=== PATIENT | female | born 1940 | race Caucasian/White ===

== ENCOUNTER 2017-07-18 07:18 | Emergency (ER) | payer BC, MEDICARE ==
[2017-07-18] MEDS ORDERED: NORMAL SALINE 500 ML IV ONE (07:25)
[2017-07-18 07:48] LABS: ABSOLUTE BASOPHILS # (AUTO) 0.1 10^3/uL (0.0-0.2); ABSOLUTE EOSINOPHILS # (AUTO) 0.8 10^3/uL (0.0-0.6); ABSOLUTE LYMPHOCYTES (AUTO) 1.6 10^3/uL (0.5-4.7); ABSOLUTE MONOCYTES (AUTO) 1.2 10^3/uL (0.1-1.4); ABSOLUTE NEUT (AUTO) 4.8 10^3/uL (1.7-8.2); BASOPHILS % (AUTO) 0.8 % (0-2); HEMATOCRIT 41.3 % (36.0-47.0); HEMOGLOBIN 13.9 g/dL (12.0-15.5); HGB HCT DIFFERENCE 0.4; LYMPHOCYTES % (AUTO) 18.9 % (13-45); MEAN CORPUSCULAR HEMOGLOBIN 31.3 pg (27.0-33.4); MEAN CORPUSCULAR HGB CONC 33.7 g/dL (32.0-36.0); MEAN CORPUSCULAR VOLUME 93 fl (80-97); MONOCYTES % (AUTO) 14.7 % (3-13); RED BLOOD COUNT 4.45 10^6/uL (3.72-5.28); RED CELL DISTRIBUTION WIDTH 12.5 % (11.5-14.0); SEGMENTED NEUTROPHILS % (AUTO) 56.6 % (42-78); WHITE BLOOD COUNT 8.4 10^3/uL (4.0-10.5)
[2017-07-18 07:59] LABS: VENOUS BLOOD BASE EXCESS 3.9 mmol/L; VENOUS BLOOD HCO3 29.3 mmol/L (20-32); VENOUS BLOOD PCO2 47.2 mmHg (35-63); VENOUS BLOOD PH 7.41 (7.30-7.42)
[2017-07-18 08:02] LABS: APPEARANCE,URINE CLEAR; BILIRUBIN,URINE NEGATIVE (NEGATIVE); GLUCOSE, URINE NEGATIVE (NEGATIVE); KETONES,URINE NEGATIVE (NEGATIVE); LEUKOCYTE ESTERASE,URINE NEGATIVE (NEGATIVE); NITRITE,URINE NEGATIVE (NEGATIVE); PROTEIN,URINE NEGATIVE (NEGATIVE); PROTHROMBIN TIME 13.1 SEC (11.4-15.4); URINE SPECIFIC GRAVITY 1.008; UROBILINOGEN,URINE NEGATIVE mg/dL (<2.0)
[2017-07-18 08:06] LABS: ALANINE AMINOTRANSFERASE 31 U/L (9-52); ALKALINE PHOSPHATASE 56 U/L (38-126); ANION GAP 14 (5-19); ASPARTATE AMINO TRANSFERASE 24 U/L (14-36); BILIRUBIN,DIRECT 0.4 mg/dL (0.0-0.4); BILIRUBIN,TOTAL 0.4 mg/dL (0.2-1.3); BLOOD UREA NITROGEN 16 mg/dL (7-20); CARBON DIOXIDE 28 mmol/L (22-30); CHLORIDE 98 mmol/L (98-107); CREATINE KINASE 51 U/L (30-135); CREATININE RESULT 0.73 mg/dL (0.52-1.25); GLUCOSE 126 mg/dL (75-110); MAGNESIUM 1.8 mg/dL (1.6-2.3); POTASSIUM 4.3 mmol/L (3.6-5.0); SODIUM 140.2 mmol/L (137-145); TOTAL PROTEIN 7.2 g/dL (6.3-8.2)
[2017-07-18 08:13] LABS: CREATINE KINASE MB 1.08 ng/mL (<4.55)
[2017-07-18 08:18] LABS: TROPONIN I < 0.012 ng/mL
--- NOTE | 2017-07-18 08:20 | RADIOLOGY REPORT (SQ) ---
EXAM DESCRIPTION: CHEST SINGLE VIEW COMPLETED DATE/TIME: 07/18/2017 8:08 am REASON FOR STUDY: sob COMPARISON: 07/02/2014 EXAM PARAMETERS: NUMBER OF VIEWS: One view. TECHNIQUE: Single frontal radiographic view of the chest acquired. RADIATION DOSE: NA LIMITATIONS: None. FINDINGS: LUNGS AND PLEURA: Stable chronic lung change without new opacities, masses or pneumothorax . No pleural effusion. MEDIASTINUM AND HILAR STRUCTURES: No masses. Contour normal. HEART AND VASCULAR STRUCTURES: Heart normal in size. Normal vasculature. BONES: No acute findings. HARDWARE: None in the chest. OTHER: No other significant finding. IMPRESSION: NO ACUTE CARDIOPULMONARY PROCESS. NO SIGNIFICANT CHANGE FROM PRIOR STUDY. TECHNICAL DOCUMENTATION: JOB ID: [id number]
--- NOTE | 2017-07-18 08:20 | ER Document Report ---
ED General - General Chief Complaint: Shortness Of Breath Stated Complaint: SHORTNESS OF BREATH Time Seen by Provider: 07/18/17 07:24 TRAVEL OUTSIDE OF THE [place] IN LAST 30 DAYS: No - HPI Patient complains to provider of: Shortness of breath Notes: patient coming in for evaluation shortness of breath. According to EMS patient called for shortness of breath ongoing for the last 2 days. Patient states productive sputum. Patient denies any fevers chills nausea vomiting. Patient has a history of COPD patient does admit to currently smoking. Upon evaluation patient is in no obvious distress however upon asking questions patient does seem to be somewhat confused. Patient is aware of her name is aware that she is in the ER and the year. No other complaints denies chest pain abdominal pain. - Related Data Allergies/Adverse Reactions: No Known Allergies Allergy (Verified 07/18/17 10:03) Past Medical History - Social History Smoking Status: Former Smoker Chew tobacco use (# tins/day): No Frequency of alcohol use: None Drug Abuse: None Family History: Reviewed & Not Pertinent Patient has suicidal ideation: No Patient has homicidal ideation: No - Past Medical History Cardiac Medical History: Reports: Hx Hypertension Pulmonary Medical History: Reports: Hx COPD Renal/ Medical History: Denies: Hx Peritoneal Dialysis Psychiatric Medical History: Denies: Hx Depression - Immunizations Hx Diphtheria, Pertussis, Tetanus Vaccination: Yes Hx Pneumococcal Vaccination: 10/11/00 Review of Systems - Review of Systems Constitutional: No symptoms reported EENT: No symptoms reported Cardiovascular: No symptoms reported Respiratory: Cough, Short of breath Gastrointestinal: No symptoms reported Genitourinary: No symptoms reported Female Genitourinary: No symptoms reported Musculoskeletal: No symptoms reported Skin: No symptoms reported Hematologic/Lymphatic: No symptoms reported Neurological/Psychological: No symptoms reported -: Yes All other systems reviewed and negative Physical Exam - Vital signs Vitals: Pulse Ox 99 07/18/17 07:25 Interpretation: Normal - General General appearance: Appears well, Alert - HEENT Head: Normocephalic, Atraumatic Eyes: Normal Pupils: PERRL - Respiratory Respiratory status: No respiratory distress Chest status: Nontender Breath sounds: Normal Chest palpation: Normal - Cardiovascular Rhythm: Regular Heart sounds: Normal auscultation Murmur: No - Abdominal Inspection: Normal Distension: No distension Bowel sounds: Normal Tenderness: Nontender Organomegaly: No organomegaly - Back Back: Normal, Nontender - Extremities General upper extremity: Normal inspection, Nontender, Normal color, Normal ROM , Normal temperature General lower extremity: Normal inspection, Nontender, Normal color, Normal ROM , Normal temperature, Normal weight bearing. No: Olu's sign - Neurological Neuro grossly intact: Yes Cognition: Normal Orientation: AAOx4 [place] Coma Scale Eye Opening: Spontaneous [place] Coma Scale Verbal: Oriented [place] Coma Scale Motor: Obeys Commands [place] Coma Scale Total: 15 Speech: Normal Motor strength normal: LUE, RUE, LLE, RLE Sensory: Normal - Psychological Associated symptoms: Normal affect, Normal mood - Skin Skin Temperature: Warm Skin Moisture: Dry Skin Color: Normal Course - Re-evaluation Re-evalutation: 07/18/17 08:19 Review of the patient's previous visit shows encephalopathy due to disease process versus underlying dementia. Patient was supposed to follow-up neurology. At this time patient has no family at bedside. Patient's laboratory studies are returned and not show any significant calls for any altered mental status or serious infection. More likely underlying COPD exacerbation. - Vital Signs Vital signs: Temp Pulse Resp BP Pulse Ox 97.4 F 15 150/78 H 97 07/18/17 08:01 07/18/17 10:00 07/18/17 10:00 07/18/17 10:00 - Laboratory Result Diagrams: 07/18/17 07:30 07/18/17 07:30 Laboratory results interpreted by me: 07/18/17 07/18/17 07:30 07:30 Monocytes % 14.7 H Eosinophils % 9.0 H Absolute Eosinophils 0.8 H Glucose 126 H Discharge - Discharge Clinical Impression: COPD (chronic obstructive pulmonary disease) Qualifiers: COPD type: unspecified COPD Qualified Code(s): J44.9 - Chronic obstructive pulmonary disease, unspecified Condition: Good Disposition: HOME, SELF-CARE Instructions: Chronic Obstructive Lung Disease ([facility]) Additional Instructions: Take medications as prescribed return to the ER if symptoms worsen. Follow-up with your primary care physician. Prescriptions: Prednisone [Deltasone 20 mg Tablet] 3 tab PO DAILY 5 Days tablet
[2017-07-18 10:05] VITALS: BP 150/78
[2017-07-18] MEDS ORDERED: PREDNISONE 20 MG TABLET PO ONE (10:12)
[2017-07-18] MEDS ORDERED: PREDNISONE 20 MG TABLET ONE (10:13)
--- NOTE | 2017-07-19 06:27 | EKG REPORT ---
SEVERITY:- ABNORMAL ECG - SINUS RHYTHM BORDERLINE RIGHT AXIS DEVIATION CONSIDER LEFT VENTRICULAR HYPERTROPHY : Confirmed by: Jennie Obregon MD 19-Jul-2017 06:26:48
== END 2017-07-18 10:25 | disposition home or self-care (01) ==
LOC: ER 07:18
DX: J44.9 Chronic obstructive pulmonary disease, unspecified (principal); F17.200 Nicotine dependence, unspecified, uncomplicated; I10 Essential (primary) hypertension
CPT/HCPCS: 93005; 99285; 36415; 82553; 82550; 83735; 85025; 85610; 80053; 81001; 84484; 82803; 71010; 93010; A9270; J7040; J7512

== ENCOUNTER 2017-08-20 10:39 | Emergency (ER) | payer MEDICARE ==
[2017-08-20] MEDS ORDERED: IPRATROPIUM/ALBUTEROL 0.5-2.5 MG/3 ML AMPUL NEB ONE (10:54)
[2017-08-20] MEDS ORDERED: METHYLPREDNISOLONE INJ 125 MG/2 ML SDV IM ONE (10:54)
--- NOTE | 2017-08-20 11:00 | ER Document Report ---
ED Medical Screen (RME) - General Chief Complaint: Shortness Of Breath Stated Complaint: DIFFICULTY BREATHING Time Seen by Provider: 08/20/17 10:53 Mode of Arrival: Ambulatory Information source: Patient TRAVEL OUTSIDE OF THE [place] IN LAST 30 DAYS: No - HPI Patient complains to provider of: sob Onset: Other - pt. has h/o copd and has 02 at home in the evenings with sob earlier this am -- went to PCP's this am and was sent herer for further evaluation. - Related Data Allergies/Adverse Reactions: No Known Allergies Allergy (Verified 08/20/17 10:46) Home Medications: Current Home Medications Fluticasone/Vilanterol [Breo Ellipta 200-25 Mcg INH] 1 inh IH BID 08/20/17 [ History] Past Medical History - Past Medical History Cardiac Medical History: Reports: Hx Hypertension Pulmonary Medical History: Reports: Hx COPD Renal/ Medical History: Denies: Hx Peritoneal Dialysis Psychiatric Medical History: Denies: Hx Depression - Immunizations Hx Diphtheria, Pertussis, Tetanus Vaccination: Yes History of Influenza Vaccine for 07/2017 - 12/2017 Season: Unknown Physical Exam - Vital signs Vitals: Temp Pulse Resp BP Pulse Ox 97.6 F 91 22 H 162/93 H 94 08/20/17 10:46 08/20/17 10:46 08/20/17 10:46 08/20/17 10:46 08/20/17 10:46 Course - Vital Signs Vital signs: Temp Pulse Resp BP Pulse Ox 97.6 F 91 22 H 162/93 H 94 08/20/17 10:46 08/20/17 10:46 08/20/17 10:46 08/20/17 10:46 08/20/17 10:46
--- NOTE | 2017-08-20 11:34 | RADIOLOGY REPORT (SQ) ---
EXAM DESCRIPTION: CHEST PA/LAT COMPLETED DATE/TIME: 08/20/2017 11:25 am REASON FOR STUDY: sob COMPARISON: 07/02/2014 EXAM PARAMETERS: NUMBER OF VIEWS: two views TECHNIQUE: Digital Frontal and Lateral radiographic views of the chest acquired. RADIATION DOSE: NA LIMITATIONS: none FINDINGS: LUNGS AND PLEURA: The lungs are hyperexpanded with flattening of the diaphragms. Scarring in the left upper lobe. Cannot exclude developing nodule in the left upper lobe. MEDIASTINUM AND HILAR STRUCTURES: No masses or contour abnormalities. HEART AND VASCULAR STRUCTURES: Heart normal size. No evidence for failure. BONES: No acute findings. HARDWARE: None in the chest. OTHER: No other significant finding. IMPRESSION: 1. Chronic lung changes with no acute cardiopulmonary disease. 2. Scarring in the left upper lobe. Cannot entirely exclude developing nodule. TECHNICAL DOCUMENTATION: JOB ID: [id number] [employer]- All Rights Reserved
[2017-08-20 11:37] LABS: ABSOLUTE BASOPHILS # (AUTO) 0.1 10^3/uL (0.0-0.2); ABSOLUTE EOSINOPHILS # (AUTO) 0.3 10^3/uL (0.0-0.6); ABSOLUTE LYMPHOCYTES (AUTO) 1.4 10^3/uL (0.5-4.7); ABSOLUTE MONOCYTES (AUTO) 0.7 10^3/uL (0.1-1.4); BASOPHILS % (AUTO) 0.9 % (0-2); EOSINOPHILS % (AUTO) 4.7 % (0-6); HEMATOCRIT 42.7 % (36.0-47.0); HEMOGLOBIN 14.5 g/dL (12.0-15.5); HGB HCT DIFFERENCE 0.8; LYMPHOCYTES % (AUTO) 18.6 % (13-45); MEAN CORPUSCULAR HEMOGLOBIN 31.1 pg (27.0-33.4); MEAN CORPUSCULAR VOLUME 92 fl (80-97); MONOCYTES % (AUTO) 9.3 % (3-13); RED BLOOD COUNT 4.66 10^6/uL (3.72-5.28); RED CELL DISTRIBUTION WIDTH 12.3 % (11.5-14.0); SEGMENTED NEUTROPHILS % (AUTO) 66.5 % (42-78); WHITE BLOOD COUNT 7.5 10^3/uL (4.0-10.5)
[2017-08-20 12:02] LABS: ALANINE AMINOTRANSFERASE 34 U/L (9-52); ALBUMIN 4.8 g/dL (3.5-5.0); ALKALINE PHOSPHATASE 65 U/L (38-126); ANION GAP 17 (5-19); ASPARTATE AMINO TRANSFERASE 28 U/L (14-36); BILIRUBIN,DIRECT 0.6 mg/dL (0.0-0.4); BILIRUBIN,TOTAL 0.7 mg/dL (0.2-1.3); BLOOD UREA NITROGEN 14 mg/dL (7-20); CALCIUM 10.4 mg/dL (8.4-10.2); CARBON DIOXIDE 29 mmol/L (22-30); CHLORIDE 97 mmol/L (98-107); CREATININE RESULT 0.88 mg/dL (0.52-1.25); GLUCOSE 122 mg/dL (75-110); POTASSIUM 4.2 mmol/L (3.6-5.0); SODIUM 142.5 mmol/L (137-145)
[2017-08-20 13:17] VITALS: BP 150/75
[2017-08-20] MEDS ORDERED: ALBUTEROL SULFATE HFA (90 MCG/PUFF) 8 GM MDI (1 MDI/ER DISP) IH ONE (13:21)
--- NOTE | 2017-08-20 13:23 | ER Document Report ---
ED General - General Chief Complaint: Shortness Of Breath Stated Complaint: DIFFICULTY BREATHING Time Seen by Provider: 08/20/17 10:53 Mode of Arrival: Ambulatory TRAVEL OUTSIDE OF THE [place] IN LAST 30 DAYS: No - HPI Patient complains to provider of: Difficulty breathing Notes: Patient coming in with family at bedside for difficulty breathing. Patient has underlying dementia seen by myself last time supposed follow-up with neurology for dementia coming today from referral PCP states concerned about pneumonia patient less than 24-hour history shortness of breath with a cough. No fevers or chills reported by the family member. No production of sputum. Patient is resting comfortably upon my evaluation patient looks nontoxic upon my evaluation. - Related Data Allergies/Adverse Reactions: No Known Allergies Allergy (Verified 08/20/17 10:46) Home Medications: Current Home Medications Fluticasone/Vilanterol [Breo Ellipta 200-25 Mcg INH] 1 inh IH BID 08/20/17 [ History] Past Medical History - General Information source: Patient - Social History Smoking Status: Never Smoker Chew tobacco use (# tins/day): No Frequency of alcohol use: None Drug Abuse: None Family History: Reviewed & Not Pertinent Patient has suicidal ideation: No Patient has homicidal ideation: No - Past Medical History Cardiac Medical History: Reports: Hx Hypertension Pulmonary Medical History: Reports: Hx COPD Renal/ Medical History: Denies: Hx Peritoneal Dialysis Psychiatric Medical History: Denies: Hx Depression - Immunizations Hx Diphtheria, Pertussis, Tetanus Vaccination: Yes Hx Pneumococcal Vaccination: 10/11/00 Review of Systems - Review of Systems Constitutional: No symptoms reported EENT: No symptoms reported Cardiovascular: No symptoms reported Respiratory: Cough, Short of breath Gastrointestinal: No symptoms reported Genitourinary: No symptoms reported Female Genitourinary: No symptoms reported Musculoskeletal: No symptoms reported Skin: No symptoms reported Hematologic/Lymphatic: No symptoms reported Neurological/Psychological: No symptoms reported -: Yes All other systems reviewed and negative Physical Exam - Vital signs Vitals: Temp Pulse Resp BP Pulse Ox 97.6 F 91 22 H 162/93 H 94 08/20/17 10:46 08/20/17 10:46 08/20/17 10:46 08/20/17 10:46 08/20/17 10:46 Interpretation: Normal - General General appearance: Appears well, Alert - HEENT Head: Normocephalic, Atraumatic Eyes: Normal Pupils: PERRL - Respiratory Respiratory status: No respiratory distress Chest status: Nontender Breath sounds: Wheezing Chest palpation: Normal - Cardiovascular Rhythm: Regular Heart sounds: Normal auscultation Murmur: No - Abdominal Inspection: Normal Distension: No distension Bowel sounds: Normal Tenderness: Nontender Organomegaly: No organomegaly - Back Back: Normal, Nontender - Extremities General upper extremity: Normal inspection, Nontender, Normal color, Normal ROM , Normal temperature General lower extremity: Normal inspection, Nontender, Normal color, Normal ROM , Normal temperature, Normal weight bearing. No: Olu's sign - Neurological Neuro grossly intact: Yes Cognition: Normal Orientation: AAOx4 [place] Coma Scale Eye Opening: Spontaneous [place] Coma Scale Verbal: Oriented [place] Coma Scale Motor: Obeys Commands [place] Coma Scale Total: 15 Speech: Normal Motor strength normal: LUE, RUE, LLE, RLE Sensory: Normal - Psychological Associated symptoms: Normal affect, Normal mood - Skin Skin Temperature: Warm Skin Moisture: Dry Skin Color: Normal Course - Re-evaluation Re-evalutation: 08/20/17 15:47 Patient coming on more likely a COPD exacerbation. Patient will be treated with bronchodilators and steroids at this time. Chest x-ray is negative for any signs of pneumonia. Patient has no signs of her story failure will be discharged home family is happy and agrees with this plan. - Vital Signs Vital signs: Temp Pulse Resp BP Pulse Ox 97.5 F 92 18 150/75 H 96 08/20/17 13:17 08/20/17 13:17 08/20/17 13:17 08/20/17 13:17 08/20/17 13:17 - Laboratory Result Diagrams: 08/20/17 11:17 08/20/17 11:17 Laboratory results interpreted by me: 08/20/17 11:17 Chloride 97 L Glucose 122 H Calcium 10.4 H Direct Bilirubin 0.6 H Discharge - Discharge Clinical Impression: COPD exacerbation Condition: Good Disposition: HOME, SELF-CARE Instructions: Chronic Obstructive Lung Disease ([facility]) Additional Instructions: At this time your laboratory values and your chest x-ray did not show any critical pathology. Please follow-up with your primary care physician please use your inhalers at home or at least an albuterol inhaler 2 puffs every 4 hours. Take steroids as prescribed. Prescriptions: Prednisone [Deltasone 20 mg Tablet] 60 mg PO DAILY 5 Days #30 tablet
== END 2017-08-20 13:39 | disposition home or self-care (01) ==
LOC: ER 10:39
DX: J44.1 Chronic obstructive pulmonary disease with (acute) exacerbation (principal); I10 Essential (primary) hypertension
CPT/HCPCS: 94640; 99285; 96372; 36415; 85025; 80053; 71020; J2930; J3490; A9270; J7620

== ENCOUNTER 2017-12-19 10:50 | Inpatient (IN) | payer MEDICARE ==
[2017-12-19] MEDS ORDERED: MAGNESIUM SULFATE/D5W 1 GM/100 ML RTUPB IV ONE (11:02)
[2017-12-19] MEDS ORDERED: NORMAL SALINE 1000 ML 1,000 ML IV ONE ×2 (11:09→11:47)
[2017-12-19 11:25] LABS: VENOUS BLOOD BASE EXCESS 2.5 mmol/L; VENOUS BLOOD HCO3 27.3 mmol/L (20-32); VENOUS BLOOD PCO2 42.5 mmHg (35-63); VENOUS BLOOD PH 7.43 (7.30-7.42)
[2017-12-19] MEDS ORDERED: LEVOFLOXACIN 500 MG/D5W RTU 500 MG/100 ML RTUPB IV ONE (11:27)
[2017-12-19 11:28] LABS: HEMATOCRIT 41.1 % (36.0-47.0); HEMOGLOBIN 13.7 g/dL (12.0-15.5); MEAN CORPUSCULAR HEMOGLOBIN 30.1 pg (27.0-33.4); MEAN CORPUSCULAR HGB CONC 33.2 g/dL (32.0-36.0); MEAN CORPUSCULAR VOLUME 90 fl (80-97); PLATELET COUNT 363 10^3/uL (150-450); RED BLOOD COUNT 4.55 10^6/uL (3.72-5.28)
[2017-12-19 11:31] LABS: INTERNATIONAL RATION (INR) 1.06; PROTHROMBIN TIME 14.5 SEC (11.4-15.4)
--- NOTE | 2017-12-19 11:34 | RADIOLOGY REPORT (SQ) ---
EXAM DESCRIPTION: CHEST SINGLE VIEW COMPLETED DATE/TIME: 12/19/2017 11:22 am REASON FOR STUDY: sob COMPARISON: 08/20/2017. NUMBER OF VIEWS: One view. TECHNIQUE: Single frontal radiographic view of the chest acquired. LIMITATIONS: None. FINDINGS: LUNGS AND PLEURA: Airspace disease in the left lung apex. No pleural effusion. Attenuated blood vessels and flattened penny-diaphragms. MEDIASTINUM AND HILAR STRUCTURES: No masses. Contour normal. HEART AND VASCULAR STRUCTURES: Heart normal in size. Normal vasculature. BONES: No acute findings. HARDWARE: None in the chest. OTHER: No other significant finding. IMPRESSION: COPD. AIRSPACE DISEASE IN THE LEFT LUNG APEX LIKELY DUE TO PNEUMONIA. THIS MAY BE BACT ERIAL BUT SINCE THIS IS IN AN APICAL LOCATION, TUBERCULOSIS IS A POSSIBLE CONSIDERATION. COMMENT: Pertinent findings on the imaging study reported as a CRITICAL RESULT to ANTHONY Knapp at11:28 on 12/19/2017. Category of Critical Result: Infiltrate in the left upper lobe. This may be a bacterial although tub erculosis is a consideration. TECHNICAL DOCUMENTATION: JOB ID: [id number] [employer]- All Rights Reserved Reading location - IP/workstation name: [email or web address]
[2017-12-19 11:46] LABS: ALANINE AMINOTRANSFERASE 38 U/L (9-52); ALBUMIN 3.6 g/dL (3.5-5.0); ALKALINE PHOSPHATASE 129 U/L (38-126); ANION GAP 13 (5-19); ASPARTATE AMINO TRANSFERASE 41 U/L (14-36); BILIRUBIN,DIRECT 0.6 mg/dL (0.0-0.4); BILIRUBIN,TOTAL 0.6 mg/dL (0.2-1.3); BLOOD UREA NITROGEN 39 mg/dL (7-20); CALCIUM 9.3 mg/dL (8.4-10.2); CARBON DIOXIDE 26 mmol/L (22-30); CHLORIDE 97 mmol/L (98-107); CREATINE KINASE 22 U/L (30-135); GLUCOSE 318 mg/dL (75-110); POTASSIUM 3.9 mmol/L (3.6-5.0); SODIUM 136.3 mmol/L (137-145)
[2017-12-19 11:47] LABS: ABSOLUTE LYMPHOCYTES# (MANUAL) 1.2 10^3/uL (0.5-4.7); ABSOLUTE MONOCYTES # (MANUAL) 2.2 10^3/uL (0.1-1.4); ABSOLUTE NEUTROPHILS# (MANUAL) 27.6 10^3/uL (1.7-8.2); BASOPHILS % (MANUAL) 0 % (0-2); EOSINOPHILS % (MANUAL) 0 % (0-6); LYMPHOCYTES % (MANUAL) 3 % (13-45); MONOCYTES % (MANUAL) 7 % (3-13); SEGMENTED NEUTROPHILS % (MAN) 89 % (42-78); TOTAL CELLS COUNTED 100
[2017-12-19 11:48] LABS: PLATELET COMMENT ADEQUATE; RBC MORPHOLOGY COMMENT NORMO-CYTIC/CHROMIC
[2017-12-19 11:54] LABS: TROPONIN I 0.014 ng/mL
--- NOTE | 2017-12-19 13:08 | ER Document Report ---
ED General - General Chief Complaint: Respiratory Distress Stated Complaint: SHORTNESS OF BREATH Time Seen by Provider: 12/19/17 11:00 TRAVEL OUTSIDE OF THE [place] IN LAST 30 DAYS: No - HPI Patient complains to provider of: Respiratory distress Notes: Is slightly confused concerning for underlying sepsis patient is hypotensive and cryptic upon arrival. According EMS there call for shortness of breath states intermittent fevers over the last few days. Patient with coarse sounding cough. Was given breathing treatments in route. Otherwise patient again slightly confused not a big contributor to the HPI - Related Data Allergies/Adverse Reactions: No Known Allergies Allergy (Verified 12/19/17 11:21) Past Medical History - Social History Smoking Status: Former Smoker Chew tobacco use (# tins/day): No Frequency of alcohol use: None Drug Abuse: None Family History: Reviewed & Not Pertinent Patient has suicidal ideation: No Patient has homicidal ideation: No - Past Medical History Cardiac Medical History: Reports: Hx Hypertension Pulmonary Medical History: Reports: Hx COPD Renal/ Medical History: Denies: Hx Peritoneal Dialysis Psychiatric Medical History: Denies: Hx Depression - Immunizations Hx Diphtheria, Pertussis, Tetanus Vaccination: Yes Hx Pneumococcal Vaccination: 10/11/00 Review of Systems - Review of Systems -: Yes ROS unobtainable due to patient's medical condition - Confusion Physical Exam - Vital signs Vitals: Temp Pulse Resp BP Pulse Ox 99 F 90 24 H 71/58 L 93 12/19/17 10:50 12/19/17 10:50 12/19/17 10:50 12/19/17 10:50 12/19/17 10:50 Interpretation: Hypotensive, Tachypneic - Hypotensive - General General appearance: Alert, Other - Confused In distress: Mild - HEENT Head: Normocephalic, Atraumatic Eyes: Normal Pupils: PERRL - Respiratory Respiratory status: Respiratory distress - Rhonchi wheezing mild to moderate Chest status: Nontender Breath sounds: Rhonchi, Wheezing Chest palpation: Normal - Cardiovascular Rhythm: Regular Heart sounds: Normal auscultation Murmur: No - Abdominal Inspection: Normal Distension: No distension Bowel sounds: Normal Tenderness: Nontender Organomegaly: No organomegaly - Back Back: Normal, Nontender - Extremities General upper extremity: Normal inspection, Nontender, Normal color, Normal ROM , Normal temperature General lower extremity: Normal inspection, Nontender, Normal color, Normal ROM , Normal temperature, Normal weight bearing. No: Olu's sign - Neurological Neuro grossly intact: Yes Cognition: Normal Kun Coma Scale Eye Opening: Spontaneous [place] Coma Scale Verbal: Confused [place] Coma Scale Motor: Obeys Commands [place] Coma Scale Total: 14 Motor strength normal: LUE, RUE, LLE, RLE Sensory: Normal - Skin Skin Temperature: Warm Skin Moisture: Dry Skin Color: Normal Course - Re-evaluation Re-evalutation: 12/19/17 15:25 Patient chest x-ray shows left upper lobe pneumonia concern for significant infectious etiology therefore patient was placed on contact precautions. Patient was initially given Levaquin for antibiotic coverage. Patient does have significant leukocytosis hypotension improved with IV fluids. Patient oxygenation also improved with supplement of 2 L. Patient previous visits were reviewed previous laboratory studies and radiological studies were also reviewed. Patient seemed to improve. Discussed with hospitalist will admit the patient to the ICU for further management. - Vital Signs Vital signs: Temp Pulse Resp BP Pulse Ox 99 F 90 20 109/85 100 12/19/17 10:50 12/19/17 10:50 12/19/17 15:02 12/19/17 15:02 12/19/17 15:02 - Laboratory Result Diagrams: 12/19/17 11:05 12/19/17 11:05 Laboratory results interpreted by me: 12/19/17 12/19/17 12/19/17 11:05 11:05 11:05 WBC 31.0 H* Seg Neuts % (Manual) 89 H Lymphocytes % (Manual) 3 L Abs Neuts (Manual) 27.6 H Abs Monocytes (Manual) 2.2 H VBG pH Sodium 136.3 L Chloride 97 L BUN 39 H Creatinine 1.49 H Est GFR ( Amer) 41 L Est GFR (Non-Af Amer) 34 L Glucose 318 H Lactic Acid Direct Bilirubin 0.6 H AST 41 H Alkaline Phosphatase 129 H Creatine Kinase 22 L NT-Pro-B Natriuret Pep 2060 H 12/19/17 12/19/17 11:10 11:10 WBC Seg Neuts % (Manual) Lymphocytes % (Manual) Abs Neuts (Manual) Abs Monocytes (Manual) VBG pH 7.43 H Sodium Chloride BUN Creatinine Est GFR ( Amer) Est GFR (Non-Af Amer) Glucose Lactic Acid 3.5 H Direct Bilirubin AST Alkaline Phosphatase Creatine Kinase NT-Pro-B Natriuret Pep Critical Care Note - Critical Care Note Total time excluding time spent on procedures (mins): 35 Comments: Multiple re-evaluations for sepsis Discharge - Discharge Clinical Impression: Pulmonary nodule, Hypotension Emphysema lung Qualifiers: Emphysema type: unspecified Qualified Code(s): J43.9 - Emphysema, unspecified Left upper lobe pneumonia Qualifiers: Pneumonia type: due to unspecified organism Qualified Code(s): J18.1 - Lobar pneumonia, unspecified organism Condition: Fair Disposition: ADMITTED INPATIENT Admitting Provider: Hospitalist [facility] Unit Admitted: ICU - . Patient hospitalist
[2017-12-19] MEDS ORDERED: IPRATROPIUM/ALBUTEROL 0.5-2.5 MG/3 ML AMPUL NEB PRN (13:14)
[2017-12-19] MEDS ORDERED: ACETAMINOPHEN 325 MG TABLET PO PRN (13:14)
[2017-12-19] MEDS ORDERED: DEXTROSE 5%-WATER 250 ML with NOREPINEPHRINE BITARTRATE 4 MG IV PRN ×2 (13:17)
[2017-12-19] MEDS ORDERED: VANCOMYCIN HCL 0 MG in DEXTROSE 5%-WATER 250 ML IV NR (13:30)
[2017-12-19] MEDS: NORMAL SALINE 1000 ML 1,000 ML IV PRN ×2 (14:02→14:06)
[2017-12-19] MEDS ORDERED: HEPARIN SOD (PORCINE) 5,000 UNIT/ML 1 ML SYRINGE SUBCUT ONE (15:00)
[2017-12-19] MEDS ORDERED: VANCOMYCIN HCL 1,000 MG in DEXTROSE 5%-WATER 250 ML IV ONE (15:00)
[2017-12-19] MEDS ORDERED: HYDROCORTISONE SOD SUCCINATE INJ/PF 100 MG/2 ML SDV IV ONE (15:00)
[2017-12-19] MEDS: NORMAL SALINE 1000 ML 1,000 ML IV SCH (15:30)
--- NOTE | 2017-12-19 15:31 | ER Document Report ---
Sepsis - Vital Signs Vitals: Temp Pulse Resp BP Pulse Ox 99 F 90 20 109/85 100 12/19/17 10:50 12/19/17 10:50 12/19/17 15:02 12/19/17 15:02 12/19/17 15:02 - Cardiovascular Peripheral Pulse Strength: Normal Capillary refill: < 3 seconds Rhythm: Regular Heart Sounds: Normal auscultation - Respiratory Breath Sounds: Rhonchi Respiratory Status: No respiratory distress - Skin Skin Color: Normal
[2017-12-19 15:53] LABS: APPEARANCE,URINE CLEAR; BILIRUBIN,URINE NEGATIVE (NEGATIVE); COLOR,URINE YELLOW; GLUCOSE, URINE 50 mg/dL (NEGATIVE); KETONES,URINE NEGATIVE (NEGATIVE); LEUKOCYTE ESTERASE,URINE NEGATIVE (NEGATIVE); NITRITE,URINE NEGATIVE (NEGATIVE); PROTEIN,URINE NEGATIVE (NEGATIVE); URINE SPECIFIC GRAVITY 1.012; UROBILINOGEN,URINE NEGATIVE mg/dL (<2.0)
[2017-12-19] MEDS: CEFEPIME 1 GM/D5W RTU 1 GM/50 ML RTUPB IV SCH (16:23)
--- NOTE | 2017-12-19 17:49 | PDOC H&P ---
History of Present Illness Admission Date/PCP: 12/19/17 15:50 Patient complains of: Shortness of breath History of Present Illness: ELIZA ALSTON is a 77 year old female with a past medical history of COPD, presents with 10-14 days of intermittent fever, nonproductive cough, confusion and shortness of breath. She is brought to the emergency room with confusion by her son who is no longer at bedside. She is unable to provide history and subsequently it is obtained by the record. Patient is chronically ill- appearing unable to speak intelligibly, awake and alert oriented 1 only. In the emergency room she is found to have hypotension and an infiltrate of the left apex complicated by a known lung nodule in the same location. She receives albuterol and Atrovent, empiric antibiotic and referred to the hospitalist for admission. Past Medical History Cardiac Medical History: Reports: Hypertension Pulmonary Medical History: Reports: Chronic Obstructive Pulmonary Disease (COPD) , Other - Left apex lung nodule Psychiatric Medical History: Denies: Depression Social History Information Source: [facility], [facility] Records Lives with: Family Smoking Status: Former Smoker Frequency of Alcohol Use: None Hx Recreational Drug Use: No Hx Prescription Drug Abuse: No - Advance Directive Resuscitation Status: Full Code Family History Family History: Other - Unobtainable Parental Family History Reviewed: No - Unobtainable Children Family History Reviewed: No - Unobtainable Sibling(s) Family History Reviewed.: No - Unobtainable Medication/Allergy Home Medications: Alendronate Sodium [Fosamax] 70 mg PO WE@1000 12/19/17 Carvedilol [Coreg 6.25 mg Tablet] 6.25 mg PO Q12 12/19/17 Fluticasone/Vilanterol [Breo Ellipta 200-25 Mcg INH] 1 inh IH DAILY 12/19/17 Triamterene/Hydrochlorothiazid [Triamterene-Hctz 37.5-25 mg Tb] 1 tab PO DAILY 12/19/17 Allergies/Adverse Reactions: No Known Allergies Allergy (Verified 12/19/17 11:21) Review of Systems ROS unobtainable: Due to mental status Physical Exam Vital Signs: Temp Pulse Resp BP Pulse Ox 99 F 90 14 100/63 98 12/19/17 10:50 12/19/17 10:50 12/19/17 16:47 12/19/17 16:47 12/19/17 16:47 General appearance: PRESENT: cooperative, disheveled, mild distress, thin. ABSENT: hard of hearing Head exam: PRESENT: atraumatic, normocephalic Eye exam: PRESENT: conjunctiva pink, EOMI, PERRLA. ABSENT: scleral icterus Ear exam: PRESENT: normal external ear exam Mouth exam: PRESENT: moist, tongue midline Neck exam: ABSENT: carotid bruit, JVD, lymphadenopathy, thyromegaly Respiratory exam: PRESENT: accessory muscle use, prolonged expiratory phas, retraction, rhonchi, tachypnea, wheezes Cardiovascular exam: PRESENT: RRR. ABSENT: diastolic murmur, rubs, systolic murmur Pulses: PRESENT: normal dorsalis pedis pul Vascular exam: PRESENT: normal capillary refill GI/Abdominal exam: PRESENT: normal bowel sounds, soft. ABSENT: distended, guarding, mass, organolmegaly, rebound, tenderness Rectal exam: PRESENT: deferred Extremities exam: PRESENT: full ROM. ABSENT: calf tenderness, clubbing, pedal edema Neurological exam: PRESENT: alert, awake, oriented to person, oriented to place , oriented to time, oriented to situation, CN II-XII grossly intact. ABSENT: motor sensory deficit Psychiatric exam: PRESENT: appropriate affect, normal mood. ABSENT: homicidal ideation, suicidal ideation Skin exam: PRESENT: dry, intact, warm. ABSENT: cyanosis, rash Results Laboratory Results: 12/19/17 15:56 Lactic Acid 1.8 Impressions: Chest X-Ray 12/19/17 11:01 IMPRESSION: COPD. AIRSPACE DISEASE IN THE LEFT LUNG APEX LIKELY DUE TO PNEUMONIA. THIS MAY BE BACTERIAL BUT SINCE THIS IS IN AN APICAL LOCATION, TUBERCULOSIS IS A POSSIBLE CONSIDERATION. Assessment & Plan - Diagnosis (1) Sepsis Is this a current diagnosis for this admission?: Yes Plan: Secondary to pneumonia, IV fluid challenge, unclear history of steroid dependence, evaluate random cortisol, Solu-Cortef 1 follow-up blood culture, sputum AFB, CBC and chemistry. (2) Encephalopathy acute Is this a current diagnosis for this admission?: Yes Plan: Likely secondary to sepsis though unclear baseline. Supportive care (3) Left upper lobe pneumonia Qualifiers: Pneumonia type: due to unspecified organism Qualified Code(s): J18.1 - Lobar pneumonia, unspecified organism Is this a current diagnosis for this admission?: Yes Plan: Unclear risks for TB, isolation pending results for AFB, TB for PCR and PPD. - Time Time Spent: 50 to 70 Minutes - Inpatient Certification Medical Necessity: Need Close Monitoring Due to Risk of Patient Decompensation
[2017-12-19] MEDS: IPRATROPIUM/ALBUTEROL 0.5-2.5 MG/3 ML AMPUL NEB SCH (20:24)
[2017-12-19] MEDS ORDERED: CEFEPIME 2 GM/D5W RTU 50 ML IV SCH (22:00)
--- NOTE | 2017-12-19 22:01 | EKG REPORT ---
SEVERITY:- ABNORMAL ECG - SINUS RHYTHM BORDERLINE RIGHT AXIS DEVIATION CONSIDER LEFT VENTRICULAR HYPERTROPHY BORDERLINE PROLONGED QT INTERVAL : Confirmed by: Yinka Story 19-Dec-2017 22:00:47
[2017-12-19] MEDS: CLONAZEPAM 1 MG TABLET PO SCH (22:28)
[2017-12-19] MEDS: HEPARIN SOD (PORCINE) 5,000 UNIT/ML 1 ML SYRINGE SUBCUT SCH (22:29)
[2017-12-20] MEDS: NORMAL SALINE 1000 ML 1,000 ML IV SCH (01:32)
[2017-12-20] MEDS: IPRATROPIUM/ALBUTEROL 0.5-2.5 MG/3 ML AMPUL NEB SCH ×4 (02:20→20:27)
[2017-12-20] MEDS: HEPARIN SOD (PORCINE) 5,000 UNIT/ML 1 ML SYRINGE SUBCUT SCH ×3 (05:38→22:28)
[2017-12-20 07:25] LABS: HEMATOCRIT 32.6 % (36.0-47.0); MEAN CORPUSCULAR HEMOGLOBIN 29.3 pg (27.0-33.4); MEAN CORPUSCULAR HGB CONC 31.9 g/dL (32.0-36.0); MEAN CORPUSCULAR VOLUME 92 fl (80-97); PLATELET COUNT 250 10^3/uL (150-450); RED BLOOD COUNT 3.55 10^6/uL (3.72-5.28); RED CELL DISTRIBUTION WIDTH 14.1 % (11.5-14.0); WHITE BLOOD COUNT 20.6 10^3/uL (4.0-10.5)
[2017-12-20 07:31] LABS: HEMOGLOBIN 10.4 g/dL (12.0-15.5)
[2017-12-20 07:42] LABS: ANION GAP 10 (5-19); BLOOD UREA NITROGEN 25 mg/dL (7-20); CALCIUM 7.3 mg/dL (8.4-10.2); CARBON DIOXIDE 21 mmol/L (22-30); CHLORIDE 111 mmol/L (98-107); GLUCOSE 172 mg/dL (75-110); POTASSIUM 3.4 mmol/L (3.6-5.0); SODIUM 141.6 mmol/L (137-145)
[2017-12-20 08:11] LABS: ABSOLUTE LYMPHOCYTES# (MANUAL) 0.2 10^3/uL (0.5-4.7); ABSOLUTE NEUTROPHILS# (MANUAL) 19.4 10^3/uL (1.7-8.2); BASOPHILS % (MANUAL) 0 % (0-2); EOSINOPHILS % (MANUAL) 0 % (0-6); LYMPHOCYTES % (MANUAL) 1 % (13-45); MONOCYTES % (MANUAL) 5 % (3-13); SEGMENTED NEUTROPHILS % (MAN) 94 % (42-78); TOTAL CELLS COUNTED 100
[2017-12-20 08:12] LABS: ANISOCYTOSIS SLIGHT; POIKILOCYTOSIS 1+; TEAR DROP CELLS SLIGHT; TOXIC GRANULATION SLIGHT
[2017-12-20 08:13] LABS: PLATELET COMMENT ADEQUATE
[2017-12-20] MEDS ORDERED: POTASSIUM CHLORIDE 10 MEQ TABLET.SA PO ONE (10:05)
--- NOTE | 2017-12-20 14:42 | PDOC PROGRESS REPORT ---
Subjective Progress Note for:: 12/20/17 Subjective:: The patient is a 77-year-old female who has been admitted for sepsis secondary to pneumonia. She presents with a 10 a 14 day history of intermittent fevers, nonproductive cough followed by progressive confusion and shortness of breath. She actually has an infiltrate in the left apical lung field. This is within the same area as a known nodule is. According to the patient's son who is at the bedside today she is dramatically improved when compared to yesterday. Reason For Visit: SEPSIS ARF PNEUMONIA Physical Exam Vital Signs: Temp Pulse Resp BP Pulse Ox 98.1 F 108 H 18 111/50 L 100 12/20/17 12:06 12/20/17 13:48 12/20/17 13:48 12/20/17 12:06 12/20/17 13:48 Pulse Oximeter Continuous Start: 12/19/17 13: 15 Freq: RTQ4 Status: Active Document 12/20/17 12:29 TPO (Rec: 12/20/17 12:29 TPO [email or web address]) Pulse Oximetry Assessment Oxygen Saturation (92-100) 97 Oxygen Flow Rate (L/min) 2 Oxygen Delivery Method Nasal Cannula Fraction of Inspired Oxygen (FIO2) 28 Equipment Usage Equipment in Use Continuous SpO2 Machine # 7 Intake & Output 12/19/17 12/20/17 12/21/17 06:59 06:59 06:59 Intake Total 2237 375 Balance 2237 375 Weight 45.1 kg Additional comments: Patient appears to be an elderly white female. She was sitting up eating her breakfast. She answers only very few questions, but, her son told me that she is more talkative today. She was appropriate with her son this morning. She asked him where he parked her car and they had a slight conversation. The patient's facial appearance is unremarkable. The patient's lung exam is noteworthy for rhonchi which are most pronounced over the right anterior chest. I actually did not hear much over the left chest. The lungs are clear in the bases posteriorly. No wheezing is noted. The cardiac exam is regular without murmurs, gallops or rubs. The abdomen is soft, flat and benign. Bowel sounds are noted in the lower quadrants. She does not have guarding or rebound noted and there are no hernias or masses present. The lower extremities are unremarkable. Trace edema is present. However, the patient's skin is warm, dry and intact without lesions or rashes. Results Laboratory Results: 12/20/17 06:40 12/20/17 06:40 12/19/17 12/20/17 12/20/17 15:56 06:40 06:40 WBC 20.6 H RBC 3.55 L Hgb 10.4 L D Hct 32.6 L MCV 92 MCH 29.3 MCHC 31.9 L RDW 14.1 H Plt Count 250 Seg Neutrophils % Not Reportable Lymphocytes % Not Reportable Monocytes % Not Reportable Eosinophils % Not Reportable Basophils % Not Reportable Absolute Neutrophils Not Reportable Absolute Lymphocytes Not Reportable Absolute Monocytes Not Reportable Absolute Eosinophils Not Reportable Absolute Basophils Not Reportable Sodium 141.6 Potassium 3.4 L Chloride 111 H Carbon Dioxide 21 L Anion Gap 10 BUN 25 H Creatinine 1.05 Est GFR ( Amer) > 60 Est GFR (Non-Af Amer) 51 L Glucose 172 H Lactic Acid 1.8 Calcium 7.3 L Impressions: Chest X-Ray 12/19/17 11:01 IMPRESSION: COPD. AIRSPACE DISEASE IN THE LEFT LUNG APEX LIKELY DUE TO PNEUMONIA. THIS MAY BE BACTERIAL BUT SINCE THIS IS IN AN APICAL LOCATION, TUBERCULOSIS IS A POSSIBLE CONSIDERATION. Assessment & Plan - Diagnosis (1) Sepsis Is this a current diagnosis for this admission?: Yes Plan: Patient presented with severe hypotension with systolic blood pressure less than 80 and severe leukocytosis. She presents with sepsis secondary to pneumonia. Clinically, she is improving. Blood pressure is improved. She is off Levophed. Also, her white blood cell count is improved. (2) Left upper lobe pneumonia Qualifiers: Pneumonia type: due to unspecified organism Qualified Code(s): J18.1 - Lobar pneumonia, unspecified organism Is this a current diagnosis for this admission?: Yes Plan: The admitting provider has ordered TB rule out protocol. The patient is currently on cefepime and vancomycin and appears to be dramatically improved in the last 24 hours. Blood cultures have been sent. I will also send Legionella urinary antigen, pneumococcus and mycoplasma titers. (3) Encephalopathy acute Is this a current diagnosis for this admission?: Yes Plan: According to the son the patient is much better today. - Time Time Spent with patient: 25-34 minutes - Inpatient Certification Medical Necessity: Need for IV Antibiotics, Risk of Complication if Not Cared For in Hospital, Risk of Diagnosis Which Will Require Inpatient Eval/Care/ Monitoring
[2017-12-20 15:02] LABS: PATH REVIEW PATHOLOGIST REVIEWED
[2017-12-20] MEDS: CEFEPIME 1 GM/D5W RTU 1 GM/50 ML RTUPB IV SCH (16:18)
[2017-12-20] MEDS ORDERED: VANCOMYCIN HCL 500 MG in DEXTROSE 5%-WATER 100 ML IV SCH (18:00)
[2017-12-20] MEDS: CLONAZEPAM 1 MG TABLET PO SCH (22:28)
[2017-12-21] MEDS: IPRATROPIUM/ALBUTEROL 0.5-2.5 MG/3 ML AMPUL NEB SCH ×4 (01:50→20:38)
[2017-12-21] MEDS: HEPARIN SOD (PORCINE) 5,000 UNIT/ML 1 ML SYRINGE SUBCUT SCH ×3 (05:30→22:15)
[2017-12-21 06:43] LABS: ANION GAP 8 (5-19); BLOOD UREA NITROGEN 23 mg/dL (7-20); CALCIUM 8.1 mg/dL (8.4-10.2); CARBON DIOXIDE 25 mmol/L (22-30); CHLORIDE 105 mmol/L (98-107); GLUCOSE 154 mg/dL (75-110); POTASSIUM 3.3 mmol/L (3.6-5.0); SODIUM 137.6 mmol/L (137-145)
[2017-12-21 06:57] LABS: HEMATOCRIT 37.9 % (36.0-47.0); HEMOGLOBIN 12.4 g/dL (12.0-15.5); MEAN CORPUSCULAR HEMOGLOBIN 29.5 pg (27.0-33.4); MEAN CORPUSCULAR HGB CONC 32.8 g/dL (32.0-36.0); MEAN CORPUSCULAR VOLUME 90 fl (80-97); PLATELET COUNT 318 10^3/uL (150-450); RED BLOOD COUNT 4.21 10^6/uL (3.72-5.28); WHITE BLOOD COUNT 25.7 10^3/uL (4.0-10.5)
[2017-12-21 07:24] LABS: ABSOLUTE MONOCYTES # (MANUAL) 1.8 10^3/uL (0.1-1.4); ABSOLUTE NEUTROPHILS# (MANUAL) 22.9 10^3/uL (1.7-8.2); BASOPHILS % (MANUAL) 0 % (0-2); EOSINOPHILS % (MANUAL) 0 % (0-6); LYMPHOCYTES % (MANUAL) 4 % (13-45); MONOCYTES % (MANUAL) 7 % (3-13); SEGMENTED NEUTROPHILS % (MAN) 89 % (42-78); TOTAL CELLS COUNTED 100
[2017-12-21 07:26] LABS: PLATELET COMMENT ADEQUATE; RBC MORPHOLOGY COMMENT NORMO-CYTIC/CHROMIC
[2017-12-21] MEDS ORDERED: POTASSIUM CHLORIDE 10 MEQ TABLET.SA PO SCH (08:00)
[2017-12-21] MEDS: POTASSIUM CHLORIDE 20 MEQ/15 ML UDCUP PO SCH ×3 (14:54→22:15)
[2017-12-21] MEDS: CEFEPIME 1 GM/D5W RTU 1 GM/50 ML RTUPB IV SCH (15:00)
[2017-12-21] MEDS: VANCOMYCIN HCL 500 MG in NORMAL SALINE 100 ML IV SCH (17:55)
--- NOTE | 2017-12-21 18:37 | PDOC PROGRESS REPORT ---
Subjective Progress Note for:: 12/21/17 Subjective:: Unable to obtain due to mental status Review of system Unable to obtain due to mental status All laboratories and significant diagnostics have been reviewed Reason For Visit: SEPSIS ARF PNEUMONIA Physical Exam Vital Signs: Temp Pulse Resp BP Pulse Ox 98.5 F 118 H 21 H 150/80 H 99 12/21/17 03:10 12/21/17 03:10 12/21/17 03:10 12/21/17 03:10 12/21/17 04:00 Pulse Oximeter Continuous Start: 12/19/17 13: 15 Freq: RTQ4 Status: Active Document 12/21/17 04:00 CMI (Rec: 12/21/17 04:22 CMI [email or web address]) Pulse Oximetry Assessment Oxygen Saturation (92-100) 99 Oxygen Flow Rate (L/min) 2 Oxygen Delivery Method Nasal Cannula Fraction of Inspired Oxygen (FIO2) 28 Equipment Usage Equipment in Use Continuous SpO2 Machine # 7 Intake & Output 12/20/17 12/21/17 12/22/17 06:59 06:59 06:59 Intake Total 2237 1268 Balance 2237 1268 Weight 45.1 kg 54.2 kg General appearance: PRESENT: no acute distress, cooperative, thin Head exam: PRESENT: atraumatic, normocephalic Eye exam: PRESENT: conjunctiva pink, EOMI, PERRLA Ear exam: PRESENT: normal external ear exam Mouth exam: PRESENT: moist Neck exam: PRESENT: full ROM. ABSENT: JVD, lymphadenopathy Respiratory exam: PRESENT: rhonchi. ABSENT: tachypnea, unlabored, wheezes Cardiovascular exam: PRESENT: RRR. ABSENT: diastolic murmur, systolic murmur Vascular exam: PRESENT: normal capillary refill GI/Abdominal exam: PRESENT: normal bowel sounds, soft. ABSENT: tenderness Extremities exam: PRESENT: full ROM. ABSENT: pedal edema Musculoskeletal exam: ABSENT: ambulatory Neurological exam: PRESENT: alert. ABSENT: oriented to person, oriented to place, oriented to time, oriented to situation Skin exam: PRESENT: intact, normal color Results Laboratory Results: 12/21/17 05:48 12/21/17 05:48 12/20/17 12/20/17 12/21/17 06:40 06:40 05:48 WBC 20.6 H 25.7 H RBC 3.55 L 4.21 Hgb 10.4 L D 12.4 Hct 32.6 L 37.9 MCV 92 90 MCH 29.3 29.5 MCHC 31.9 L 32.8 RDW 14.1 H 14.0 Plt Count 250 318 Seg Neutrophils % Not Reportable Lymphocytes % Not Reportable Monocytes % Not Reportable Eosinophils % Not Reportable Basophils % Not Reportable Absolute Neutrophils Not Reportable Absolute Lymphocytes Not Reportable Absolute Monocytes Not Reportable Absolute Eosinophils Not Reportable Absolute Basophils Not Reportable Sodium 141.6 Potassium 3.4 L Chloride 111 H Carbon Dioxide 21 L Anion Gap 10 BUN 25 H Creatinine 1.05 Est GFR ( Amer) > 60 Est GFR (Non-Af Amer) 51 L Glucose 172 H Calcium 7.3 L Magnesium 12/21/17 05:48 WBC RBC Hgb Hct MCV MCH MCHC RDW Plt Count Seg Neutrophils % Lymphocytes % Monocytes % Eosinophils % Basophils % Absolute Neutrophils Absolute Lymphocytes Absolute Monocytes Absolute Eosinophils Absolute Basophils Sodium 137.6 Potassium 3.3 L Chloride 105 Carbon Dioxide 25 Anion Gap 8 BUN 23 H Creatinine 0.93 Est GFR ( Amer) > 60 Est GFR (Non-Af Amer) 59 L Glucose 154 H Calcium 8.1 L Magnesium 1.3 L Impressions: Chest X-Ray 12/19/17 11:01 IMPRESSION: COPD. AIRSPACE DISEASE IN THE LEFT LUNG APEX LIKELY DUE TO PNEUMONIA. THIS MAY BE BACTERIAL BUT SINCE THIS IS IN AN APICAL LOCATION, TUBERCULOSIS IS A POSSIBLE CONSIDERATION. Assessment & Plan - Diagnosis (1) Encephalopathy acute Is this a current diagnosis for this admission?: Yes Plan: It appears that patient may be having actually some sort of dementia. (2) Hypotension Is this a current diagnosis for this admission?: Yes Plan: Improved when compared to admission (3) Left upper lobe pneumonia Qualifiers: Pneumonia type: due to unspecified organism Qualified Code(s): J18.1 - Lobar pneumonia, unspecified organism Is this a current diagnosis for this admission?: Yes Plan: Discontinue cefepime and changed to Zosyn. Add PPD (4) Sepsis Is this a current diagnosis for this admission?: Yes Plan: Resolved (5) Emphysema lung Qualifiers: Emphysema type: unspecified Qualified Code(s): J43.9 - Emphysema, unspecified Is this a current diagnosis for this admission?: Yes Plan: Continue nebulizer treatment. Will add IV Solu-Medrol (6) Pulmonary nodule Is this a current diagnosis for this admission?: Yes Plan: Can be follow-up as outpatient - Time Time Spent with patient: 15-24 minutes Medications reviewed and adjusted accordingly: Yes Anticipated discharge: Acute Rehab Within: within 48 hours - Inpatient Certification Based on my medical assessment, after consideration of the patient's comorbidities, presenting symptoms, or acuity I expect that the services needed warrant INPATIENT care.: Yes I certify that my determination is in accordance with my understanding of Medicare's requirements for reasonable and necessary INPATIENT services [42 CFR 412.3e].: Yes Medical Necessity: Need Close Monitoring Due to Risk of Patient Decompensation, Need for IV Antibiotics
[2017-12-21] MEDS ORDERED: TUBERCULIN,PURIF.PROT.DERIV. 5 TU/0.1 ML TEST 1 ML VIAL ID ONE (19:00)
[2017-12-21] MEDS: CLONAZEPAM 1 MG TABLET PO SCH (22:15)
[2017-12-21] MEDS: METHYLPREDNISOLONE INJ 40 MG/1 ML SDV IV SCH (22:15)
[2017-12-22] MEDS: PIPERACILLIN SODIUM/TAZOBACTAM 3.375 GM in NORMAL SALINE 100 ML IV SCH ×5 (00:07→23:28)
[2017-12-22] MEDS: IPRATROPIUM/ALBUTEROL 0.5-2.5 MG/3 ML AMPUL NEB SCH ×4 (02:47→21:04)
[2017-12-22] MEDS: HEPARIN SOD (PORCINE) 5,000 UNIT/ML 1 ML SYRINGE SUBCUT SCH ×3 (05:23→22:37)
[2017-12-22] MEDS: METHYLPREDNISOLONE INJ 40 MG/1 ML SDV IV SCH ×3 (05:23→22:37)
[2017-12-22 06:51] LABS: HEMOGLOBIN 11.1 g/dL (12.0-15.5); MEAN CORPUSCULAR HEMOGLOBIN 29.4 pg (27.0-33.4); MEAN CORPUSCULAR HGB CONC 32.8 g/dL (32.0-36.0); MEAN CORPUSCULAR VOLUME 90 fl (80-97); PLATELET COUNT 255 10^3/uL (150-450); RED BLOOD COUNT 3.78 10^6/uL (3.72-5.28); RED CELL DISTRIBUTION WIDTH 14.2 % (11.5-14.0); WHITE BLOOD COUNT 20.4 10^3/uL (4.0-10.5)
[2017-12-22 07:09] LABS: ABSOLUTE LYMPHOCYTES# (MANUAL) 0.2 10^3/uL (0.5-4.7); ABSOLUTE MONOCYTES # (MANUAL) 0.4 10^3/uL (0.1-1.4); ABSOLUTE NEUTROPHILS# (MANUAL) 19.8 10^3/uL (1.7-8.2); BASOPHILS % (MANUAL) 0 % (0-2); EOSINOPHILS % (MANUAL) 0 % (0-6); LYMPHOCYTES % (MANUAL) 1 % (13-45); MONOCYTES % (MANUAL) 2 % (3-13); SEGMENTED NEUTROPHILS % (MAN) 97 % (42-78); TOTAL CELLS COUNTED 100
[2017-12-22 07:11] LABS: PLATELET COMMENT ADEQUATE; RBC MORPHOLOGY COMMENT NORMO-CYTIC/CHROMIC
[2017-12-22 08:00] LABS: ANION GAP 11 (5-19); BLOOD UREA NITROGEN 18 mg/dL (7-20); CALCIUM 7.9 mg/dL (8.4-10.2); CARBON DIOXIDE 24 mmol/L (22-30); CHLORIDE 101 mmol/L (98-107); GLUCOSE 273 mg/dL (75-110)
[2017-12-22 08:06] LABS: POTASSIUM 4.7 mmol/L (3.6-5.0)
--- NOTE | 2017-12-22 16:15 | PDOC PROGRESS REPORT ---
Subjective Progress Note for:: 12/22/17 Subjective:: Unable to obtain due to mental status Review of system Unable to obtain due to mental status All laboratories and significant diagnostics have been reviewed Reason For Visit: SEPSIS ARF PNEUMONIA Physical Exam Vital Signs: Temp Pulse Resp BP Pulse Ox 98.9 F 100 20 82/50 L 95 12/22/17 00:07 12/22/17 02:47 12/22/17 02:47 12/22/17 00:07 12/22/17 04:00 Pulse Oximeter Continuous Start: 12/19/17 13: 15 Freq: RTQ4 Status: Active Document 12/22/17 04:00 STI (Rec: 12/22/17 04:00 STI [email or web address]) Pulse Oximetry Assessment Oxygen Saturation (92-100) 95 Oxygen Flow Rate (L/min) 2.0 Oxygen Delivery Method Nasal Cannula Fraction of Inspired Oxygen (FIO2) 28 Equipment Usage Equipment in Use Continuous SpO2 Machine # 7 Intake & Output 12/20/17 12/21/17 12/22/17 06:59 06:59 06:59 Intake Total 2237 1268 520 Output Total 1600 Balance 2237 1268 -1080 Weight 45.1 kg 54.2 kg 51.1 kg General appearance: PRESENT: no acute distress, thin Head exam: PRESENT: atraumatic, normocephalic Eye exam: PRESENT: EOMI, PERRLA Ear exam: PRESENT: normal external ear exam Mouth exam: PRESENT: moist Neck exam: PRESENT: full ROM. ABSENT: JVD, lymphadenopathy, tenderness Respiratory exam: PRESENT: clear to auscultation anthony, decreased breath sounds Cardiovascular exam: PRESENT: RRR. ABSENT: diastolic murmur, systolic murmur Vascular exam: PRESENT: normal capillary refill GI/Abdominal exam: PRESENT: normal bowel sounds, soft. ABSENT: tenderness Extremities exam: PRESENT: full ROM. ABSENT: pedal edema, tenderness Musculoskeletal exam: PRESENT: ambulatory Neurological exam: PRESENT: alert. ABSENT: oriented to person, oriented to place, oriented to time, oriented to situation Skin exam: PRESENT: intact, normal color Results Laboratory Results: 12/21/17 05:48 12/21/17 05:48 12/21/17 12/21/17 05:48 05:48 WBC 25.7 H RBC 4.21 Hgb 12.4 Hct 37.9 MCV 90 MCH 29.5 MCHC 32.8 RDW 14.0 Plt Count 318 Seg Neutrophils % Not Reportable Lymphocytes % Not Reportable Monocytes % Not Reportable Eosinophils % Not Reportable Basophils % Not Reportable Absolute Neutrophils Not Reportable Absolute Lymphocytes Not Reportable Absolute Monocytes Not Reportable Absolute Eosinophils Not Reportable Absolute Basophils Not Reportable Sodium 137.6 Potassium 3.3 L Chloride 105 Carbon Dioxide 25 Anion Gap 8 BUN 23 H Creatinine 0.93 Est GFR ( Amer) > 60 Est GFR (Non-Af Amer) 59 L Glucose 154 H Calcium 8.1 L Magnesium 1.3 L Impressions: Chest X-Ray 12/19/17 11:01 IMPRESSION: COPD. AIRSPACE DISEASE IN THE LEFT LUNG APEX LIKELY DUE TO PNEUMONIA. THIS MAY BE BACTERIAL BUT SINCE THIS IS IN AN APICAL LOCATION, TUBERCULOSIS IS A POSSIBLE CONSIDERATION. Assessment & Plan - Diagnosis (1) Encephalopathy acute Is this a current diagnosis for this admission?: Yes Plan: It appears that patient may be having actually some sort of dementia. (2) Hypotension Qualifiers: Hypotension type: unspecified hypotension type Qualified Code(s): I95.9 - Hypotension, unspecified Is this a current diagnosis for this admission?: Yes Plan: Resolved (3) Left upper lobe pneumonia Qualifiers: Pneumonia type: due to unspecified organism Qualified Code(s): J18.1 - Lobar pneumonia, unspecified organism Is this a current diagnosis for this admission?: Yes Plan: Continue current management. PPD placed yesterday (4) Sepsis Qualifiers: Sepsis type: sepsis due to unspecified organism Qualified Code(s): A41.9 - Sepsis, unspecified organism Is this a current diagnosis for this admission?: Yes Plan: Resolved (5) Emphysema lung Qualifiers: Emphysema type: unspecified Qualified Code(s): J43.9 - Emphysema, unspecified Is this a current diagnosis for this admission?: Yes Plan: Continue nebulizer treatment and IV Solu-Medrol (6) Pulmonary nodule Is this a current diagnosis for this admission?: Yes Plan: Can be followed-up as outpatient - Time Time Spent with patient: Less than 15 minutes Medications reviewed and adjusted accordingly: Yes Anticipated discharge: SNF Within: when bed available - Inpatient Certification Based on my medical assessment, after consideration of the patient's comorbidities, presenting symptoms, or acuity I expect that the services needed warrant INPATIENT care.: Yes I certify that my determination is in accordance with my understanding of Medicare's requirements for reasonable and necessary INPATIENT services [42 CFR 412.3e].: Yes Medical Necessity: Need Close Monitoring Due to Risk of Patient Decompensation, Need for IV Antibiotics
[2017-12-22 18:14] LABS: VANCOMYCIN,TROUGH 7.1 ug/mL (5.0-20.0)
[2017-12-22] MEDS: VANCOMYCIN HCL 500 MG in NORMAL SALINE 100 ML IV SCH (18:28)
[2017-12-22] MEDS: CLONAZEPAM 1 MG TABLET PO SCH (22:37)
[2017-12-23] MEDS: IPRATROPIUM/ALBUTEROL 0.5-2.5 MG/3 ML AMPUL NEB SCH ×4 (01:50→21:27)
[2017-12-23] MEDS: PIPERACILLIN SODIUM/TAZOBACTAM 3.375 GM in NORMAL SALINE 100 ML IV SCH ×3 (05:35→17:47)
[2017-12-23] MEDS: HEPARIN SOD (PORCINE) 5,000 UNIT/ML 1 ML SYRINGE SUBCUT SCH ×3 (05:35→22:32)
[2017-12-23] MEDS: METHYLPREDNISOLONE INJ 40 MG/1 ML SDV IV SCH ×2 (05:35→14:15)
[2017-12-23] MEDS ORDERED: VANCOMYCIN HCL 1,250 MG in DEXTROSE 5%-WATER 250 ML IV SCH (06:00)
[2017-12-23 06:47] LABS: HEMATOCRIT 33.3 % (36.0-47.0); HEMOGLOBIN 10.9 g/dL (12.0-15.5); MEAN CORPUSCULAR HEMOGLOBIN 29.4 pg (27.0-33.4); MEAN CORPUSCULAR HGB CONC 32.6 g/dL (32.0-36.0); MEAN CORPUSCULAR VOLUME 90 fl (80-97); PLATELET COUNT 278 10^3/uL (150-450); RED BLOOD COUNT 3.69 10^6/uL (3.72-5.28); RED CELL DISTRIBUTION WIDTH 14.1 % (11.5-14.0); WHITE BLOOD COUNT 21.3 10^3/uL (4.0-10.5)
[2017-12-23 06:52] LABS: ANION GAP 10 (5-19); BLOOD UREA NITROGEN 24 mg/dL (7-20); CALCIUM 7.9 mg/dL (8.4-10.2); CARBON DIOXIDE 24 mmol/L (22-30); CHLORIDE 102 mmol/L (98-107); GLUCOSE 285 mg/dL (75-110); POTASSIUM 4.1 mmol/L (3.6-5.0); SODIUM 135.8 mmol/L (137-145)
[2017-12-23 07:00] LABS: MYCOPLASMA PNEUMONIAE IGG AB 297 U/mL (0-99); MYCOPLASMA PNEUMONIAE IGM AB <770 U/mL (0-769)
[2017-12-23 07:35] LABS: ABSOLUTE LYMPHOCYTES# (MANUAL) 0.9 10^3/uL (0.5-4.7); ABSOLUTE NEUTROPHILS# (MANUAL) 20.4 10^3/uL (1.7-8.2); BASOPHILS % (MANUAL) 0 % (0-2); EOSINOPHILS % (MANUAL) 0 % (0-6); LYMPHOCYTES % (MANUAL) 3 % (13-45); MONOCYTES % (MANUAL) 0 % (3-13); SEGMENTED NEUTROPHILS % (MAN) 96 % (42-78); TOTAL CELLS COUNTED 100
[2017-12-23 07:36] LABS: ANISOCYTOSIS SLIGHT; TOXIC GRANULATION SLIGHT
[2017-12-23 07:37] LABS: PLATELET CLUMPS PRESENT; PLATELET COMMENT ADEQUATE
--- NOTE | 2017-12-23 15:30 | Progress Note ---
Provider Note Provider Note: ID Consult Note Asked to review the patient's chart by Pharmacy. Ms Cope is a 77 yo woman with PMH including COPD who presented with intermittent fevers for 1-2 weeks, SOB, and dry cough. She was found to have a new MICHELLE/apical infiltrate on CXR on admission. Her WBC count was 31, currently 21. Her workup has included blood cultures that are negative x 4 days, urine Legionella antigen that is pending, and serologic testing for antibodies to Mycoplasma that showed an elevated IgG and negative IgM. She was empirically placed on vancomycin and cefepime initially and now is receiving vancomycin and Zosyn. Impression/Recommendations Left upper lobe pneumonia - The patient has had a fever for two weeks and cough in conjunction with a new left apical infiltrate on CXR. 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 - She needs to have sputum induced and sent for AFB smear and culture x 3. - She should be on airborne isolation until 3 sputum smears for AFB have been obtained and found negative. A negative PPD or Quantiferon result does not rule out TB. - The patient's serologic results regarding Mycoplasma pneumoniae showing high titers of IgG antibodies alone are not diagnostic for current infection and might reflect previous infection; pneumonia due to Mycoplasma pneumoniae is more common in young adults. - For the possibility of pneumonia due to typical bacteria, she can continue Zosyn, but I doubt that vancomycin is needed. The likelihood of needing empiric MRSA coverage would be increased if she had a preceding history of influenza infection before being admitted, which has not been documented, and Staph aureus is an infrequent pulmonary pathogen. - I would specifically avoid treating this patient with a fluoroquinolone until she has the three negative AFB sputum smears, considering that fluoroquinolones have antimycobacterial activity and could confuse the clinical picture without resulting in cure - only a delay in diagnosis - if indeed she had pulmonary TB. Gurpreet Smiley MD pager [phone]
--- NOTE | 2017-12-23 20:54 | PDOC PROGRESS REPORT ---
Subjective Progress Note for:: 12/23/17 Subjective:: Unable to obtain due to mental status Review of system Unable to obtain due to mental status All laboratories and significant diagnostics have been reviewed Reason For Visit: SEPSIS ARF PNEUMONIA Physical Exam Vital Signs: Temp Pulse Resp BP Pulse Ox 97.7 F 113 H 20 119/71 95 12/23/17 03:42 12/23/17 03:42 12/23/17 02:00 12/23/17 03:42 12/23/17 03:42 Pulse Oximeter Continuous Start: 12/19/17 13: 15 Freq: RTQ4 Status: Complete Document 12/22/17 04:00 STI (Rec: 12/22/17 04:00 STI [email or web address]) Pulse Oximetry Assessment Oxygen Saturation (92-100) 95 Oxygen Flow Rate (L/min) 2.0 Oxygen Delivery Method Nasal Cannula Fraction of Inspired Oxygen (FIO2) 28 Equipment Usage Equipment in Use Continuous SpO2 Machine # 7 Intake & Output 12/21/17 12/22/17 12/23/17 06:59 06:59 06:59 Intake Total 1268 1003 800 Output Total 1600 600 Balance 1268 -597 200 Weight 54.2 kg 51.1 kg General appearance: PRESENT: cooperative, thin Head exam: PRESENT: atraumatic, normocephalic Eye exam: PRESENT: conjunctiva pink, EOMI, PERRLA Mouth exam: PRESENT: moist Neck exam: PRESENT: full ROM. ABSENT: JVD, lymphadenopathy, tenderness Respiratory exam: PRESENT: clear to auscultation anthony Cardiovascular exam: PRESENT: RRR. ABSENT: diastolic murmur, systolic murmur GI/Abdominal exam: PRESENT: normal bowel sounds, soft. ABSENT: tenderness Extremities exam: ABSENT: full ROM Musculoskeletal exam: PRESENT: ambulatory Neurological exam: PRESENT: alert, awake, other - pleasantly demented Results Laboratory Results: 12/22/17 12/22/17 12/22/17 05:43 05:43 17:42 WBC 20.4 H RBC 3.78 Hgb 11.1 L Hct 34.0 L MCV 90 MCH 29.4 MCHC 32.8 RDW 14.2 H Plt Count 255 Seg Neutrophils % Not Reportable Lymphocytes % Not Reportable Monocytes % Not Reportable Eosinophils % Not Reportable Basophils % Not Reportable Absolute Neutrophils Not Reportable Absolute Lymphocytes Not Reportable Absolute Monocytes Not Reportable Absolute Eosinophils Not Reportable Absolute Basophils Not Reportable Sodium 136.0 L Potassium 4.7 D Chloride 101 Carbon Dioxide 24 Anion Gap 11 BUN 18 Creatinine 0.80 0.81 Est GFR ( Amer) > 60 > 60 Est GFR (Non-Af Amer) > 60 > 60 Glucose 273 H Calcium 7.9 L Magnesium 1.3 L 12/22/17 05:43 NT-Pro-B Natriuret Pep 5000 H Impressions: Chest X-Ray 12/19/17 11:01 IMPRESSION: COPD. AIRSPACE DISEASE IN THE LEFT LUNG APEX LIKELY DUE TO PNEUMONIA. THIS MAY BE BACTERIAL BUT SINCE THIS IS IN AN APICAL LOCATION, TUBERCULOSIS IS A POSSIBLE CONSIDERATION. Assessment & Plan - Diagnosis (1) Encephalopathy acute Is this a current diagnosis for this admission?: No Plan: Patient suffers from dementia (2) Hypotension Qualifiers: Hypotension type: unspecified hypotension type Qualified Code(s): I95.9 - Hypotension, unspecified Is this a current diagnosis for this admission?: Yes Plan: Resolved (3) Left upper lobe pneumonia Qualifiers: Pneumonia type: due to unspecified organism Qualified Code(s): J18.1 - Lobar pneumonia, unspecified organism Is this a current diagnosis for this admission?: Yes Plan: Continue current management. Noted ID recommendations (4) Sepsis Qualifiers: Sepsis type: sepsis due to unspecified organism Qualified Code(s): A41.9 - Sepsis, unspecified organism Is this a current diagnosis for this admission?: Yes Plan: Resolved (5) Emphysema lung Qualifiers: Emphysema type: unspecified Qualified Code(s): J43.9 - Emphysema, unspecified Is this a current diagnosis for this admission?: Yes Plan: Continue nebulizer treatment and discontinue solumedrol (6) Pulmonary nodule Is this a current diagnosis for this admission?: Yes Plan: Can be followed-up as outpatient - Time Time Spent with patient: Less than 15 minutes Medications reviewed and adjusted accordingly: Yes Anticipated discharge: SNF Within: within 72 hours - Inpatient Certification Based on my medical assessment, after consideration of the patient's comorbidities, presenting symptoms, or acuity I expect that the services needed warrant INPATIENT care.: Yes I certify that my determination is in accordance with my understanding of Medicare's requirements for reasonable and necessary INPATIENT services [42 CFR 412.3e].: Yes Medical Necessity: Need Close Monitoring Due to Risk of Patient Decompensation, Need for IV Antibiotics
[2017-12-23] MEDS: CLONAZEPAM 1 MG TABLET PO SCH (22:32)
[2017-12-24] MEDS: PIPERACILLIN SODIUM/TAZOBACTAM 3.375 GM in NORMAL SALINE 100 ML IV SCH ×2 (00:49→05:44)
[2017-12-24] MEDS: IPRATROPIUM/ALBUTEROL 0.5-2.5 MG/3 ML AMPUL NEB SCH ×4 (01:21→21:02)
[2017-12-24] MEDS: HEPARIN SOD (PORCINE) 5,000 UNIT/ML 1 ML SYRINGE SUBCUT SCH ×3 (05:43→22:59)
[2017-12-24 07:25] LABS: HEMATOCRIT 33.8 % (36.0-47.0); HEMOGLOBIN 11.3 g/dL (12.0-15.5); MEAN CORPUSCULAR HEMOGLOBIN 30.2 pg (27.0-33.4); MEAN CORPUSCULAR HGB CONC 33.4 g/dL (32.0-36.0); MEAN CORPUSCULAR VOLUME 90 fl (80-97); PLATELET COUNT 305 10^3/uL (150-450); RED BLOOD COUNT 3.74 10^6/uL (3.72-5.28); WHITE BLOOD COUNT 21.8 10^3/uL (4.0-10.5)
[2017-12-24 07:42] LABS: ALANINE AMINOTRANSFERASE 71 U/L (9-52); ALBUMIN 2.8 g/dL (3.5-5.0); ALKALINE PHOSPHATASE 98 U/L (38-126); ANION GAP 14 (5-19); ASPARTATE AMINO TRANSFERASE 47 U/L (14-36); BILIRUBIN,DIRECT 0.2 mg/dL (0.0-0.4); BILIRUBIN,TOTAL 0.4 mg/dL (0.2-1.3); BLOOD UREA NITROGEN 24 mg/dL (7-20); CALCIUM 7.9 mg/dL (8.4-10.2); CARBON DIOXIDE 24 mmol/L (22-30); CHLORIDE 101 mmol/L (98-107); GLUCOSE 183 mg/dL (75-110); POTASSIUM 3.4 mmol/L (3.6-5.0); TOTAL PROTEIN 5.7 g/dL (6.3-8.2)
[2017-12-24 08:10] LABS: ABSOLUTE LYMPHOCYTES# (MANUAL) 0.4 10^3/uL (0.5-4.7); ABSOLUTE MONOCYTES # (MANUAL) 1.5 10^3/uL (0.1-1.4); ABSOLUTE NEUTROPHILS# (MANUAL) 19.6 10^3/uL (1.7-8.2); BASOPHILS % (MANUAL) 0 % (0-2); EOSINOPHILS % (MANUAL) 1 % (0-6); LYMPHOCYTES % (MANUAL) 1 % (13-45); MONOCYTES % (MANUAL) 7 % (3-13); SEGMENTED NEUTROPHILS % (MAN) 90 % (42-78); TOTAL CELLS COUNTED 100
[2017-12-24 08:11] LABS: ANISOCYTOSIS SLIGHT; PLATELET COMMENT ADEQUATE; TOXIC GRANULATION 1+
[2017-12-24] MEDS ORDERED: MAGNESIUM SULFATE 4 GM/100 ML RTUPB IV ONE (10:00)
[2017-12-24 15:38] LABS: STREP PNEUMO TYPE 14 7.2 ug/mL (>1.3); STREP PNEUMO TYPE 19 2.9 ug/mL (>1.3); STREP PNEUMO TYPE 26 19.9 ug/mL (>1.3); STREP PNEUMO TYPE 4 1.8 ug/mL (>1.3); STREP PNEUMO TYPE 56 10.7 ug/mL (>1.3)
[2017-12-24] MEDS ORDERED: CEFTRIAXONE 2 GM/D5W RTU 2 GM/50 ML RTUPB IV SCH (18:00)
--- NOTE | 2017-12-24 18:51 | PDOC PROGRESS REPORT ---
Subjective Progress Note for:: 12/24/17 Subjective:: Unable to obtain due to mental status Review of system Unable to obtain due to mental status All laboratories and significant diagnostics have been reviewed Reason For Visit: SEPSIS ARF PNEUMONIA Physical Exam Vital Signs: Temp Pulse Resp BP Pulse Ox 97.9 F 104 H 16 134/77 H 96 12/24/17 04:11 12/24/17 07:00 12/24/17 04:11 12/24/17 04:11 12/24/17 04:11 Pulse Oximeter Continuous Start: 12/19/17 13: 15 Freq: RTQ4 Status: Complete Document 12/22/17 04:00 STI (Rec: 12/22/17 04:00 STI [email or web address]) Pulse Oximetry Assessment Oxygen Saturation (92-100) 95 Oxygen Flow Rate (L/min) 2.0 Oxygen Delivery Method Nasal Cannula Fraction of Inspired Oxygen (FIO2) 28 Equipment Usage Equipment in Use Continuous SpO2 Machine # 7 Intake & Output 12/23/17 12/24/17 12/25/17 06:59 06:59 06:59 Intake Total 1392 415 Output Total 600 1800 Balance 792 -1385 Weight 52.6 kg 52.3 kg General appearance: PRESENT: cooperative, thin Head exam: PRESENT: atraumatic, normocephalic Eye exam: PRESENT: conjunctiva pale, EOMI, PERRLA Mouth exam: PRESENT: moist Neck exam: PRESENT: full ROM. ABSENT: JVD, lymphadenopathy, tenderness Respiratory exam: PRESENT: clear to auscultation anthony, decreased breath sounds Cardiovascular exam: PRESENT: RRR. ABSENT: diastolic murmur, systolic murmur Vascular exam: PRESENT: normal capillary refill GI/Abdominal exam: PRESENT: normal bowel sounds, soft. ABSENT: tenderness Extremities exam: PRESENT: full ROM. ABSENT: pedal edema Musculoskeletal exam: PRESENT: ambulatory Neurological exam: PRESENT: alert, awake, other - Pleasantly demented Psychiatric exam: PRESENT: appropriate affect Skin exam: PRESENT: intact, normal color Results Laboratory Results: 12/24/17 06:31 12/24/17 06:31 12/24/17 12/24/17 06:31 06:31 WBC 21.8 H RBC 3.74 Hgb 11.3 L Hct 33.8 L MCV 90 MCH 30.2 MCHC 33.4 RDW 14.0 Plt Count 305 Seg Neutrophils % Not Reportable Lymphocytes % Not Reportable Monocytes % Not Reportable Eosinophils % Not Reportable Basophils % Not Reportable Absolute Neutrophils Not Reportable Absolute Lymphocytes Not Reportable Absolute Monocytes Not Reportable Absolute Eosinophils Not Reportable Absolute Basophils Not Reportable Sodium 139.0 Potassium 3.4 L Chloride 101 Carbon Dioxide 24 Anion Gap 14 BUN 24 H Creatinine 0.83 Est GFR ( Amer) > 60 Est GFR (Non-Af Amer) > 60 Glucose 183 H Calcium 7.9 L Magnesium 1.2 L* Total Bilirubin 0.4 AST 47 H ALT 71 H Alkaline Phosphatase 98 Total Protein 5.7 L Albumin 2.8 L 12/22/17 05:43 NT-Pro-B Natriuret Pep 5000 H Impressions: Chest X-Ray 12/19/17 11:01 IMPRESSION: COPD. AIRSPACE DISEASE IN THE LEFT LUNG APEX LIKELY DUE TO PNEUMONIA. THIS MAY BE BACTERIAL BUT SINCE THIS IS IN AN APICAL LOCATION, TUBERCULOSIS IS A POSSIBLE CONSIDERATION. Assessment & Plan - Diagnosis (1) Encephalopathy acute Is this a current diagnosis for this admission?: No Plan: Patient suffers from dementia (2) Hypotension Qualifiers: Hypotension type: unspecified hypotension type Qualified Code(s): I95.9 - Hypotension, unspecified Is this a current diagnosis for this admission?: Yes Plan: Resolved (3) Left upper lobe pneumonia Qualifiers: Pneumonia type: due to unspecified organism Qualified Code(s): J18.1 - Lobar pneumonia, unspecified organism Is this a current diagnosis for this admission?: Yes Plan: Continue current management. Noted ID recommendations. Awaiting AFB culture results (4) Sepsis Qualifiers: Sepsis type: sepsis due to unspecified organism Qualified Code(s): A41.9 - Sepsis, unspecified organism Is this a current diagnosis for this admission?: Yes Plan: Resolved (5) Emphysema lung Qualifiers: Emphysema type: unspecified Qualified Code(s): J43.9 - Emphysema, unspecified Is this a current diagnosis for this admission?: Yes Plan: Continue nebulizer treatment (6) Pulmonary nodule Is this a current diagnosis for this admission?: Yes Plan: Can be followed-up as outpatient - Time Time Spent with patient: Less than 15 minutes Medications reviewed and adjusted accordingly: Yes Anticipated discharge: SNF, Acute Rehab Within: within 72 hours - Inpatient Certification Based on my medical assessment, after consideration of the patient's comorbidities, presenting symptoms, or acuity I expect that the services needed warrant INPATIENT care.: Yes I certify that my determination is in accordance with my understanding of Medicare's requirements for reasonable and necessary INPATIENT services [42 CFR 412.3e].: Yes Medical Necessity: Need Close Monitoring Due to Risk of Patient Decompensation
[2017-12-24] MEDS: CLONAZEPAM 1 MG TABLET PO SCH (22:59)
[2017-12-25] MEDS: IPRATROPIUM/ALBUTEROL 0.5-2.5 MG/3 ML AMPUL NEB SCH ×4 (02:05→21:02)
[2017-12-25] MEDS: HEPARIN SOD (PORCINE) 5,000 UNIT/ML 1 ML SYRINGE SUBCUT SCH ×2 (05:59→13:32)
[2017-12-25 08:10] LABS: ANION GAP 7 (5-19); BLOOD UREA NITROGEN 16 mg/dL (7-20); CALCIUM 7.7 mg/dL (8.4-10.2); CARBON DIOXIDE 28 mmol/L (22-30); CHLORIDE 101 mmol/L (98-107); GLUCOSE 135 mg/dL (75-110); POTASSIUM 3.3 mmol/L (3.6-5.0); SODIUM 135.6 mmol/L (137-145)
[2017-12-25] MEDS ORDERED: POTASSIUM CHLORIDE 10 MEQ TABLET.SA PO SCH (11:00)
--- NOTE | 2017-12-25 12:32 | RADIOLOGY REPORT (SQ) ---
EXAM DESCRIPTION: CT CHEST WITH COMPLETED DATE/TIME: 12/25/2017 11:52 am REASON FOR STUDY: eval for malignancy COMPARISON: None. TECHNIQUE: CT scan of the chest performed using helical scanning technique with dynamic intravenous contrast injection. Images reviewed with lung, soft tissue and bone windows. Reconstructed coronal and sagittal MPR images reviewed. All images stored on PACS. All CT scanners at this facility use dose modulation, iterative reconstruction, and/or weight based d osing when appropriate to reduce radiation dose to as low as reasonably achievable (ALARA). [facility]: Dose Right [facility]: CareDose [facility]: Dose Right [facility]: Teradose 4D [facility]: Q.branch CONTRAST TYPE AND DOSE: contrast/concentration: Isovue 370.00 mg/ml; Total Contrast Delivered: 80.0 ml; Total Saline Delivered: 55.0 ml RENAL FUNCTION: GFR > 60. RADIATION DOSE: CT Rad equipment meets quality standard of care and radiation dose reduction techniq ues were employed. CTDIvol: 5.0 mGy. DLP: 199 mGy-cm. . LIMITATIONS: None. FINDINGS: LUNGS AND PLEURA: COPD. Trace left pleural effusion. Dense consolidation in the left upp er lobe with associated bronchiectasis. No suspicious nodules. HILAR AND MEDIASTINAL STRUCTURES: No identified masses or abnormal nodes. HEART AND VASCULAR STRUCTURES: No aneurysm or dissection. No central pulmonary emboli. No pericardi al effusion. HARDWARE: None in the chest. UPPER ABDOMEN: No significant findings. Limited exam. THYROID AND OTHER SOFT TISSUES: No masses. No adenopathy. BONES: No significant finding. OTHER: No other significant finding. IMPRESSION: Left upper lobe pneumonia. Small left pleural effusion. TECHNICAL DOCUMENTATION: JOB ID: [id number] Quality ID # [id number]: Final reports with documentation of one or more dose reduction techniques (e.g., Au tomated exposure control, adjustment of the mA and/or kV according to patient size, use of iterative reconstruction technique) 2010 [employer]- All Rights Reserved Reading location - IP/workstation name: [email or web address]
[2017-12-25] MEDS: POTASSIUM CHLORIDE 20 MEQ/15 ML UDCUP PO SCH ×2 (13:32→17:38)
--- NOTE | 2017-12-25 16:49 | PDOC PROGRESS REPORT ---
Subjective Progress Note for:: 12/25/17 Subjective:: Unable to obtain due to mental status Review of system Unable to obtain due to mental status All laboratories and significant diagnostics have been reviewed Reason For Visit: SEPSIS ARF PNEUMONIA Physical Exam Vital Signs: Temp Pulse Resp BP Pulse Ox 98.2 F 120 H 16 129/75 H 91 L 12/25/17 04:19 12/25/17 04:19 12/25/17 04:19 12/25/17 04:19 12/25/17 04:19 Pulse Oximeter Continuous Start: 12/19/17 13: 15 Freq: RTQ4 Status: Complete Document 12/22/17 04:00 STI (Rec: 12/22/17 04:00 STI [email or web address]) Pulse Oximetry Assessment Oxygen Saturation (92-100) 95 Oxygen Flow Rate (L/min) 2.0 Oxygen Delivery Method Nasal Cannula Fraction of Inspired Oxygen (FIO2) 28 Equipment Usage Equipment in Use Continuous SpO2 Machine # 7 Intake & Output 12/24/17 12/25/17 12/26/17 06:59 06:59 06:59 Intake Total 415 1025 Output Total 1800 900 Balance -1385 125 Weight 52.3 kg General appearance: PRESENT: cooperative, thin Head exam: PRESENT: atraumatic Eye exam: PRESENT: conjunctiva pink, EOMI, PERRLA Ear exam: PRESENT: normal external ear exam Mouth exam: PRESENT: moist Neck exam: PRESENT: full ROM. ABSENT: JVD, lymphadenopathy, tenderness Respiratory exam: PRESENT: clear to auscultation anthony Cardiovascular exam: PRESENT: RRR. ABSENT: diastolic murmur, systolic murmur GI/Abdominal exam: PRESENT: normal bowel sounds, soft. ABSENT: tenderness Extremities exam: PRESENT: full ROM. ABSENT: pedal edema Musculoskeletal exam: PRESENT: ambulatory Neurological exam: PRESENT: alert, awake, oriented to person, oriented to place , oriented to time, oriented to situation, CN II-XII grossly intact Psychiatric exam: PRESENT: appropriate affect, normal mood Skin exam: PRESENT: intact, normal color Results Laboratory Results: 12/24/17 06:31 12/24/17 06:31 12/24/17 12/24/17 06:31 06:31 WBC 21.8 H RBC 3.74 Hgb 11.3 L Hct 33.8 L MCV 90 MCH 30.2 MCHC 33.4 RDW 14.0 Plt Count 305 Seg Neutrophils % Not Reportable Lymphocytes % Not Reportable Monocytes % Not Reportable Eosinophils % Not Reportable Basophils % Not Reportable Absolute Neutrophils Not Reportable Absolute Lymphocytes Not Reportable Absolute Monocytes Not Reportable Absolute Eosinophils Not Reportable Absolute Basophils Not Reportable Sodium 139.0 Potassium 3.4 L Chloride 101 Carbon Dioxide 24 Anion Gap 14 BUN 24 H Creatinine 0.83 Est GFR ( Amer) > 60 Est GFR (Non-Af Amer) > 60 Glucose 183 H Calcium 7.9 L Magnesium 1.2 L* Total Bilirubin 0.4 AST 47 H ALT 71 H Alkaline Phosphatase 98 Total Protein 5.7 L Albumin 2.8 L 12/22/17 05:43 NT-Pro-B Natriuret Pep 5000 H Impressions: Chest X-Ray 12/19/17 11:01 IMPRESSION: COPD. AIRSPACE DISEASE IN THE LEFT LUNG APEX LIKELY DUE TO PNEUMONIA. THIS MAY BE BACTERIAL BUT SINCE THIS IS IN AN APICAL LOCATION, TUBERCULOSIS IS A POSSIBLE CONSIDERATION. Assessment & Plan - Diagnosis (1) Encephalopathy acute Is this a current diagnosis for this admission?: No Plan: Patient suffers from dementia (2) Hypotension Qualifiers: Hypotension type: unspecified hypotension type Qualified Code(s): I95.9 - Hypotension, unspecified Is this a current diagnosis for this admission?: Yes Plan: Resolved (3) Left upper lobe pneumonia Qualifiers: Pneumonia type: due to unspecified organism Qualified Code(s): J18.1 - Lobar pneumonia, unspecified organism Is this a current diagnosis for this admission?: Yes Plan: Noted ID recommendations. Awaiting AFB culture results. CT scan of the chest noted. To place on higher dose Zosyn (4) Sepsis Qualifiers: Sepsis type: sepsis due to unspecified organism Qualified Code(s): A41.9 - Sepsis, unspecified organism Is this a current diagnosis for this admission?: Yes Plan: Resolved (5) Emphysema lung Qualifiers: Emphysema type: unspecified Qualified Code(s): J43.9 - Emphysema, unspecified Is this a current diagnosis for this admission?: Yes Plan: Continue nebulizer treatment (6) Pulmonary nodule Is this a current diagnosis for this admission?: Yes Plan: Can be followed-up as outpatient - Time Time Spent with patient: Less than 15 minutes Medications reviewed and adjusted accordingly: Yes Anticipated discharge: SNF Within: within 72 hours - Inpatient Certification Based on my medical assessment, after consideration of the patient's comorbidities, presenting symptoms, or acuity I expect that the services needed warrant INPATIENT care.: Yes I certify that my determination is in accordance with my understanding of Medicare's requirements for reasonable and necessary INPATIENT services [42 CFR 412.3e].: Yes Medical Necessity: Need Close Monitoring Due to Risk of Patient Decompensation, Need for IV Antibiotics
[2017-12-25] MEDS ORDERED: PIPERACILLIN/TAZOBACTAM 4.5 GM VIAL IV PRN (17:00)
[2017-12-25] MEDS ORDERED: PIPERACILLIN SODIUM/TAZOBACTAM 4.5 GM in NORMAL SALINE 100 ML IV ONE (17:00)
[2017-12-25] MEDS ORDERED: PIPERACILLIN/TAZOBACTAM 4.5 GM VIAL IV ONE (17:04)
[2017-12-26] MEDS: CLONAZEPAM 1 MG TABLET PO SCH ×2 (00:27→21:36)
[2017-12-26] MEDS: CARVEDILOL 6.25 MG TABLET PO SCH ×3 (00:27→21:35)
[2017-12-26] MEDS: HEPARIN SOD (PORCINE) 5,000 UNIT/ML 1 ML SYRINGE SUBCUT SCH ×4 (00:28→21:36)
[2017-12-26] MEDS: POTASSIUM CHLORIDE 20 MEQ/15 ML UDCUP PO SCH ×4 (00:29→10:39)
[2017-12-26] MEDS ORDERED: PIPERACILLIN/TAZOBACTAM 4.5 GM VIAL IV ONE (00:36)
[2017-12-26] MEDS ORDERED: PIPERACILLIN/TAZOBACTAM 2.25 GM VIAL IV ONE (00:37)
[2017-12-26] MEDS: PIPERACILLIN SODIUM/TAZOBACTAM 4.5 GM in NORMAL SALINE 100 ML IV SCH ×4 (01:13→17:41)
[2017-12-26] MEDS: IPRATROPIUM/ALBUTEROL 0.5-2.5 MG/3 ML AMPUL NEB SCH ×4 (02:07→20:16)
[2017-12-26 04:42] LABS: ABSOLUTE EOSINOPHILS # (AUTO) 0.5 10^3/uL (0.0-0.6); ABSOLUTE LYMPHOCYTES (AUTO) 0.9 10^3/uL (0.5-4.7); ABSOLUTE MONOCYTES (AUTO) 0.6 10^3/uL (0.1-1.4); ABSOLUTE NEUT (AUTO) 6.4 10^3/uL (1.7-8.2); BASOPHILS % (AUTO) 0.2 % (0-2); EOSINOPHILS % (AUTO) 6.3 % (0-6); HEMOGLOBIN 11.4 g/dL (12.0-15.5); LYMPHOCYTES % (AUTO) 10.4 % (13-45); MEAN CORPUSCULAR HGB CONC 33.5 g/dL (32.0-36.0); MEAN CORPUSCULAR VOLUME 90 fl (80-97); MONOCYTES % (AUTO) 6.7 % (3-13); PLATELET COUNT 271 10^3/uL (150-450); RED CELL DISTRIBUTION WIDTH 14.1 % (11.5-14.0); SEGMENTED NEUTROPHILS % (AUTO) 76.4 % (42-78); TOTAL CELLS COUNTED % (AUTO) 100 %; WHITE BLOOD COUNT 8.3 10^3/uL (4.0-10.5)
[2017-12-26 05:23] LABS: ANION GAP 10 (5-19); BLOOD UREA NITROGEN 11 mg/dL (7-20); CALCIUM 8.3 mg/dL (8.4-10.2); CARBON DIOXIDE 26 mmol/L (22-30); CHLORIDE 103 mmol/L (98-107); GLUCOSE 132 mg/dL (75-110); SODIUM 138.6 mmol/L (137-145)
[2017-12-26 05:32] LABS: POTASSIUM 4.3 mmol/L (3.6-5.0)
[2017-12-26] MEDS ORDERED: FLUTICASONE IH SCH (10:00)
[2017-12-26] MEDS ORDERED: VILANTEROL IH SCH (10:00)
[2017-12-26] MEDS: TRIAMTERENE/HYDROCHLOROTHIAZIDE 37.5-25 MG TABLET PO SCH (10:42)
--- NOTE | 2017-12-26 15:58 | PDOC PROGRESS REPORT ---
Subjective Progress Note for:: 12/26/17 Subjective:: Unable to obtain due to mental status Review of system Unable to obtain due to mental status All laboratories and significant diagnostics have been reviewed Reason For Visit: SEPSIS ARF PNEUMONIA Physical Exam Vital Signs: Temp Pulse Resp BP Pulse Ox 98.7 F 85 16 140/69 H 94 12/26/17 04:00 12/26/17 04:00 12/26/17 04:00 12/26/17 04:00 12/26/17 04:00 Pulse Oximeter Continuous Start: 12/19/17 13: 15 Freq: RTQ4 Status: Complete Document 12/22/17 04:00 STI (Rec: 12/22/17 04:00 STI [email or web address]) Pulse Oximetry Assessment Oxygen Saturation (92-100) 95 Oxygen Flow Rate (L/min) 2.0 Oxygen Delivery Method Nasal Cannula Fraction of Inspired Oxygen (FIO2) 28 Equipment Usage Equipment in Use Continuous SpO2 Machine # 7 Intake & Output 12/25/17 12/26/17 12/27/17 06:59 06:59 06:59 Intake Total 1225 1295 Output Total 1500 200 Balance -275 1095 Weight 52.2 kg 50 kg General appearance: PRESENT: cooperative, thin Head exam: PRESENT: atraumatic, normocephalic Eye exam: PRESENT: conjunctiva pink, EOMI, PERRLA Ear exam: PRESENT: normal external ear exam Mouth exam: PRESENT: moist Neck exam: PRESENT: full ROM. ABSENT: JVD, lymphadenopathy, tenderness Respiratory exam: PRESENT: clear to auscultation anthony Cardiovascular exam: PRESENT: RRR. ABSENT: diastolic murmur, systolic murmur GI/Abdominal exam: PRESENT: normal bowel sounds, soft. ABSENT: tenderness Extremities exam: ABSENT: full ROM, pedal edema Musculoskeletal exam: PRESENT: ambulatory Neurological exam: PRESENT: alert, awake Skin exam: PRESENT: intact, normal color Results Laboratory Results: 12/26/17 04:32 12/26/17 04:32 12/25/17 12/26/17 12/26/17 06:59 04:32 04:32 WBC 8.3 RBC 3.80 Hgb 11.4 L Hct 34.0 L MCV 90 MCH 30.0 MCHC 33.5 RDW 14.1 H Plt Count 271 Seg Neutrophils % 76.4 Lymphocytes % 10.4 L Monocytes % 6.7 Eosinophils % 6.3 H Basophils % 0.2 Absolute Neutrophils 6.4 Absolute Lymphocytes 0.9 Absolute Monocytes 0.6 Absolute Eosinophils 0.5 Absolute Basophils 0.0 Sodium 135.6 L 138.6 Potassium 3.3 L 4.3 D Chloride 101 103 Carbon Dioxide 28 26 Anion Gap 7 10 BUN 16 11 Creatinine 0.62 0.72 Est GFR ( Amer) > 60 > 60 Est GFR (Non-Af Amer) > 60 > 60 Glucose 135 H 132 H Calcium 7.7 L 8.3 L Magnesium 1.9 1.7 12/22/17 05:43 NT-Pro-B Natriuret Pep 5000 H Impressions: Chest X-Ray 12/19/17 11:01 IMPRESSION: COPD. AIRSPACE DISEASE IN THE LEFT LUNG APEX LIKELY DUE TO PNEUMONIA. THIS MAY BE BACTERIAL BUT SINCE THIS IS IN AN APICAL LOCATION, TUBERCULOSIS IS A POSSIBLE CONSIDERATION. Chest CT 12/25/17 00:00 IMPRESSION: Left upper lobe pneumonia. Small left pleural effusion. Assessment & Plan - Diagnosis (1) Encephalopathy acute Is this a current diagnosis for this admission?: No Plan: Patient suffers from dementia (2) Hypotension Qualifiers: Hypotension type: unspecified hypotension type Qualified Code(s): I95.9 - Hypotension, unspecified Is this a current diagnosis for this admission?: Yes Plan: Resolved (3) Left upper lobe pneumonia Qualifiers: Pneumonia type: due to unspecified organism Qualified Code(s): J18.1 - Lobar pneumonia, unspecified organism Is this a current diagnosis for this admission?: Yes Plan: Noted ID recommendations. Awaiting AFB culture results. CT scan of the chest noted. White blood cell count trending downward after increasing zosyn (4) Sepsis Qualifiers: Sepsis type: sepsis due to unspecified organism Qualified Code(s): A41.9 - Sepsis, unspecified organism Is this a current diagnosis for this admission?: Yes Plan: Resolved (5) Emphysema lung Qualifiers: Emphysema type: unspecified Qualified Code(s): J43.9 - Emphysema, unspecified Is this a current diagnosis for this admission?: Yes Plan: Continue nebulizer treatment (6) Pulmonary nodule Is this a current diagnosis for this admission?: Yes Plan: Can be followed-up as outpatient (7) Hypokalemia Is this a current diagnosis for this admission?: Yes Plan: Corrected - Time Time Spent with patient: 15-24 minutes Medications reviewed and adjusted accordingly: Yes Anticipated discharge: SNF Within: within 72 hours - Inpatient Certification Based on my medical assessment, after consideration of the patient's comorbidities, presenting symptoms, or acuity I expect that the services needed warrant INPATIENT care.: Yes I certify that my determination is in accordance with my understanding of Medicare's requirements for reasonable and necessary INPATIENT services [42 CFR 412.3e].: Yes Medical Necessity: Need Close Monitoring Due to Risk of Patient Decompensation, Need for IV Antibiotics
[2017-12-27] MEDS: IPRATROPIUM/ALBUTEROL 0.5-2.5 MG/3 ML AMPUL NEB SCH ×4 (01:24→20:41)
[2017-12-27] MEDS: PIPERACILLIN SODIUM/TAZOBACTAM 4.5 GM in NORMAL SALINE 100 ML IV SCH ×4 (01:54→17:21)
[2017-12-27] MEDS: HEPARIN SOD (PORCINE) 5,000 UNIT/ML 1 ML SYRINGE SUBCUT SCH ×3 (06:05→22:08)
[2017-12-27 06:23] LABS: ABSOLUTE EOSINOPHILS # (AUTO) 1.1 10^3/uL (0.0-0.6); ABSOLUTE LYMPHOCYTES (AUTO) 1.3 10^3/uL (0.5-4.7); ABSOLUTE MONOCYTES (AUTO) 0.6 10^3/uL (0.1-1.4); ABSOLUTE NEUT (AUTO) 5.6 10^3/uL (1.7-8.2); BASOPHILS % (AUTO) 0.4 % (0-2); EOSINOPHILS % (AUTO) 12.5 % (0-6); HEMATOCRIT 35.5 % (36.0-47.0); HEMOGLOBIN 11.8 g/dL (12.0-15.5); LYMPHOCYTES % (AUTO) 15.4 % (13-45); MEAN CORPUSCULAR HEMOGLOBIN 29.9 pg (27.0-33.4); MEAN CORPUSCULAR HGB CONC 33.3 g/dL (32.0-36.0); MEAN CORPUSCULAR VOLUME 90 fl (80-97); MONOCYTES % (AUTO) 7.2 % (3-13); PLATELET COUNT 269 10^3/uL (150-450); RED BLOOD COUNT 3.96 10^6/uL (3.72-5.28); RED CELL DISTRIBUTION WIDTH 14.1 % (11.5-14.0); SEGMENTED NEUTROPHILS % (AUTO) 64.5 % (42-78); TOTAL CELLS COUNTED % (AUTO) 100 %; WHITE BLOOD COUNT 8.7 10^3/uL (4.0-10.5)
[2017-12-27 06:42] LABS: ALANINE AMINOTRANSFERASE 57 U/L (9-52); ALBUMIN 2.9 g/dL (3.5-5.0); ALKALINE PHOSPHATASE 108 U/L (38-126); ANION GAP 10 (5-19); ASPARTATE AMINO TRANSFERASE 26 U/L (14-36); BILIRUBIN,DIRECT 0.2 mg/dL (0.0-0.4); BILIRUBIN,TOTAL 0.5 mg/dL (0.2-1.3); BLOOD UREA NITROGEN 11 mg/dL (7-20); CALCIUM 8.9 mg/dL (8.4-10.2); CARBON DIOXIDE 23 mmol/L (22-30); CHLORIDE 102 mmol/L (98-107); GLUCOSE 134 mg/dL (75-110); POTASSIUM 4.6 mmol/L (3.6-5.0); SODIUM 135.3 mmol/L (137-145)
[2017-12-27] MEDS: TRIAMTERENE/HYDROCHLOROTHIAZIDE 37.5-25 MG TABLET PO SCH (09:36)
[2017-12-27] MEDS: CARVEDILOL 6.25 MG TABLET PO SCH ×2 (09:36→22:08)
--- NOTE | 2017-12-27 17:47 | PDOC PROGRESS REPORT ---
Subjective Progress Note for:: 12/27/17 Subjective:: Unable to obtain due to mental status Review of system Unable to obtain due to mental status All laboratories and significant diagnostics have been reviewed Reason For Visit: SEPSIS ARF PNEUMONIA Physical Exam Vital Signs: Temp Pulse Resp BP Pulse Ox 99 F 95 15 130/81 H 100 12/27/17 03:00 12/27/17 03:00 12/27/17 03:00 12/27/17 03:00 12/27/17 03:00 Pulse Oximeter Continuous Start: 12/19/17 13: 15 Freq: RTQ4 Status: Complete Document 12/22/17 04:00 STI (Rec: 12/22/17 04:00 STI [email or web address]) Pulse Oximetry Assessment Oxygen Saturation (92-100) 95 Oxygen Flow Rate (L/min) 2.0 Oxygen Delivery Method Nasal Cannula Fraction of Inspired Oxygen (FIO2) 28 Equipment Usage Equipment in Use Continuous SpO2 Machine # 7 Intake & Output 12/26/17 12/27/17 12/28/17 06:59 06:59 06:59 Intake Total 1295 887 Output Total 200 Balance 1095 887 Weight 50 kg 51.2 kg General appearance: PRESENT: cooperative, thin Head exam: PRESENT: atraumatic, normocephalic Eye exam: PRESENT: conjunctiva pink, EOMI, PERRLA Ear exam: PRESENT: normal external ear exam Mouth exam: PRESENT: moist Neck exam: PRESENT: full ROM. ABSENT: JVD, lymphadenopathy, tenderness Respiratory exam: PRESENT: clear to auscultation anthony Cardiovascular exam: PRESENT: RRR. ABSENT: diastolic murmur, systolic murmur GI/Abdominal exam: PRESENT: normal bowel sounds, soft. ABSENT: tenderness Extremities exam: PRESENT: full ROM. ABSENT: pedal edema Musculoskeletal exam: PRESENT: ambulatory Neurological exam: PRESENT: alert, awake. ABSENT: oriented to person, oriented to place, oriented to time, oriented to situation Psychiatric exam: PRESENT: depressed Skin exam: PRESENT: normal color Results Laboratory Results: 12/27/17 06:01 12/27/17 06:01 12/26/17 12/27/17 12/27/17 16:33 06:01 06:01 WBC 8.7 RBC 3.96 Hgb 11.8 L Hct 35.5 L MCV 90 MCH 29.9 MCHC 33.3 RDW 14.1 H Plt Count 269 Seg Neutrophils % 64.5 Lymphocytes % 15.4 Monocytes % 7.2 Eosinophils % 12.5 H Basophils % 0.4 Absolute Neutrophils 5.6 Absolute Lymphocytes 1.3 Absolute Monocytes 0.6 Absolute Eosinophils 1.1 H Absolute Basophils 0.0 Sodium 135.3 L Potassium 4.6 Chloride 102 Carbon Dioxide 23 Anion Gap 10 BUN 11 Creatinine 0.77 Est GFR ( Amer) > 60 Est GFR (Non-Af Amer) > 60 Glucose 134 H Calcium 8.9 Magnesium 1.7 Total Bilirubin 0.5 AST 26 ALT 57 H Alkaline Phosphatase 108 Total Protein 6.0 L Albumin 2.9 L 12/22/17 05:43 NT-Pro-B Natriuret Pep 5000 H Impressions: Chest X-Ray 12/19/17 11:01 IMPRESSION: COPD. AIRSPACE DISEASE IN THE LEFT LUNG APEX LIKELY DUE TO PNEUMONIA. THIS MAY BE BACTERIAL BUT SINCE THIS IS IN AN APICAL LOCATION, TUBERCULOSIS IS A POSSIBLE CONSIDERATION. Chest CT 12/25/17 00:00 IMPRESSION: Left upper lobe pneumonia. Small left pleural effusion. Assessment & Plan - Diagnosis (1) Encephalopathy acute Is this a current diagnosis for this admission?: No Plan: Patient suffers from dementia (2) Hypotension Qualifiers: Hypotension type: unspecified hypotension type Qualified Code(s): I95.9 - Hypotension, unspecified Is this a current diagnosis for this admission?: Yes Plan: Resolved. Due to sepsis (3) Left upper lobe pneumonia Qualifiers: Pneumonia type: due to unspecified organism Qualified Code(s): J18.1 - Lobar pneumonia, unspecified organism Is this a current diagnosis for this admission?: Yes Plan: Noted ID recommendations. Awaiting AFB culture results. CT scan of the chest noted. White blood cell count trending downward after increasing zosyn and to continue. Order chest x-ray to see if any improvement (4) Sepsis Qualifiers: Sepsis type: sepsis due to unspecified organism Qualified Code(s): A41.9 - Sepsis, unspecified organism Is this a current diagnosis for this admission?: Yes Plan: Sepsis with hypotension present on arrival. Resolved (5) Emphysema lung Qualifiers: Emphysema type: unspecified Qualified Code(s): J43.9 - Emphysema, unspecified Is this a current diagnosis for this admission?: Yes Plan: Continue nebulizer treatment (6) Pulmonary nodule Is this a current diagnosis for this admission?: Yes Plan: Can be followed-up as outpatient (7) Hypokalemia Is this a current diagnosis for this admission?: Yes Plan: Corrected - Time Time Spent with patient: 15-24 minutes Medications reviewed and adjusted accordingly: Yes Anticipated discharge: Home with Homehealth Within: within 72 hours - Inpatient Certification Based on my medical assessment, after consideration of the patient's comorbidities, presenting symptoms, or acuity I expect that the services needed warrant INPATIENT care.: Yes I certify that my determination is in accordance with my understanding of Medicare's requirements for reasonable and necessary INPATIENT services [42 CFR 412.3e].: Yes Medical Necessity: Need Close Monitoring Due to Risk of Patient Decompensation, Need for IV Antibiotics
[2017-12-27] MEDS: CLONAZEPAM 1 MG TABLET PO SCH (22:08)
[2017-12-28] MEDS: PIPERACILLIN SODIUM/TAZOBACTAM 4.5 GM in NORMAL SALINE 100 ML IV SCH ×3 (01:01→11:27)
[2017-12-28] MEDS: IPRATROPIUM/ALBUTEROL 0.5-2.5 MG/3 ML AMPUL NEB SCH ×4 (02:06→20:45)
[2017-12-28] MEDS: HEPARIN SOD (PORCINE) 5,000 UNIT/ML 1 ML SYRINGE SUBCUT SCH ×3 (05:45→21:15)
--- NOTE | 2017-12-28 08:00 | RADIOLOGY REPORT (SQ) ---
EXAM DESCRIPTION: CHEST SINGLE VIEW COMPLETED DATE/TIME: 12/28/2017 7:51 am REASON FOR STUDY: follow up COMPARISON: Chest films 07/02/2014, 08/20/2017, 12/25/2017 CT chest 12/25/2017 EXAM PARAMETERS: NUMBER OF VIEWS: One view. TECHNIQUE: Single frontal radiographic view of the chest acquired. RADIATION DOSE: NA LIMITATIONS: None. FINDINGS: LUNGS AND PLEURA: Dense consolidation at the left lung apex persists, similar compared to 12/25/2017 and 12/19/2017. This is worrisome for atypical pneumonia or mycobacterial infection. There is consolidation in the lateral left lung base atelectasis versus pneumonia. Remainder of the lungs are hyperinflated and hyperlucent from obstructive disease. MEDIASTINUM AND HILAR STRUCTURES: No masses. Contour normal. HEART AND VASCULAR STRUCTURES: Heart normal in size. Normal vasculature. BONES: No acute findings. HARDWARE: None in the chest. OTHER: No other significant finding. IMPRESSION: Persistent airspace disease in the left lung apex and lateral left lung base. TECHNICAL DOCUMENTATION: JOB ID: [id number] [employer]- All Rights Reserved Reading location - IP/workstation name: [email or web address]
[2017-12-28] MEDS: CARVEDILOL 6.25 MG TABLET PO SCH ×2 (10:10→21:14)
[2017-12-28] MEDS: TRIAMTERENE/HYDROCHLOROTHIAZIDE 37.5-25 MG TABLET PO SCH (10:11)
--- NOTE | 2017-12-28 15:47 | PDOC PROGRESS REPORT ---
Subjective Progress Note for:: 12/28/17 Subjective:: Unable to obtain due to mental status Review of system Unable to obtain due to mental status All laboratories and significant diagnostics have been reviewed Reason For Visit: SEPSIS ARF PNEUMONIA Physical Exam Vital Signs: Temp Pulse Resp BP Pulse Ox 97.5 F 98 16 157/82 H 96 12/27/17 23:58 12/28/17 02:06 12/28/17 02:06 12/27/17 23:58 12/28/17 02:06 Pulse Oximeter Continuous Start: 12/19/17 13: 15 Freq: RTQ4 Status: Complete Document 12/22/17 04:00 STI (Rec: 12/22/17 04:00 STI [email or web address]) Pulse Oximetry Assessment Oxygen Saturation (92-100) 95 Oxygen Flow Rate (L/min) 2.0 Oxygen Delivery Method Nasal Cannula Fraction of Inspired Oxygen (FIO2) 28 Equipment Usage Equipment in Use Continuous SpO2 Machine # 7 Intake & Output 12/27/17 12/28/17 12/29/17 06:59 06:59 06:59 Intake Total 887 864 Balance 887 864 Weight 51.2 kg 50.7 kg General appearance: PRESENT: cooperative, thin Head exam: PRESENT: atraumatic, normocephalic Eye exam: PRESENT: conjunctiva pink, EOMI, PERRLA Ear exam: PRESENT: normal external ear exam Mouth exam: PRESENT: moist Neck exam: PRESENT: full ROM. ABSENT: JVD, lymphadenopathy, tenderness Respiratory exam: PRESENT: rhonchi, other - In upper airways Cardiovascular exam: PRESENT: RRR. ABSENT: diastolic murmur, systolic murmur Vascular exam: PRESENT: normal capillary refill GI/Abdominal exam: PRESENT: normal bowel sounds, soft. ABSENT: tenderness Extremities exam: PRESENT: full ROM. ABSENT: pedal edema Musculoskeletal exam: PRESENT: ambulatory Neurological exam: PRESENT: alert, awake, oriented to place Skin exam: PRESENT: normal color Results Laboratory Results: 12/27/17 06:01 12/27/17 06:01 12/25/17 11:10 Sputum AFB Smear Concentration - Final 12/25/17 11:10 Sputum Acid Fast Bacilli Smear - Final 12/24/17 08:25 Sputum AFB Smear Concentration - Final 12/24/17 08:25 Sputum Acid Fast Bacilli Smear - Final 12/22/17 05:43 NT-Pro-B Natriuret Pep 5000 H Impressions: Chest X-Ray 12/19/17 11:01 IMPRESSION: COPD. AIRSPACE DISEASE IN THE LEFT LUNG APEX LIKELY DUE TO PNEUMONIA. THIS MAY BE BACTERIAL BUT SINCE THIS IS IN AN APICAL LOCATION, TUBERCULOSIS IS A POSSIBLE CONSIDERATION. Chest CT 12/25/17 00:00 IMPRESSION: Left upper lobe pneumonia. Small left pleural effusion. Assessment & Plan - Diagnosis (1) Hypotension Qualifiers: Hypotension type: unspecified hypotension type Qualified Code(s): I95.9 - Hypotension, unspecified Is this a current diagnosis for this admission?: Yes Plan: Resolved. Due to sepsis (2) Left upper lobe pneumonia Qualifiers: Pneumonia type: due to unspecified organism Qualified Code(s): J18.1 - Lobar pneumonia, unspecified organism Is this a current diagnosis for this admission?: Yes Plan: Persisting. One was a count trended down and will discontinue Zosyn. 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 TB cultures negative. Will consult Dr. Smiley. Will start Zithromax and will await input for further empiric treatment if deemed needed (3) Sepsis Qualifiers: Sepsis type: sepsis due to unspecified organism Qualified Code(s): A41.9 - Sepsis, unspecified organism Is this a current diagnosis for this admission?: Yes Plan: Sepsis with hypotension present on arrival. Resolved (4) Emphysema lung Qualifiers: Emphysema type: unspecified Qualified Code(s): J43.9 - Emphysema, unspecified Is this a current diagnosis for this admission?: Yes Plan: Continue nebulizer treatment (5) Pulmonary nodule Is this a current diagnosis for this admission?: Yes Plan: Can be followed-up as outpatient (6) Hypokalemia Is this a current diagnosis for this admission?: Yes Plan: Corrected (7) Severe protein-calorie malnutrition Is this a current diagnosis for this admission?: Yes Plan: Dementia also major contributor (8) Dementia Qualifiers: Dementia behavioral disturbance: with behavioral disturbance Is this a current diagnosis for this admission?: Yes Plan: Will add Zyprexa and hopefully will improve appetite - Time Time Spent with patient: 15-24 minutes Medications reviewed and adjusted accordingly: Yes Anticipated discharge: Home with Homehealth Within: within 48 hours - Inpatient Certification Based on my medical assessment, after consideration of the patient's comorbidities, presenting symptoms, or acuity I expect that the services needed warrant INPATIENT care.: Yes I certify that my determination is in accordance with my understanding of Medicare's requirements for reasonable and necessary INPATIENT services [42 CFR 412.3e].: Yes Medical Necessity: Need Close Monitoring Due to Risk of Patient Decompensation
[2017-12-28] MEDS ORDERED: OLANZAPINE 2.5 MG TABLET PO ONE (17:00)
[2017-12-28] MEDS ORDERED: PIPERACILLIN SODIUM/TAZOBACTAM 3.375 GM in NORMAL SALINE 100 ML IV SCH (18:00)
[2017-12-28] MEDS ORDERED: PIPERACILLIN SODIUM/TAZOBACTAM 4.5 GM in NORMAL SALINE 100 ML IV SCH (18:00)
[2017-12-28] MEDS: CLONAZEPAM 1 MG TABLET PO SCH (21:13)
[2017-12-29] MEDS: IPRATROPIUM/ALBUTEROL 0.5-2.5 MG/3 ML AMPUL NEB SCH ×4 (01:59→20:53)
[2017-12-29] MEDS: HEPARIN SOD (PORCINE) 5,000 UNIT/ML 1 ML SYRINGE SUBCUT SCH ×3 (05:10→21:35)
[2017-12-29] MEDS: AZITHROMYCIN 250 MG TABLET PO SCH (10:52)
[2017-12-29] MEDS: CARVEDILOL 6.25 MG TABLET PO SCH ×2 (10:52→21:36)
[2017-12-29] MEDS: OLANZAPINE 2.5 MG TABLET PO SCH (10:53)
[2017-12-29] MEDS: TRIAMTERENE/HYDROCHLOROTHIAZIDE 37.5-25 MG TABLET PO SCH (10:53)
--- NOTE | 2017-12-29 14:06 | PDOC PROGRESS REPORT ---
Subjective Progress Note for:: 12/29/17 Subjective:: Unable to obtain due to mental status Review of system Unable to obtain due to mental status All laboratories and significant diagnostics have been reviewed Reason For Visit: SEPSIS ARF PNEUMONIA Physical Exam Vital Signs: Temp Pulse Resp BP Pulse Ox 98.8 F 109 H 16 135/81 H 96 12/29/17 03:45 12/29/17 03:45 12/29/17 03:45 12/29/17 03:45 12/29/17 03:45 Pulse Oximeter Continuous Start: 12/19/17 13: 15 Freq: RTQ4 Status: Complete Document 12/22/17 04:00 STI (Rec: 12/22/17 04:00 STI [email or web address]) Pulse Oximetry Assessment Oxygen Saturation (92-100) 95 Oxygen Flow Rate (L/min) 2.0 Oxygen Delivery Method Nasal Cannula Fraction of Inspired Oxygen (FIO2) 28 Equipment Usage Equipment in Use Continuous SpO2 Machine # 7 Intake & Output 12/27/17 12/28/17 12/29/17 06:59 06:59 06:59 Intake Total 887 864 250 Output Total 50 Balance 887 864 200 Weight 51.2 kg 50.7 kg 48.4 kg General appearance: PRESENT: cooperative, thin Head exam: PRESENT: atraumatic, normocephalic Eye exam: PRESENT: conjunctiva pink, EOMI, PERRLA Ear exam: PRESENT: normal external ear exam Mouth exam: PRESENT: moist Neck exam: PRESENT: full ROM. ABSENT: JVD, lymphadenopathy, tenderness Respiratory exam: PRESENT: clear to auscultation anthony Cardiovascular exam: PRESENT: RRR. ABSENT: diastolic murmur, systolic murmur Vascular exam: PRESENT: normal capillary refill GI/Abdominal exam: PRESENT: normal bowel sounds, soft. ABSENT: tenderness Extremities exam: PRESENT: full ROM. ABSENT: pedal edema Musculoskeletal exam: PRESENT: ambulatory Neurological exam: PRESENT: alert, awake, oriented to person, oriented to place , oriented to time, oriented to situation, CN II-XII grossly intact Psychiatric exam: PRESENT: appropriate affect, normal mood Skin exam: PRESENT: intact, normal color Results Laboratory Results: 12/27/17 06:01 12/27/17 06:01 12/22/17 05:43 NT-Pro-B Natriuret Pep 5000 H Impressions: Chest CT 12/25/17 00:00 IMPRESSION: Left upper lobe pneumonia. Small left pleural effusion. Chest X-Ray 12/28/17 00:00 IMPRESSION: Persistent airspace disease in the left lung apex and lateral left lung base. Assessment & Plan - Diagnosis (1) Hypotension Qualifiers: Hypotension type: unspecified hypotension type Qualified Code(s): I95.9 - Hypotension, unspecified Is this a current diagnosis for this admission?: Yes Plan: Resolved. 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 Awaiting for Dr Smiley to call back. Off zosyn. Added zithromax (3) Sepsis Qualifiers: Sepsis type: sepsis due to unspecified organism Qualified Code(s): A41.9 - Sepsis, unspecified organism Is this a current diagnosis for this admission?: Yes Plan: Sepsis with hypotension present on arrival due to pneumonic process. Resolved (4) Emphysema lung Qualifiers: Emphysema type: unspecified Qualified Code(s): J43.9 - Emphysema, unspecified Is this a current diagnosis for this admission?: Yes Plan: Continue nebulizer treatment as needed (5) Pulmonary nodule Is this a current diagnosis for this admission?: Yes Plan: Can be followed-up as outpatient (6) Hypokalemia Is this a current diagnosis for this admission?: Yes Plan: Corrected (7) Severe protein-calorie malnutrition Is this a current diagnosis for this admission?: Yes Plan: Dementia also major contributor (8) Dementia Qualifiers: Dementia behavioral disturbance: with behavioral disturbance Is this a current diagnosis for this admission?: Yes Plan: Has been informed by case management that patient is on will like for patient to go back. Plans at the present time for her to go home with home health. Hold back is the management of persistent left upper lobe infiltrate which likely relate to an atypical mycobacteria. Try to get hold of patient's son but no answer. Patient will be downgraded. - Time Time Spent with patient: 15-24 minutes Medications reviewed and adjusted accordingly: Yes Anticipated discharge: Home with Homehealth Within: within 48 hours - Inpatient Certification Based on my medical assessment, after consideration of the patient's comorbidities, presenting symptoms, or acuity I expect that the services needed warrant INPATIENT care.: Yes I certify that my determination is in accordance with my understanding of Medicare's requirements for reasonable and necessary INPATIENT services [42 CFR 412.3e].: Yes Medical Necessity: Need Close Monitoring Due to Risk of Patient Decompensation
[2017-12-29] MEDS: CLONAZEPAM 1 MG TABLET PO SCH (21:36)
[2017-12-30] MEDS: IPRATROPIUM/ALBUTEROL 0.5-2.5 MG/3 ML AMPUL NEB SCH ×3 (04:26→13:49)
[2017-12-30] MEDS: HEPARIN SOD (PORCINE) 5,000 UNIT/ML 1 ML SYRINGE SUBCUT SCH (05:33)
[2017-12-30] MEDS ORDERED: CARVEDILOL 3.125 MG TABLET PO SCH (10:00)
[2017-12-30] MEDS: AZITHROMYCIN 250 MG TABLET PO SCH (10:02)
[2017-12-30] MEDS: OLANZAPINE 2.5 MG TABLET PO SCH (10:02)
[2017-12-30] MEDS: TRIAMTERENE/HYDROCHLOROTHIAZIDE 37.5-25 MG TABLET PO SCH (10:03)
[2017-12-30 12:44] VITALS: BP 110/67
--- NOTE | 2017-12-30 15:07 | PDOC DISCHARGE SUMMARY ---
General - Admit/Disc Date/PCP Admission Date/Primary Care Provider: 12/19/17 15:50 Discharge Date: 12/30/17 - Discharge Diagnosis (1) Non-tuberculous bronchiectasis Is this a current diagnosis for this admission?: Yes (2) Left upper lobe pneumonia Is this a current diagnosis for this admission?: Yes (3) Sepsis with hypotension Is this a current diagnosis for this admission?: Yes (4) Emphysema lung Is this a current diagnosis for this admission?: Yes (5) Pulmonary nodule Is this a current diagnosis for this admission?: Yes (6) Hypokalemia Is this a current diagnosis for this admission?: Yes (7) Severe protein-calorie malnutrition Is this a current diagnosis for this admission?: Yes (8) Dementia Is this a current diagnosis for this admission?: Yes - Additional Information Resuscitation Status: Full Code Discharge Diet: As Tolerated Discharge Activity: Activity As Tolerated Prescriptions: Clonazepam [Klonopin 1 mg Tablet] 0.5 mg PO QHS #15 tablet Olanzapine [Zyprexa 2.5 mg Tablet] 2.5 mg PO DAILY #30 tablet Home Medications: Alendronate Sodium [Fosamax] 70 mg PO WE@1000 12/19/17 Carvedilol [Coreg 6.25 mg Tablet] 6.25 mg PO Q12 12/19/17 Fluticasone/Vilanterol [Breo Ellipta 200-25 Mcg INH] 1 inh IH DAILY 12/19/17 Triamterene/Hydrochlorothiazid [Triamterene-Hctz 37.5-25 mg Tb] 1 tab PO DAILY 12/19/17 Clonazepam [Klonopin 1 mg Tablet] 0.5 mg PO QHS #15 tablet 12/30/17 Olanzapine [Zyprexa 2.5 mg Tablet] 2.5 mg PO DAILY #30 tablet 12/30/17 History of Present Illness History of Present Illness: ELIZA ALSTON is a 77 year old female with a past medical history of COPD, presents with 10-14 days of intermittent fever, nonproductive cough, confusion and shortness of breath. She was brought to the emergency room with confusion. At the time of evaluation in ED she was unable to provide history. Patient is chronically ill-appearing unable to speak intelligibly, awake and alert oriented 1. In the emergency room she was found to have hypotension and an infiltrate of the left apex complicated by a known lung nodule in the same location. She received albuterol and Atrovent, empiric antibiotic and was referred to the hospitalist for admission. Hospital Course Hospital Course: Patient was admitted under the hospitalist service. Hypotension responded to fluid resuscitation. It was deemed to be due to septic process. Patient was placed on isolation due to concerns of tuberculosis. PPD was negative. Serial AFB cultures and stains were ordered and so far had been negative. Patient leukocytosis improved after she was placed on Zosyn 4.5 g IV every 6 hours. Follow-up chest x-ray was obtained which showed persistence of left upper lobe infiltrate. We consulted Dr. Blancas (ID specialist) due to concern of dealing with nontuberculous mycobacteria. Recommendation was not to pursue any further investigation since may be detrimental due to patient's comorbidities. Patient was seen by a dietitian since severely malnourished. On admission there was a concern about encephalopathy, however it became quite evident that patient does suffer from advanced dementia. We discussed patient of presentation and management with her son who prefers for his mother to go home with home health assistance and is in agreement with recommendations. In summary patient presentation related to sepsis with hypotension due to nontuberculous bronchiectasis. She does have a pulmonary nodule which can be followed-up if deemed needed by her PCP. Recommend for patient to be treated conservatively and she may benefit from being transitioned to hospice. Physical Exam Vital Signs: Temp Pulse Resp BP Pulse Ox 97.6 F 102 H 16 124/80 96 12/30/17 03:37 12/30/17 03:37 12/30/17 03:37 12/30/17 03:37 12/30/17 03:37 Pulse Oximeter Continuous Start: 12/19/17 13: 15 Freq: RTQ4 Status: Complete Document 12/22/17 04:00 STI (Rec: 12/22/17 04:00 STI [email or web address]) Pulse Oximetry Assessment Oxygen Saturation (92-100) 95 Oxygen Flow Rate (L/min) 2.0 Oxygen Delivery Method Nasal Cannula Fraction of Inspired Oxygen (FIO2) 28 Equipment Usage Equipment in Use Continuous SpO2 Machine # 7 Intake & Output 12/29/17 12/30/17 12/31/17 06:59 06:59 06:59 Intake Total 250 657 Output Total 50 200 Balance 200 457 Weight 48.4 kg 48.6 kg General appearance: PRESENT: no acute distress, cooperative, thin Head exam: PRESENT: atraumatic, normocephalic Eye exam: PRESENT: conjunctiva pink, EOMI, PERRLA Ear exam: PRESENT: normal external ear exam Mouth exam: PRESENT: moist Neck exam: PRESENT: full ROM. ABSENT: JVD, lymphadenopathy, tenderness Respiratory exam: PRESENT: clear to auscultation anthony Cardiovascular exam: PRESENT: RRR. ABSENT: diastolic murmur, systolic murmur Vascular exam: PRESENT: normal capillary refill GI/Abdominal exam: PRESENT: normal bowel sounds, soft. ABSENT: tenderness Extremities exam: PRESENT: full ROM. ABSENT: tenderness Musculoskeletal exam: PRESENT: ambulatory Neurological exam: PRESENT: alert, awake. ABSENT: oriented to person, oriented to place, oriented to time, oriented to situation Skin exam: PRESENT: normal color Results Laboratory Results: 12/27/17 06:01 12/27/17 06:01 12/22/17 05:43 NT-Pro-B Natriuret Pep 5000 H Impressions: Chest CT 12/25/17 00:00 IMPRESSION: Left upper lobe pneumonia. Small left pleural effusion. Chest X-Ray 12/28/17 00:00 IMPRESSION: Persistent airspace disease in the left lung apex and lateral left lung base. Qualifiers - * PATEINT BEING DISCHARGED WITH ANY OF THE FOLLOWING DIAGNOSIS?: No
== END 2017-12-30 13:53 | disposition home health service (06) | DRG 871 ==
LOC: ER 10:50 → UNDOADMIN 15:50 → EH 15:50 → 3S 19:00
PROVIDERS: ADMIT Emergency Medicine; ATTEND Emergency Medicine
DX: A41.9 Sepsis, unspecified organism (principal); G93.40 Encephalopathy, unspecified; E43 Unspecified severe protein-calorie malnutrition; J18.1 Lobar pneumonia, unspecified organism; F03.91 Unspecified dementia, unspecified severity, with behavioral disturbance; Z68.1 Body mass index [BMI] 19.9 or less, adult; J47.9 Bronchiectasis, uncomplicated; J43.9 Emphysema, unspecified; I10 Essential (primary) hypertension; E87.6 Hypokalemia; Z87.891 Personal history of nicotine dependence
CPT/HCPCS: 36415; 71045; 71260; 80048; 80053; 80202; 81001; 82533; 82550; 82565; 82803; 83605; 83735; 83880; 84484; 85025; 85610; 86317; 86480; 86738; 87015; 87040; 87086; 87116; 87206; 93005; 93010; 94660; 94667; 94762; 94799; 96361; 96365; 99291; G8996-GN; G8997-GN; G8998-GN; J0692; J0696; J1644; J1720; J1956; J2543; J2920; J3370; J3475; J3490; J7030; J7060; J7620

== ENCOUNTER 2018-02-01 08:55 | Emergency (ER) | payer MEDICARE ==
[2018-02-01 09:28] LABS: ABSOLUTE BASOPHILS # (AUTO) 0.1 10^3/uL (0.0-0.2); ABSOLUTE LYMPHOCYTES (AUTO) 0.9 10^3/uL (0.5-4.7); ABSOLUTE MONOCYTES (AUTO) 0.7 10^3/uL (0.1-1.4); ABSOLUTE NEUT (AUTO) 8.4 10^3/uL (1.7-8.2); BASOPHILS % (AUTO) 0.7 % (0-2); EOSINOPHILS % (AUTO) 0.5 % (0-6); HEMATOCRIT 35.7 % (36.0-47.0); HEMOGLOBIN 12.1 g/dL (12.0-15.5); LYMPHOCYTES % (AUTO) 8.7 % (13-45); MEAN CORPUSCULAR HEMOGLOBIN 30.1 pg (27.0-33.4); MEAN CORPUSCULAR HGB CONC 33.7 g/dL (32.0-36.0); MEAN CORPUSCULAR VOLUME 89 fl (80-97); MONOCYTES % (AUTO) 6.9 % (3-13); PLATELET COUNT 217 10^3/uL (150-450); RED BLOOD COUNT 4.01 10^6/uL (3.72-5.28); RED CELL DISTRIBUTION WIDTH 14.4 % (11.5-14.0); SEGMENTED NEUTROPHILS % (AUTO) 83.2 % (42-78); TOTAL CELLS COUNTED % (AUTO) 100 %; WHITE BLOOD COUNT 10.1 10^3/uL (4.0-10.5)
[2018-02-01 09:49] LABS: ALANINE AMINOTRANSFERASE 25 U/L (9-52); ALBUMIN 3.2 g/dL (3.5-5.0); ALKALINE PHOSPHATASE 96 U/L (38-126); ANION GAP 13 (5-19); ASPARTATE AMINO TRANSFERASE 36 U/L (14-36); BILIRUBIN,DIRECT 0.5 mg/dL (0.0-0.4); BILIRUBIN,TOTAL 0.6 mg/dL (0.2-1.3); BLOOD UREA NITROGEN 21 mg/dL (7-20); CALCIUM 8.6 mg/dL (8.4-10.2); CARBON DIOXIDE 31 mmol/L (22-30); CHLORIDE 93 mmol/L (98-107); CREATINE KINASE 54 U/L (30-135); GLUCOSE 144 mg/dL (75-110); POTASSIUM 3.5 mmol/L (3.6-5.0); SODIUM 137.4 mmol/L (137-145); TOTAL PROTEIN 6.7 g/dL (6.3-8.2)
--- NOTE | 2018-02-01 09:53 | RADIOLOGY REPORT (SQ) ---
EXAM DESCRIPTION: CHEST SINGLE VIEW COMPLETED DATE/TIME: 02/01/2018 9:42 am REASON FOR STUDY: sob COMPARISON: 12/28/2017 EXAM PARAMETERS: NUMBER OF VIEWS: One view. TECHNIQUE: Single frontal radiographic view of the chest acquired. RADIATION DOSE: NA LIMITATIONS: None. FINDINGS: LUNGS AND PLEURA: COPD. Resolution of previous noted left basilar pneumonia. Significant improvement in left upper lobe pneumonia with mild residual pleural-parenchymal changes. No new abn ormalities. No effusions. MEDIASTINUM AND HILAR STRUCTURES: No masses. Contour normal. HEART AND VASCULAR STRUCTURES: Heart normal in size. Normal vasculature. BONES: No acute findings. HARDWARE: None in the chest. OTHER: No other significant finding. IMPRESSION: 1. COPD. 2. Resolution of left basilar pneumonia with improvement in left upper lobe pneumonia. Mild residua l. No new abnormalities. TECHNICAL DOCUMENTATION: JOB ID: [id number] [employer]- All Rights Reserved Reading location - IP/workstation name: [email or web address]
--- NOTE | 2018-02-01 10:00 | ER Document Report ---
ED General - General Stated Complaint: ALTERED MENTAL STATUS Time Seen by Provider: 02/01/18 09:35 Mode of Arrival: Medic Information source: Emergency Med Personnel, [facility] Records Cannot obtain history due to: Altered mental status Notes: 77-year-old female with a history of COPD, hypertension, recent hospital admission for sepsis secondary to pneumonia in December 2017 presents via EMS from home with come concern for altered mental status. Patient is unable to provide history. Per nursing and EMS son reported that the patient has been "sick" for a couple of days. Son also reported that her confusion has worsened over the last few days. Upon arrival patient is found covered in feces. She is alert but only oriented to self and is basically nonverbal although she does attempt to answer questions. She does follow commands. TRAVEL OUTSIDE OF THE [place] IN LAST 30 DAYS: No - HPI Onset/Duration: Gradual Similar symptoms previously: Yes Recently seen / treated by doctor: Yes - Related Data Allergies/Adverse Reactions: No Known Allergies Allergy (Verified 12/19/17 11:21) Past Medical History - General Information source: [facility] Records Cannot obtain history due to: Dementia, Altered mental status - Social History Smoking Status: Unknown if Ever Smoked Frequency of alcohol use: None Drug Abuse: None Lives with: Family Family History: Reviewed & Not Pertinent, Other - Unobtainable - Past Medical History Cardiac Medical History: Reports: Hx Hypertension Pulmonary Medical History: Reports: Hx COPD Renal/ Medical History: Denies: Hx Peritoneal Dialysis Psychiatric Medical History: Denies: Hx Depression - Immunizations Hx Diphtheria, Pertussis, Tetanus Vaccination: Yes Hx Pneumococcal Vaccination: 10/11/00 Review of Systems - Review of Systems -: Yes ROS unobtainable due to patient's medical condition Physical Exam - Vital signs Vitals: Resp Pulse Ox 28 H 99 02/01/18 08:59 02/01/18 08:59 Interpretation: Normal - Notes Notes: PHYSICAL EXAMINATION: GENERAL: Patient appears dehydrated. She does not appear toxic. She is alert but nonverbal. She reports patient covered in feces upon arrival HEAD: Atraumatic, normocephalic. EYES: Pupils equal round and reactive to light, extraocular movements intact, conjunctiva are normal. ENT: Nares patent, oropharynx clear without exudates. Dry mucous membranes. NECK: Normal range of motion, supple without lymphadenopathy LUNGS: Breath sounds clear to auscultation bilaterally and equal. No wheezes rales or rhonchi. HEART: Regular rate and rhythm without murmurs ABDOMEN: Soft, nontender, nondistended abdomen. No guarding, no rebound. No masses appreciated. Female : deferred Musculoskeletal: Normal range of motion, no pitting or edema. No cyanosis. NEUROLOGICAL: Cranial nerves grossly intact. Normal speech, normal gait. Normal sensory, motor exams PSYCH: Normal mood, normal affect. SKIN: Warm, Dry, normal turgor, right hip stage I decubitus ulcer. Course - Re-evaluation Re-evalutation: Laboratory 02/01/18 02/01/18 02/01/18 08:22 08:22 08:22 WBC 10.1 RBC 4.01 Hgb 12.1 Hct 35.7 L MCV 89 MCH 30.1 MCHC 33.7 RDW 14.4 H Plt Count 217 Seg Neutrophils % 83.2 H Lymphocytes % 8.7 L Monocytes % 6.9 Eosinophils % 0.5 Basophils % 0.7 Absolute Neutrophils 8.4 H Absolute Lymphocytes 0.9 Absolute Monocytes 0.7 Absolute Eosinophils 0.0 Absolute Basophils 0.1 Sodium 137.4 Potassium 3.5 L Chloride 93 L Carbon Dioxide 31 H Anion Gap 13 BUN 21 H Creatinine 0.64 Est GFR ( Amer) > 60 Est GFR (Non-Af Amer) > 60 Glucose 144 H Lactic Acid Calcium 8.6 Total Bilirubin 0.6 Direct Bilirubin 0.5 H Neonat Total Bilirubin Not Reportable Neonat Direct Bilirubin Not Reportable Neonat Indirect Bili Not Reportable AST 36 ALT 25 Alkaline Phosphatase 96 Creatine Kinase 54 CK-MB (CK-2) 0.56 Troponin I 0.025 NT-Pro-B Natriuret Pep 2570 H Total Protein 6.7 Albumin 3.2 L Urine Color Urine Appearance Urine pH Ur Specific [place] Urine Protein Urine Glucose (UA) Urine Ketones Urine Blood Urine Nitrite Urine Bilirubin Urine Urobilinogen Ur Leukocyte Esterase Urine WBC (Auto) Urine RBC (Auto) Urine Mucus (Auto) Urine Ascorbic Acid 02/01/18 02/01/18 08:59 08:59 WBC RBC Hgb Hct MCV MCH MCHC RDW Plt Count Seg Neutrophils % Lymphocytes % Monocytes % Eosinophils % Basophils % Absolute Neutrophils Absolute Lymphocytes Absolute Monocytes Absolute Eosinophils Absolute Basophils Sodium Potassium Chloride Carbon Dioxide Anion Gap BUN Creatinine Est GFR ( Amer) Est GFR (Non-Af Amer) Glucose Lactic Acid 1.1 Calcium Total Bilirubin Direct Bilirubin Neonat Total Bilirubin Neonat Direct Bilirubin Neonat Indirect Bili AST ALT Alkaline Phosphatase Creatine Kinase CK-MB (CK-2) Troponin I NT-Pro-B Natriuret Pep Total Protein Albumin Urine Color YELLOW Urine Appearance CLEAR Urine pH 6.0 Ur Specific [place] 1.018 Urine Protein 100 H Urine Glucose (UA) 50 H Urine Ketones 20 H Urine Blood NEGATIVE Urine Nitrite NEGATIVE Urine Bilirubin NEGATIVE Urine Urobilinogen 4.0 H Ur Leukocyte Esterase NEGATIVE Urine WBC (Auto) 3 Urine RBC (Auto) 2 Urine Mucus (Auto) FEW Urine Ascorbic Acid 20 H Chest X-Ray 02/01/18 09:00 IMPRESSION: 1. COPD. 2. Resolution of left basilar pneumonia with improvement in left upper lobe pneumonia. Mild residual. No new abnormalities. Head CT 02/01/18 09:59 IMPRESSION: No intracranial pathology. EVIDENCE OF ACUTE STROKE: NO. Head MRI 02/01/18 11:49 IMPRESSION: No acute findings Extensive chronic small vessel white matter disease in the cerebral hemispheres and mid hugo with multiple basal ganglia chronic lacunar infarcts EVIDENCE OF ACUTE STROKE: NO. 02/01/18 10:23 77-year-old female with history of COPD and hypertension presents with altered mental status from home. Per the EMS son reports patient has been "sick" over the last few days. He also reported worsening confusion. Patient was seen by myself upon arrival. Vital signs were reviewed. Patient is afebrile, normotensive and not hypoxic. Patient does not appear toxic, she does appear dehydrated. She is in no acute distress. Previous medical records and nursing notes reviewed. Significant findings include dehydration. Patient has had improvement of her pneumonia on chest x-ray. CBC is without leukocytosis. CMP shows mildly low potassium likely secondary to patient's diarrhea. CT of the head showed no acute process. MRI of the head showed remote infarcts but no acute process. 02/01/18 11:52 Son is now at the bedside who reports that the patient has had a rapid decline in her mental status over the last few days. He states that she is usually alert and oriented 3. She does have a baseline speech impediment but can usually speak and express herself. He states that she does walk independently. She recently was placed on Levaquin and a Medrol Dosepak 2 weeks prior to arrival by her primary care physician. Medrol Dosepak was completed approximately 3 daily days ago and son initially thought this may be related to her confusion. He also states that patient has had diarrhea for the last few days as well. She has not been complaining about any pain to him. 02/01/18 15:45 Patient reevaluated and now awake and alert and answering questions. Son is still at the bedside and states that he is comfortable taking the patient home. He has lots of family close to him and he has hired a few private nurses to be with her during the day. He also states that patient has been essentially nonverbal for approximately 3 years when she was found to have a stroke. Patient is sitting up, drinking water and eating. - Vital Signs Vital signs: Temp Pulse Resp BP Pulse Ox 98.6 F 87 20 103/67 98 02/01/18 09:00 02/01/18 09:15 02/01/18 14:01 02/01/18 14:01 02/01/18 14:01 - Laboratory Result Diagrams: 02/01/18 08:22 02/01/18 08:22 Laboratory results interpreted by me: 02/01/18 02/01/18 02/01/18 08:22 08:22 08:22 Hct 35.7 L RDW 14.4 H Seg Neutrophils % 83.2 H Lymphocytes % 8.7 L Absolute Neutrophils 8.4 H Potassium 3.5 L Chloride 93 L Carbon Dioxide 31 H BUN 21 H Glucose 144 H Direct Bilirubin 0.5 H NT-Pro-B Natriuret Pep 2570 H Albumin 3.2 L Urine Protein Urine Glucose (UA) Urine Ketones Urine Urobilinogen Urine Ascorbic Acid 02/01/18 08:59 Hct RDW Seg Neutrophils % Lymphocytes % Absolute Neutrophils Potassium Chloride Carbon Dioxide BUN Glucose Direct Bilirubin NT-Pro-B Natriuret Pep Albumin Urine Protein 100 H Urine Glucose (UA) 50 H Urine Ketones 20 H Urine Urobilinogen 4.0 H Urine Ascorbic Acid 20 H - Diagnostic Test Radiology reviewed: Pending - EKG Interpretation by Me EKG shows normal: Sinus rhythm Rate: Normal Rhythm: NSR Discharge - Discharge Clinical Impression: Confusion Altered mental status, unspecified Qualifiers: Altered mental status type: transient alteration of awareness Qualified Code(s) : R40.4 - Transient alteration of awareness Condition: Fair Disposition: HOME, SELF-CARE Instructions: Altered Mental Status ([facility]) Additional Instructions: Follow up with your physician tomorrow for further care or return to the ED IMMEDIATELY if symptoms worsen or new concerns occur. If you cannot afford to follow up with your primary care physician a list of low cost clinics have been provided at the end of your discharge papers as well. Referrals: RODRIGUEZ ACOSTA MD [Primary Care Provider] - Follow up in 3-5 days
[2018-02-01] MEDS ORDERED: IPRATROPIUM/ALBUTEROL 0.5-2.5 MG/3 ML AMPUL NEB ONE (10:02)
[2018-02-01 10:09] LABS: CREATINE KINASE MB 0.56 ng/mL (<4.55); TROPONIN I 0.025 ng/mL
[2018-02-01 10:13] LABS: APPEARANCE,URINE CLEAR; BILIRUBIN,URINE NEGATIVE (NEGATIVE); COLOR,URINE YELLOW; GLUCOSE, URINE 50 mg/dL (NEGATIVE); KETONES,URINE 20 mg/dL (NEGATIVE); LEUKOCYTE ESTERASE,URINE NEGATIVE (NEGATIVE); NITRITE,URINE NEGATIVE (NEGATIVE); PROTEIN,URINE 100 mg/dL (NEGATIVE); URINE SPECIFIC GRAVITY 1.018
[2018-02-01] MEDS ORDERED: NORMAL SALINE 500 ML IV ONE (10:21)
--- NOTE | 2018-02-01 11:38 | RADIOLOGY REPORT (SQ) ---
EXAM DESCRIPTION: CT HEAD WITHOUT COMPLETED DATE/TIME: 02/01/2018 11:15 am REASON FOR STUDY: ams COMPARISON: None. TECHNIQUE: Axial images acquired through the brain without intravenous contrast. Images reviewed wi th bone, brain and subdural windows. Additional sagittal and coronal reconstructions were generated. Images stored on PACS. All CT scanners at this facility use dose modulation, iterative reconstruction, and/or weight based d osing when appropriate to reduce radiation dose to as low as reasonably achievable (ALARA). [facility]: Dose Right [facility]: CareDose [facility]: Dose Right [facility]: Teradose 4D [facility]: [place] RADIATION DOSE: CT Rad equipment meets quality standard of care and radiation dose reduction techniq ues were employed. CTDIvol: 53.2 mGy. DLP: 1097 mGy-cm. mGy. LIMITATIONS: None. FINDINGS: VENTRICLES: Prominent ventricles secondary to involutional atrophy. CEREBRUM: No masses. No hemorrhage. No midline shift. No evidence for acute infarction. Normal gra y/white matter differentiation. No areas of low density in the white matter. CEREBELLUM: No masses. No hemorrhage. No alteration of density. No evidence for acute infarction. EXTRAAXIAL SPACES: No fluid collections. No masses. ORBITS AND GLOBE: No intra- or extraconal masses. Normal contour of globe without masses. CALVARIUM: No fracture. PARANASAL SINUSES: No fluid or mucosal thickening. SOFT TISSUES: No mass or hematoma. OTHER: No other significant finding. IMPRESSION: No intracranial pathology. EVIDENCE OF ACUTE STROKE: NO. COMMENT: Quality ID # [id number]: Final reports with documentation of one or more dose reduction techniques (e.g., Automated exposure control, adjustment of the mA and/or kV according to patient size, use of iterative reconstruction technique) TECHNICAL DOCUMENTATION: JOB ID: [id number] [employer]- All Rights Reserved Reading location - IP/workstation name: [email or web address]
--- NOTE | 2018-02-01 13:36 | EKG REPORT ---
SEVERITY:- ABNORMAL ECG - SINUS RHYTHM BORDERLINE RIGHT AXIS DEVIATION CONSIDER LEFT VENTRICULAR HYPERTROPHY BORDERLINE PROLONGED QT INTERVAL : Confirmed by: Jame Boyd MD 01-Feb-2018 13:34:56
[2018-02-01] MEDS ORDERED: NORMAL SALINE 1000 ML 1,000 ML IV ONE (15:15)
--- NOTE | 2018-02-01 15:15 | RADIOLOGY REPORT (SQ) ---
EXAM DESCRIPTION: MRI HEAD WITHOUT COMPLETED DATE/TIME: 02/01/2018 3:01 pm REASON FOR STUDY: ams COMPARISON: CT brain 02/01/2018 MRI brain 07/08/2014 TECHNIQUE: Multiplanar imaging includes non-contrasted T1, T2, FLAIR, and diffusion with ADC map seq uences. Images stored on PACS. LIMITATIONS: None. FINDINGS: ANATOMY: No developmental anomalies. Normal vascular flow voids. Pituitary fossa normal. CSF SPACES: No hemorrhage or masses CEREBRUM: Extensive bifrontal and biparietal deep periventricular white matter small vessel ischemic change. Multiple old lacunar infarcts in the basal ganglia bilaterally. Diffusion-weighted imaging is negative for acute change. POSTERIOR FOSSA: Moderate pontine small vessel chronic ischemic change. No hemorrhage. No edema, mass es or mass effect. Internal auditory canals, cerebello-pontine angles, mastoids normal. DIFFUSION IMAGING: Negative for acute or sub-acute infarction. ORBITS: Bilateral cataract surgery. PARANASAL SINUSES: No fluid levels. Mucosa normal. OTHER: No other significant finding. IMPRESSION: No acute findings Extensive chronic small vessel white matter disease in the cerebral hemispheres and mid hugo with mul tiple basal ganglia chronic lacunar infarcts EVIDENCE OF ACUTE STROKE: NO. TECHNICAL DOCUMENTATION: JOB ID: [id number]- All Rights Reserved Reading location - IP/workstation name: [facility]
[2018-02-01 21:20] VITALS: BP 120/69
== END 2018-02-01 16:01 | disposition home or self-care (01) ==
LOC: ER 08:55
DX: R40.4 Transient alteration of awareness (principal); J44.9 Chronic obstructive pulmonary disease, unspecified; I10 Essential (primary) hypertension; F03.90 Unspecified dementia, unspecified severity, without behavioral disturbance, psychotic disturbance, mood disturbance, and anxiety; L89.211 Pressure ulcer of right hip, stage 1
CPT/HCPCS: 93005; 94640; 99285; 36415; 82553; 82550; 85025; 80053; 81001; 84484; 83605; 83880; 70551; 71045; 70450; 93010; J7040; A9270; J7620

== ENCOUNTER 2018-08-28 09:15 | Emergency (ER) | payer MEDICARE ==
[2018-08-28] MEDS ORDERED: NORMAL SALINE 500 ML IV ONE (10:00)
[2018-08-28 10:16] LABS: HEMATOCRIT 34.9 % (36.0-47.0); HEMOGLOBIN 11.6 g/dL (12.0-15.5); MEAN CORPUSCULAR HEMOGLOBIN 30.2 pg (27.0-33.4); MEAN CORPUSCULAR HGB CONC 33.1 g/dL (32.0-36.0); MEAN CORPUSCULAR VOLUME 91 fl (80-97); PLATELET COUNT 238 10^3/uL (150-450); RED BLOOD COUNT 3.82 10^6/uL (3.72-5.28); RED CELL DISTRIBUTION WIDTH 13.6 % (11.5-14.0); WHITE BLOOD COUNT 11.4 10^3/uL (4.0-10.5)
[2018-08-28 10:31] LABS: ALANINE AMINOTRANSFERASE 14 U/L (9-52); ALBUMIN 3.6 g/dL (3.5-5.0); ALKALINE PHOSPHATASE 79 U/L (38-126); ANION GAP 14 (5-19); ASPARTATE AMINO TRANSFERASE 22 U/L (14-36); BILIRUBIN,DIRECT 0.2 mg/dL (0.0-0.4); BILIRUBIN,TOTAL 0.8 mg/dL (0.2-1.3); BLOOD UREA NITROGEN 14 mg/dL (7-20); CALCIUM 9.3 mg/dL (8.4-10.2); CARBON DIOXIDE 29 mmol/L (22-30); CHLORIDE 98 mmol/L (98-107); CREATINE KINASE 78 U/L (30-135); GLUCOSE 142 mg/dL (75-110); POTASSIUM 3.4 mmol/L (3.6-5.0); SODIUM 140.7 mmol/L (137-145); TOTAL PROTEIN 6.9 g/dL (6.3-8.2)
--- NOTE | 2018-08-28 10:35 | ER Document Report ---
ED General - General Chief Complaint: Near Syncope Stated Complaint: SYNCOPAL EPISODE Time Seen by Provider: 08/28/18 09:27 TRAVEL OUTSIDE OF THE [place] IN LAST 30 DAYS: No - HPI Patient complains to provider of: Near syncope episode Notes: Patient coming in for a possible near syncopal episode. Patient has a history of stroke therefore HPI is somewhat limited. Patient is mostly nonverbal and able to convey yes and no answers and speak in short 4-3 word sentences. Please refer to the nursing note below Pt. presents to ED after having a near syncopal episode at home. Pt. son called EMS after pt. sat down for breakfast and got up to use the restroom and became light headed and nearly fainted so son lowered her to the floor. Pt. has a hx of stroke and COPD. Pt. is unable to have full conversation related to residual affects of previous stroke. Pt. noted to have positive orthos by EMS at the home , with a lying BP of 133/74, Sitting of 101/62 and standing of 90/58. EMS noted pt. had lost control of bowels and urine when she felt faint, but son states she is usually incontinent as she cannot make it to the restroom in a timely manor. Pt. is usually ambulatory. Pt. BGL was 154 by EMS. Upon arrival to ED, pt. is saying one- four words at a time. Pt. states she doesn't want to stay in the hospital. Pt. was cleaned by this RN and Rachel MORA and states she feels better now. Pt. is placed on the monitor. IV by EMS is a 20g in the left forearm. EMS provided pt. with 100mls of NS and states pt is a lot more alert now after the fluids. This RN attempted to get blood off line but was unsuccessful. Line flushes easily with NS flush. Pt. is breathing e/u, NAD. Pt. is Alert to person, place , time. Pt. satting 95 on room air, heart rate 79, and temp of 98.0. EMS states son is on the way. Pt. resting in bed with both side rails up, pt. in direct site of nurses station. Will continue to monitor. Upon reviewing this note with the patient patient does state he has feeling almost faint. When standing up. Patient shakes her head no to any new symptoms at this time patient is able to shake her head no to pain. Patient otherwise moving all 4 extremities at this time - Related Data Allergies/Adverse Reactions: No Known Allergies Allergy (Verified 08/28/18 09:46) Past Medical History - Social History Smoking Status: Unknown if Ever Smoked Chew tobacco use (# tins/day): No Frequency of alcohol use: None Drug Abuse: None Family History: Reviewed & Not Pertinent, Other - Unobtainable Patient has suicidal ideation: No Patient has homicidal ideation: No - Past Medical History Cardiac Medical History: Reports: Hx Hypertension Pulmonary Medical History: Reports: Hx COPD Renal/ Medical History: Denies: Hx Peritoneal Dialysis Psychiatric Medical History: Denies: Hx Depression - Immunizations Hx Diphtheria, Pertussis, Tetanus Vaccination: Yes Hx Pneumococcal Vaccination: 10/11/00 Review of Systems - Review of Systems Constitutional: No symptoms reported EENT: No symptoms reported Cardiovascular: Other - Near syncope Respiratory: No symptoms reported Gastrointestinal: No symptoms reported Genitourinary: No symptoms reported Female Genitourinary: No symptoms reported Musculoskeletal: No symptoms reported Skin: No symptoms reported Hematologic/Lymphatic: No symptoms reported Neurological/Psychological: No symptoms reported Physical Exam - Vital signs Vitals: BP 138/68 H 08/28/18 09:19 Interpretation: Normal - General General appearance: Appears well, Alert - HEENT Head: Normocephalic, Atraumatic Eyes: Normal Pupils: PERRL - Respiratory Respiratory status: No respiratory distress Chest status: Nontender Breath sounds: Normal Chest palpation: Normal - Cardiovascular Rhythm: Regular Heart sounds: Normal auscultation Murmur: No - Abdominal Inspection: Normal Distension: No distension Bowel sounds: Normal Tenderness: Nontender Organomegaly: No organomegaly - Back Back: Normal, Nontender - Extremities General upper extremity: Normal inspection, Nontender, Normal color, Normal ROM , Normal temperature General lower extremity: Normal inspection, Nontender, Normal color, Normal ROM , Normal temperature, Normal weight bearing. No: Olu's sign - Neurological Neuro grossly intact: Yes Cognition: Normal Orientation: AAOx4 Kun Coma Scale Eye Opening: Spontaneous Rochelle Coma Scale Verbal: Oriented Kun Coma Scale Motor: Obeys Commands Rochelle Coma Scale Total: 15 Speech: Normal Motor strength normal: LUE, RUE, LLE, RLE Sensory: Normal - Psychological Associated symptoms: Normal affect, Normal mood - Skin Skin Temperature: Warm Skin Moisture: Dry Skin Color: Normal Course - Re-evaluation Re-evalutation: 08/28/18 10:34 Patient was orthostatic upon EMS arrival. Patient otherwise is resting comfortably upon my evaluation. Possible orthostasis reason for the patient's near syncopal episode. Will check basic laboratory studies currently waiting for family to arrive to cooperate story. 08/28/18 14:42 Family at bedside states the patient was eating and heard a commotion in the kitchen found patient on all fours so the patient up in the past and patient the patient again became lightheaded dizzy. States patient does have a history of using her bladder and bowel herself is that she cannot make it to the bathroom in time. Does endorse patient had a less than normal oral intake the day prior to arrival. Patient does not have any change to her medications. Urinalysis was performed showing no signs of infection. Laboratory studies not show any critical pathology. Patient's orthostatics improved with a 500 cc of fluids. Able tolerate orals here. Discussed results with family members agree with discharge home this time. Patient will follow-up if symptoms worsen - Vital Signs Vital signs: Temp Pulse Resp BP Pulse Ox 98.0 F 20 156/79 H 96 08/28/18 09:32 08/28/18 11:09 08/28/18 11:15 08/28/18 11:13 - Laboratory Result Diagrams: 08/28/18 09:58 08/28/18 09:58 Laboratory results interpreted by me: 08/28/18 08/28/18 09:58 09:58 WBC 11.4 H Hgb 11.6 L Hct 34.9 L Seg Neuts % (Manual) 87 H Lymphocytes % (Manual) 3 L Abs Neuts (Manual) 9.9 H Abs Lymphs (Manual) 0.3 L Potassium 3.4 L Glucose 142 H Discharge - Discharge Clinical Impression: Orthostatic lightheadedness Condition: Good Disposition: HOME, SELF-CARE Instructions: Syncopal Episode ([facility]) Additional Instructions: Your evaluation today shows that you have orthostatic slight dehydration causing changes in her vital signs which can lead to lightheaded or dizziness. Your laboratory studies here chest x-ray did not show any critical pathology would highly recommend she follow-up with your primary care physician please make sure you are drinking plenty of fluids to stay well-hydrated. Return to the ER if any symptoms worsen.
[2018-08-28 10:42] LABS: CREATINE KINASE MB 2.69 ng/mL (<4.55); TROPONIN I 0.013 ng/mL
[2018-08-28 10:48] LABS: ABSOLUTE LYMPHOCYTES# (MANUAL) 0.3 10^3/uL (0.5-4.7); ABSOLUTE NEUTROPHILS# (MANUAL) 9.9 10^3/uL (1.7-8.2); BASOPHILS % (MANUAL) 0 % (0-2); EOSINOPHILS % (MANUAL) 1 % (0-6); LYMPHOCYTES % (MANUAL) 3 % (13-45); MONOCYTES % (MANUAL) 9 % (3-13); SEGMENTED NEUTROPHILS % (MAN) 87 % (42-78); TOTAL CELLS COUNTED 100
[2018-08-28 10:49] LABS: HYPOCHROMASIA SLIGHT; POLYCHROMASIA SLIGHT; TOXIC GRANULATION SLIGHT
[2018-08-28 10:53] LABS: PLATELET COMMENT ADEQUATE
--- NOTE | 2018-08-28 10:54 | EKG REPORT ---
SEVERITY:- ABNORMAL ECG - SINUS RHYTHM BORDERLINE RIGHT AXIS DEVIATION CONSIDER LEFT VENTRICULAR HYPERTROPHY PROLONGED QT INTERVAL : Confirmed by: Yinka Story 28-Aug-2018 10:53:08
[2018-08-28 11:39] LABS: APPEARANCE,URINE CLEAR; BILIRUBIN,URINE NEGATIVE (NEGATIVE); COLOR,URINE STRAW; GLUCOSE, URINE NEGATIVE (NEGATIVE); KETONES,URINE NEGATIVE (NEGATIVE); LEUKOCYTE ESTERASE,URINE NEGATIVE (NEGATIVE); NITRITE,URINE NEGATIVE (NEGATIVE); PROTEIN,URINE NEGATIVE (NEGATIVE); URINE SPECIFIC GRAVITY 1.008; UROBILINOGEN,URINE NEGATIVE mg/dL (<2.0)
[2018-08-28 14:09] VITALS: BP 169/94
== END 2018-08-28 14:20 | disposition home or self-care (01) ==
LOC: ER 09:15
DX: R55 Syncope and collapse (principal); J44.9 Chronic obstructive pulmonary disease, unspecified; R15.9 Full incontinence of feces; R32 Unspecified urinary incontinence; I69.30 Unspecified sequelae of cerebral infarction; I10 Essential (primary) hypertension
CPT/HCPCS: 93005; 99284; 96360; 51701; 36415; 82553; 82550; 85025; 80053; 81001; 84484; 93010; J7040

== ENCOUNTER 2018-09-13 11:54 | Observation (INO) | payer MEDICARE ==
[2018-09-13 13:19] LABS: ABSOLUTE BASOPHILS # (AUTO) 0.1 10^3/uL (0.0-0.2); ABSOLUTE EOSINOPHILS # (AUTO) 0.2 10^3/uL (0.0-0.6); ABSOLUTE LYMPHOCYTES (AUTO) 1.2 10^3/uL (0.5-4.7); ABSOLUTE MONOCYTES (AUTO) 0.8 10^3/uL (0.1-1.4); ABSOLUTE NEUT (AUTO) 6.1 10^3/uL (1.7-8.2); BASOPHILS % (AUTO) 0.6 % (0-2); EOSINOPHILS % (AUTO) 2.1 % (0-6); HEMATOCRIT 36.3 % (36.0-47.0); HEMOGLOBIN 12.2 g/dL (12.0-15.5); LYMPHOCYTES % (AUTO) 14.2 % (13-45); MEAN CORPUSCULAR HEMOGLOBIN 30.7 pg (27.0-33.4); MEAN CORPUSCULAR HGB CONC 33.7 g/dL (32.0-36.0); MEAN CORPUSCULAR VOLUME 91 fl (80-97); MONOCYTES % (AUTO) 9.2 % (3-13); PLATELET COUNT 248 10^3/uL (150-450); RED BLOOD COUNT 3.99 10^6/uL (3.72-5.28); RED CELL DISTRIBUTION WIDTH 13.5 % (11.5-14.0); SEGMENTED NEUTROPHILS % (AUTO) 73.9 % (42-78); TOTAL CELLS COUNTED % (AUTO) 100 %; WHITE BLOOD COUNT 8.2 10^3/uL (4.0-10.5)
[2018-09-13 13:27] LABS: ALANINE AMINOTRANSFERASE 15 U/L (9-52); ALBUMIN 3.8 g/dL (3.5-5.0); ALKALINE PHOSPHATASE 105 U/L (38-126); ANION GAP 12 (5-19); ASPARTATE AMINO TRANSFERASE 19 U/L (14-36); BILIRUBIN,DIRECT 0.3 mg/dL (0.0-0.4); BILIRUBIN,TOTAL 0.7 mg/dL (0.2-1.3); BLOOD UREA NITROGEN 19 mg/dL (7-20); CALCIUM 9.3 mg/dL (8.4-10.2); CARBON DIOXIDE 28 mmol/L (22-30); CHLORIDE 99 mmol/L (98-107); CREATINE KINASE 71 U/L (30-135); GLUCOSE 134 mg/dL (75-110); TOTAL PROTEIN 7.4 g/dL (6.3-8.2)
[2018-09-13 13:39] LABS: CREATINE KINASE MB 2.83 ng/mL (<4.55); TROPONIN I < 0.012 ng/mL
[2018-09-13 14:44] LABS: APPEARANCE,URINE CLEAR; BILIRUBIN,URINE NEGATIVE (NEGATIVE); COLOR,URINE STRAW; GLUCOSE, URINE NEGATIVE (NEGATIVE); KETONES,URINE NEGATIVE (NEGATIVE); LEUKOCYTE ESTERASE,URINE NEGATIVE (NEGATIVE); NITRITE,URINE NEGATIVE (NEGATIVE); PROTEIN,URINE NEGATIVE (NEGATIVE); UROBILINOGEN,URINE NEGATIVE mg/dL (<2.0)
--- NOTE | 2018-09-13 15:40 | RADIOLOGY REPORT (SQ) ---
EXAM DESCRIPTION: CT HEAD WITHOUT COMPLETED DATE/TIME: 09/13/2018 3:26 pm REASON FOR STUDY: syncope COMPARISON: None. TECHNIQUE: Axial images acquired through the brain without intravenous contrast. Images reviewed wi th bone, brain and subdural windows. Additional sagittal and coronal reconstructions were generated. Images stored on PACS. All CT scanners at this facility use dose modulation, iterative reconstruction, and/or weight based d osing when appropriate to reduce radiation dose to as low as reasonably achievable (ALARA). [facility]: Dose Right [facility]: CareDose [facility]: Dose Right [facility]: Teradose 4D [facility]: [place] RADIATION DOSE: CT Rad equipment meets quality standard of care and radiation dose reduction techniq ues were employed. CTDIvol: 53.2 - 55.2 mGy. DLP: 1387 mGy-cm. mGy. LIMITATIONS: None. FINDINGS: VENTRICLES: Normal size and contour. CEREBRUM: No masses. No hemorrhage. No midline shift. No evidence for acute infarction. There is e xtensive periventricular white matter hypodensity and moderate global volume loss. CEREBELLUM: No masses. No hemorrhage. No alteration of density. No evidence for acute infarction. EXTRAAXIAL SPACES: No fluid collections. No masses. ORBITS AND GLOBE: No intra- or extraconal masses. Normal contour of globe without masses. CALVARIUM: No fracture. PARANASAL SINUSES: No fluid or mucosal thickening. SOFT TISSUES: No mass or hematoma. OTHER: No other significant finding. IMPRESSION: 1. No acute intracranial pathology. 2. Advanced small vessel white matter disease. EVIDENCE OF ACUTE STROKE: NO. COMMENT: Quality ID # [id number]: Final reports with documentation of one or more dose reduction techniques (e.g., Automated exposure control, adjustment of the mA and/or kV according to patient size, use of iterative reconstruction technique) TECHNICAL DOCUMENTATION: JOB ID: [id number] [employer]- All Rights Reserved Reading location - IP/workstation name: [email or web address]
--- NOTE | 2018-09-13 16:13 | ER Document Report ---
ED General - General Chief Complaint: Syncope Stated Complaint: SYNCOPE Time Seen by Provider: 09/13/18 13:31 Mode of Arrival: Medic Information source: Relative Notes: Patient is a 77-year-old female who presents to the emergency department with episode of syncope. Patient's son reports that she was sitting up at the kitchen table when she all of a sudden slumped over to the side. He reports that he was right next to her so he was able to catch her, she had a guided fall to the ground and did not strike her head. She quickly came to. Patient does have a history of aphasia from a previous stroke. Patient does communicate using nodding. Patient denies any symptoms, denies any dysuria. He reports that she has had a normal appetite lately and has had normal p.o. intake. Son states he is her primary county judge and he reports that she has been well. He does report she had a similar episode approximately 2 weeks ago, was seen here in the emergency department and discharged home with no acute findings. Her primary care provider is at [facility]. TRAVEL OUTSIDE OF THE [place] IN LAST 30 DAYS: No - Related Data Allergies/Adverse Reactions: No Known Allergies Allergy (Verified 08/28/18 09:46) Past Medical History - General Information source: Patient - Social History Smoking Status: Never Smoker Frequency of alcohol use: None Drug Abuse: None Family History: Reviewed & Not Pertinent, Other - Unobtainable - Past Medical History Cardiac Medical History: Reports: Hx Hypertension Pulmonary Medical History: Reports: Hx COPD Renal/ Medical History: Denies: Hx Peritoneal Dialysis Psychiatric Medical History: Denies: Hx Depression Surgical Hx: Negative - Immunizations Hx Diphtheria, Pertussis, Tetanus Vaccination: Yes Hx Pneumococcal Vaccination: 10/11/00 Physical Exam - Vital signs Vitals: Resp Pulse Ox 19 97 09/13/18 11:59 09/13/18 11:59 - Notes Notes: PHYSICAL EXAMINATION: GENERAL: Well-appearing, well-nourished and in no acute distress. HEAD: Atraumatic, normocephalic. EYES: Pupils equal round and reactive to light, extraocular movements intact, conjunctiva are normal. ENT: Nares patent, oropharynx clear without exudates. Moist mucous membranes. NECK: Normal range of motion, supple without lymphadenopathy LUNGS: Breath sounds clear to auscultation bilaterally and equal. No wheezes rales or rhonchi. HEART: Regular rate and rhythm without murmurs ABDOMEN: Soft, nontender, nondistended abdomen. No guarding, no rebound. No masses appreciated. Female : No CVA tenderness. Musculoskeletal: Normal range of motion, no pitting or edema. No cyanosis. Pelvis is stable to palpation. NEUROLOGICAL: Cranial nerves grossly intact. Normal sensory, motor exams PSYCH: Normal for patient. SKIN: Warm, Dry, normal turgor, no ecchymosis, rashes or lesions noted. Course - Re-evaluation Re-evalutation: CBC, CMP and cardiac enzymes are all unremarkable. Urinalysis with no signs of infection. EKG is unchanged from previous. CT head was negative for any acute findings. I did have a lengthy discussion with the son who is requesting that I attempt to admit the patient as this is the second syncopal episode in 2 weeks. Her vital signs have been stable here and she continues to have no acute complaints. I did consult the hospitalist, Dr. Stephens who agrees to accept patient for admit. Patient and family both updated. - Vital Signs Vital signs: Temp Pulse Resp BP Pulse Ox 97.9 F 86 19 173/97 H 98 09/13/18 12:01 09/13/18 14:31 09/13/18 13:01 09/13/18 14:31 09/13/18 13:01 - Laboratory Result Diagrams: 09/13/18 12:30 09/13/18 12:30 Laboratory results interpreted by me: 09/13/18 12:30 Glucose 134 H Discharge - Discharge Clinical Impression: Syncope Qualifiers: Syncope type: unspecified Qualified Code(s): R55 - Syncope and collapse Condition: Stable Disposition: ADMITTED INPATIENT Admitting Provider: Hospitalist Unit Admitted: Telemetry
--- NOTE | 2018-09-13 18:18 | PDOC H&P ---
History of Present Illness Admission Date/PCP: 09/13/18 16:54 Patient complains of: presyncope History of Present Illness: ELIZA ALSTON is a 77 year old female with a past medical history of hypertension and history of CVA with residual expressive aphasia who was brought in because of the presyncope. History was obtained from ER provider as son/DPOA left the hospital and is unreachable by phone at the moment. Patient's son reported that patient was sitting at home earlier today and suddenly slumped over to the side and may have passed out for a few seconds. There was no apparent post episode confusion , bowel or urinary incontinence. No seizure-like activity. Patient apparently had a similar episode last week. Upon encounter, patient is not in distress. She is able to tell me her name but is not able to express further on further questioning. She will be admitted for observation for a syncopal work-up. Past Medical History Cardiac Medical History: Reports: Hypertension Pulmonary Medical History: Reports: Chronic Obstructive Pulmonary Disease (COPD) Psychiatric Medical History: Denies: Depression Social History Smoking Status: Former Smoker Frequency of Alcohol Use: None Hx Recreational Drug Use: No Hx Prescription Drug Abuse: No Family History Family History: Reviewed & Not Pertinent, Other - Unobtainable Parental Family History Reviewed: Yes - no premature CAD Children Family History Reviewed: No Sibling(s) Family History Reviewed.: No Medication/Allergy Home Medications: Carvedilol [Coreg 6.25 mg Tablet] 6.25 mg PO Q12 12/19/17 Albuterol Sulfate [Proair Hfa Inhalation Aerosol 8.5 gm Mdi] 1 puff IH Q4 PRN Fluticasone/Vilanterol [Breo Ellipta 200-25 Mcg INH] 1 each IH DAILY 09/14/18 Allergies/Adverse Reactions: No Known Allergies Allergy (Verified 08/28/18 09:46) Review of Systems ROS unobtainable: Due to mental status - has expressive aphasia All systems: reviewed and no additional remarkable complaints except as stated Physical Exam Vital Signs: Temp Pulse Resp BP Pulse Ox 97.9 F 86 19 173/97 H 98 09/13/18 12:01 09/13/18 14:31 09/13/18 13:01 09/13/18 14:31 09/13/18 13:01 General appearance: PRESENT: no acute distress, well-developed Head exam: PRESENT: atraumatic, normocephalic Eye exam: PRESENT: conjunctiva pink, EOMI, PERRLA. ABSENT: scleral icterus Ear exam: PRESENT: normal external ear exam Mouth exam: PRESENT: moist, tongue midline Neck exam: ABSENT: carotid bruit, JVD, lymphadenopathy, thyromegaly Respiratory exam: PRESENT: clear to auscultation anthony. ABSENT: rales, rhonchi, wheezes Cardiovascular exam: PRESENT: RRR. ABSENT: diastolic murmur, rubs, systolic murmur Pulses: PRESENT: normal dorsalis pedis pul GI/Abdominal exam: PRESENT: normal bowel sounds, soft. ABSENT: distended, guarding, mass, organolmegaly, rebound, tenderness Rectal exam: PRESENT: deferred Neurological exam: PRESENT: alert, awake, oriented to person, aphasic - has some expressive aphasia. ABSENT: CN II-XII grossly intact, motor sensory deficit Results Impressions: Head CT 09/13/18 14:58 IMPRESSION: 1. No acute intracranial pathology. 2. Advanced small vessel white matter disease. EVIDENCE OF ACUTE STROKE: NO. Assessment & Plan - Diagnosis (1) Syncope Qualifiers: Syncope type: unspecified Qualified Code(s): R55 - Syncope and collapse Is this a current diagnosis for this admission?: Yes Plan: CT head was negative. No acute neurologic deficits aside from her chronic expressive aphasia. Will monitor orthostatic vital signs. EKG and troponin have both been negative. Will order a carotid doppler. Will place patient on continuous tele monitoring overnight. (2) Hypertension Is this a current diagnosis for this admission?: Yes Plan: Will resume Coreg. - Time Time Spent: 30 to 50 Minutes
--- NOTE | 2018-09-13 19:56 | RADIOLOGY REPORT (SQ) ---
EXAM DESCRIPTION: CAROTID DOPPLER COMPLETED DATE/TIME: 09/13/2018 7:44 pm REASON FOR STUDY: syncope COMPARISON: 07/09/2014 TECHNIQUE: Grayscale ultrasound, Doppler velocity and spectra, and color Doppler images acquired of the extra-cranial carotid and vertebral arteries. Images stored on PACS. LIMITATIONS: None. FINDINGS: RIGHT CAROTID CCA Velocities: Within normal limits. ICA Velocities Peak systolic 0.55 m/s. End diastolic 0.14 m/s. Proximal ICA/CCA peak systolic ratio 1.3. Spectra normal. No significant plaque. LEFT CAROTID CCA Velocities: Within normal limits. ICA Velocities Peak systolic 0.78 m/s. End diastolic 0.19 m/s. Proximal ICA/CCA peak systolic ratio 1.3. Spectra normal. No significant plaque. VERTEBRAL ARTERIES: Antegrade flow. Normal waveforms. SUBCLAVIAN ARTERIES: No finding. OTHER: No other significant finding. IMPRESSION: NO HEMODYNAMICALLY SIGNIFICANT STENOSIS. COMMENT: Quality ID #[id number]: Velocity criteria are extrapolated from the diameter data as defined by t he Society of Radiologists in Ultrasound Consensus Conference. Radiology 2003: 229; 340-346. TECHNICAL DOCUMENTATION: JOB ID: [id number]- All Rights Reserved Reading location - IP/workstation name: [email or web address]
--- NOTE | 2018-09-13 20:15 | EKG REPORT ---
SEVERITY:- ABNORMAL ECG - SINUS RHYTHM NONSPECIFIC INTRAVENTRICULAR CONDUCTION DELAY CONSIDER LEFT VENTRICULAR HYPERTROPHY BORDERLINE INFERIOR Q WAVES ST DEPRESSION, CONSIDER ISCHEMIA, LAT LEADS : Confirmed by: Yinka Story 13-Sep-2018 20:14:21
[2018-09-13] MEDS: HEPARIN SOD (PORCINE) 5,000 UNIT/ML 1 ML SYRINGE SUBCUT SCH (23:58)
[2018-09-14 06:38] LABS: CHOLESTEROL 187.84 mg/dL (0-200); TRIGLYCERIDES 90 mg/dL (<150)
[2018-09-14 06:48] LABS: DIRECT LDL 110 mg/dL (<100)
[2018-09-14] MEDS: HEPARIN SOD (PORCINE) 5,000 UNIT/ML 1 ML SYRINGE SUBCUT SCH ×2 (09:18→21:38)
--- NOTE | 2018-09-14 12:02 | EKG REPORT ---
SEVERITY:- ABNORMAL ECG - SINUS RHYTHM RIGHT ATRIAL ABNORMALITY BORDERLINE RIGHT AXIS DEVIATION CONSIDER LEFT VENTRICULAR HYPERTROPHY PROLONGED QT INTERVAL : Confirmed by: Yinka Story 14-Sep-2018 12:01:41
[2018-09-14] MEDS ORDERED: NORMAL SALINE 1000 ML 1,000 ML IV ONE (12:58)
--- NOTE | 2018-09-14 16:33 | PDOC PROGRESS REPORT ---
Subjective Progress Note for:: 09/14/18 Subjective:: ELIZA ALSTON is a 77 year old female with a past medical history of hypertension and history of CVA with residual expressive aphasia who was brought in because of the presyncope. Upon encounter this morning, patient's son was in the bedside. History was reobtained. Patient's son says that more than a week ago, patient used the bathroom to urinate and after coming out of the bathroom patient suddenly felt weak and patient was noted to be down on her knees. Patient did not lose consciousness but reportedly looked like she was a about to pass out. After a few minutes of sitting on the floor, patient was back to her baseline and felt fine. He says that yesterday morning, patient had a similar episode. she was walking towards dining table from the kitchen when the patient was noted to be sluggish and slumped down on her side. Again, patient did not lose consciousness but appeared weak and looked like she was about to faint. No acute event overnight. However, patient's orthostatic vital signs overnight did show positive orthostasis with a recent blood pressure of lying 163/90, sitting 155/94 and standing 130/82. Patient denies acute complaint. No dizziness , lightheadedness, presyncopal sensation, chest pain or shortness of breath. Reason For Visit: SYNCOPE Physical Exam Vital Signs: Temp Pulse Resp BP Pulse Ox 97.6 F 105 H 19 182/89 H 96 09/14/18 11:21 09/14/18 14:00 09/14/18 11:21 09/14/18 11:21 09/14/18 11:21 Intake & Output 09/13/18 09/14/18 09/15/18 06:59 06:59 06:59 Intake Total 0 360 Output Total 300 500 Balance -300 -140 Weight 99 lb 10.383 oz General appearance: PRESENT: no acute distress, well-developed, well-nourished Eye exam: PRESENT: conjunctiva pink, EOMI, PERRLA. ABSENT: scleral icterus Ear exam: PRESENT: normal external ear exam Neck exam: ABSENT: carotid bruit, JVD, lymphadenopathy, thyromegaly Respiratory exam: PRESENT: clear to auscultation anthony. ABSENT: rales, rhonchi, wheezes Cardiovascular exam: PRESENT: RRR. ABSENT: diastolic murmur, rubs, systolic murmur Pulses: PRESENT: normal dorsalis pedis pul GI/Abdominal exam: PRESENT: normal bowel sounds, soft. ABSENT: distended, guarding, mass, organolmegaly, rebound, tenderness Rectal exam: PRESENT: deferred Neurological exam: PRESENT: alert, awake, oriented to person, CN II-XII grossly intact. ABSENT: motor sensory deficit Results Laboratory Results: 09/14/18 05:04 Triglycerides 90 Cholesterol 187.84 LDL Cholesterol Direct 110 H VLDL Cholesterol 18.0 HDL Cholesterol 50 09/13/18 19:48 Troponin I 0.016 Impressions: Carotid Doppler Study 09/13/18 00:00 IMPRESSION: NO HEMODYNAMICALLY SIGNIFICANT STENOSIS. Head CT 09/13/18 14:58 IMPRESSION: 1. No acute intracranial pathology. 2. Advanced small vessel white matter disease. EVIDENCE OF ACUTE STROKE: NO. Assessment & Plan - Diagnosis (1) Pre-syncope Is this a current diagnosis for this admission?: Yes Plan: Orthostatic presyncope. CT head was negative. No acute neurologic deficits aside from her chronic expressive aphasia. EKG and troponin have both been negative. Carotid Doppler was normal. Telemetry monitoring was unremarkable overnight. Patient's orthostatic vital signs overnight did show positive orthostasis with a recent blood pressure of lying 163/90, sitting 155/94 and standing 130/82. Will give patient a liter of fluid bolus and will continue IV fluids. We will continue to monitor orthostatic vital signs overnight. (2) Hypertension Is this a current diagnosis for this admission?: Yes Plan: Will resume Coreg. - Time Time Spent with patient: 15-24 minutes
[2018-09-15] MEDS: HEPARIN SOD (PORCINE) 5,000 UNIT/ML 1 ML SYRINGE SUBCUT SCH (09:22)
[2018-09-15 09:46] VITALS: BP 156/85
[2018-09-15] MEDS ORDERED: NORMAL SALINE 1000 ML 1,000 ML IV ONE (10:09)
[2018-09-15] MEDS ORDERED: NORMAL SALINE 1000 ML 1,000 ML IV PRN (10:10)
--- NOTE | 2018-09-15 19:01 | PDOC DISCHARGE SUMMARY ---
General - Admit/Disc Date/PCP Admission Date/Primary Care Provider: 09/13/18 16:54 Discharge Date: 09/15/18 - Discharge Diagnosis (1) Pre-syncope Is this a current diagnosis for this admission?: Yes (2) Hypertension Is this a current diagnosis for this admission?: Yes - Additional Information Resuscitation Status: Full Code Discharge Diet: As Tolerated Discharge Activity: Activity As Tolerated Home Medications: Carvedilol [Coreg 6.25 mg Tablet] 6.25 mg PO Q12 12/19/17 Albuterol Sulfate [Proair HFA Inhalation Aerosol 8.5 gm MDI] 1 puff IH Q4 PRN Fluticasone/Vilanterol [Breo Ellipta 200-25 Mcg INH] 1 each IH DAILY 09/14/18 History of Present Illness History of Present Illness: ELIZA ALSTON is a 77 year old female with a past medical history of hypertension and history of CVA with residual expressive aphasia who was brought in because of the presyncope. Patient's son says that more than a week ago, patient used the bathroom to urinate and after coming out of the bathroom patient suddenly felt weak and patient was noted to be down on her knees. Patient did not lose consciousness but reportedly looked like she was a about to pass out. After a few minutes of sitting on the floor, patient was back to her baseline and felt fine. He says that yesterday morning, patient had a similar episode. she was walking towards dining table from the kitchen when the patient was noted to be sluggish and slumped down on her side. Again, patient did not lose consciousness but appeared weak and looked like she was about to faint. Hospital Course Hospital Course: ELIZA ALSTON is a 77 year old female with a past medical history of hypertension and history of CVA with residual expressive aphasia who was brought in because of the presyncope. Patient did not have any loss of consciousness. EKG and troponin were negative. Patient did have positive orthostatic vital signs. She did appear on the dry side upon presentation. She was given IV bolus and was continued on IV fluids which did eventually resolve her orthostasis. Carotid Doppler was unremarkable. Telemetry monitoring for 48 hours where unremarkable for any arrhythmias. Inquired about patient's oral intake at home as she did have some signs of dehydration. Patient's son does say that she is showing some symptoms of dementia. She does have history of CVA and could be developing vascular dementia. Explained that patient may be having poor oral intake at home contributing to her orthostasis. Physical Exam Vital Signs: Temp Pulse Resp BP Pulse Ox 98.5 F 100 19 156/85 H 100 09/15/18 16:07 09/15/18 16:07 09/15/18 16:07 09/15/18 16:07 09/15/18 16:07 Intake & Output 09/14/18 09/15/18 09/16/18 06:59 06:59 06:59 Intake Total 0 478 Output Total 300 1250 Balance -300 -772 Weight 99 lb 10.383 oz 99 lb 10.383 oz General appearance: PRESENT: no acute distress, well-developed, well-nourished Head exam: PRESENT: atraumatic, normocephalic Eye exam: PRESENT: conjunctiva pink, EOMI, PERRLA. ABSENT: scleral icterus Ear exam: PRESENT: normal external ear exam Neck exam: ABSENT: carotid bruit, JVD, lymphadenopathy, thyromegaly Respiratory exam: PRESENT: clear to auscultation anthony. ABSENT: rales, rhonchi, wheezes Cardiovascular exam: PRESENT: RRR. ABSENT: diastolic murmur, rubs, systolic murmur Pulses: PRESENT: normal dorsalis pedis pul GI/Abdominal exam: PRESENT: normal bowel sounds, soft. ABSENT: distended, guarding, mass, organolmegaly, rebound, tenderness Rectal exam: PRESENT: deferred Neurological exam: PRESENT: alert, awake, oriented to person Results Laboratory Results: 09/13/18 19:48 Troponin I 0.016 Impressions: Carotid Doppler Study 09/13/18 00:00 IMPRESSION: NO HEMODYNAMICALLY SIGNIFICANT STENOSIS. Head CT 09/13/18 14:58 IMPRESSION: 1. No acute intracranial pathology. 2. Advanced small vessel white matter disease. EVIDENCE OF ACUTE STROKE: NO. Qualifiers - * PATIENT BEING DISCHARGED WITH ANY OF THE FOLLOWING DIAGNOSIS: No
== END 2018-09-15 16:30 | disposition home or self-care (01) ==
LOC: ER 11:54 → EH 16:54 → INTOOBSV 16:54 → 4S 20:39
PROVIDERS: ADMIT Internal Medicine; ATTEND Internal Medicine
DX: R55 Syncope and collapse (principal); I10 Essential (primary) hypertension; I69.320 Aphasia following cerebral infarction; J44.9 Chronic obstructive pulmonary disease, unspecified; Z87.891 Personal history of nicotine dependence; Z79.51 Long term (current) use of inhaled steroids; Z79.899 Other long term (current) drug therapy
CPT/HCPCS: 93005 ×2; 99285; 36415 ×2; 82553; 82550; 84443; 85025; 85652; 80053; 81001; 84484; 80061; 93880; 70450; 93010; 97116; 97161; G0378 ×4; J1644 ×3; J3490 ×2; J7030 ×2; G8978; G8979; G8980

== ENCOUNTER 2019-07-09 07:02 | Inpatient (IN) | payer MEDICARE ==
[2019-07-09 08:25] LABS: APPEARANCE,URINE CLEAR; BILIRUBIN,URINE NEGATIVE (NEGATIVE); COLOR,URINE YELLOW; GLUCOSE, URINE NEGATIVE (NEGATIVE); KETONES,URINE NEGATIVE (NEGATIVE); LEUKOCYTE ESTERASE,URINE NEGATIVE (NEGATIVE); NITRITE,URINE NEGATIVE (NEGATIVE); PROTEIN,URINE NEGATIVE (NEGATIVE); URINE SPECIFIC GRAVITY 1.016
[2019-07-09 08:48] LABS: ABSOLUTE EOSINOPHILS # (AUTO) 0.1 10^3/uL (0.0-0.6); ABSOLUTE LYMPHOCYTES (AUTO) 0.7 10^3/uL (0.5-4.7); ABSOLUTE MONOCYTES (AUTO) 0.8 10^3/uL (0.1-1.4); ABSOLUTE NEUT (AUTO) 9.5 10^3/uL (1.7-8.2); BASOPHILS % (AUTO) 0.4 % (0-2); EOSINOPHILS % (AUTO) 1.1 % (0-6); HEMATOCRIT 37.2 % (36.0-47.0); HEMOGLOBIN 12.1 g/dL (12.0-15.5); LYMPHOCYTES % (AUTO) 6.6 % (13-45); MEAN CORPUSCULAR HEMOGLOBIN 30.1 pg (27.0-33.4); MEAN CORPUSCULAR HGB CONC 32.6 g/dL (32.0-36.0); MEAN CORPUSCULAR VOLUME 92 fl (80-97); MONOCYTES % (AUTO) 7.3 % (3-13); PLATELET COUNT 223 10^3/uL (150-450); RED BLOOD COUNT 4.04 10^6/uL (3.72-5.28); RED CELL DISTRIBUTION WIDTH 13.4 % (11.5-14.0); SEGMENTED NEUTROPHILS % (AUTO) 84.6 % (42-78); TOTAL CELLS COUNTED % (AUTO) 100 %; WHITE BLOOD COUNT 11.2 10^3/uL (4.0-10.5)
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
[2019-07-09 09:12] LABS: ALBUMIN 3.5 g/dL (3.5-5.0); ALKALINE PHOSPHATASE 110 U/L (38-126); ANION GAP 7 (5-19); ASPARTATE AMINO TRANSFERASE 20 U/L (14-36); BILIRUBIN,DIRECT 0.3 mg/dL (0.0-0.4); BILIRUBIN,TOTAL 0.5 mg/dL (0.2-1.3); BLOOD UREA NITROGEN 17 mg/dL (7-20); CALCIUM 8.9 mg/dL (8.4-10.2); CARBON DIOXIDE 28 mmol/L (22-30); CHLORIDE 103 mmol/L (98-107); CREATINE KINASE 58 U/L (30-135); GLUCOSE 176 mg/dL (75-110); POTASSIUM 3.7 mmol/L (3.6-5.0); TOTAL PROTEIN 6.6 g/dL (6.3-8.2)
[2019-07-09 09:23] LABS: CREATINE KINASE MB 1.46 ng/mL (<4.55)
[2019-07-09 09:24] LABS: TROPONIN I < 0.012 ng/mL
--- NOTE | 2019-07-09 09:29 | RADIOLOGY REPORT (SQ) ---
EXAM DESCRIPTION: CT HEAD WITHOUT COMPLETED DATE/TIME: 07/09/2019 9:15 am REASON FOR STUDY: found down COMPARISON: 09/13/2018 TECHNIQUE: Axial images acquired through the brain without intravenous contrast. Images reviewed wi th bone, brain and subdural windows. Additional sagittal and coronal reconstructions were generated. Images stored on PACS. All CT scanners at this facility use dose modulation, iterative reconstruction, and/or weight based d osing when appropriate to reduce radiation dose to as low as reasonably achievable (ALARA). [facility]: Dose Right [facility]: CareDose [facility]: Dose Right [facility]: Teradose 4D [facility]: Smart Technologies RADIATION DOSE: CT Rad equipment meets quality standard of care and radiation dose reduction techniq ues were employed. CTDIvol: 53.2 mGy. DLP: 884 mGy-cm.mGy. LIMITATIONS: None. FINDINGS: VENTRICLES: Prominent. CEREBRUM: No masses. No hemorrhage. No midline shift. Areas of low density in the white matter mos t likely due to chronic micro-vascular ischemic change. No evidence for acute infarction. CEREBELLUM: No masses. No hemorrhage. No alteration of density. No evidence for acute infarction. EXTRAAXIAL SPACES: Age-related involutional change. No fluid collections. No masses. ORBITS AND GLOBE: No intra- or extraconal masses. Normal contour of globe without masses. CALVARIUM: No fracture. PARANASAL SINUSES: No fluid or mucosal thickening. SOFT TISSUES: No mass or hematoma. OTHER: No other significant finding. IMPRESSION: CHRONIC CHANGES OF ATROPHY AND MICROVASCULAR ISCHEMIA. NO ACUTE PROCESS. EVIDENCE OF ACUTE STROKE: NO. TECHNICAL DOCUMENTATION: JOB ID: [id number] Quality ID # [id number]: Final reports with documentation of one or more dose reduction techniques (e.g., Au tomated exposure control, adjustment of the mA and/or kV according to patient size, use of iterative reconstruction technique) 2010 [employer]- All Rights Reserved Reading location - IP/workstation name: [email or web address]
--- NOTE | 2019-07-09 09:32 | RADIOLOGY REPORT (SQ) ---
EXAM DESCRIPTION: CT CERVICAL SPINE WITHOUT COMPLETED DATE/TIME: 07/09/2019 9:15 am REASON FOR STUDY: found down COMPARISON: Chest CT 12/25/2017 TECHNIQUE: Axial images acquired through the cervical spine without intravenous contrast. Images re viewed with lung, soft tissue and bone windows. Reconstructed coronal and sagittal MPR images review ed. Images stored on PACS. All CT scanners at this facility use dose modulation, iterative reconstruction, and/or weight based d osing when appropriate to reduce radiation dose to as low as reasonably achievable (ALARA). [facility]: Dose Right [facility]: CareDose [facility]: Dose Right [facility]: Teradose 4D [facility]: Smart [employer] RADIATION DOSE: CT Rad equipment meets quality standard of care and radiation dose reduction techniq ues were employed. CTDIvol: 8.4 mGy. DLP: 178 mGy-cm. mGy. LIMITATIONS: None. FINDINGS: ALIGNMENT: Anatomic. MINERALIZATION: Normal. VERTEBRAL BODIES: Superior endplate compression of T1 and T2 which could be acute. No fractures in t he cervical spine. DISCS: Multilevel disc space narrowing with osteophytes. FACETS, LATERAL MASSES, POSTERIOR ELEMENTS: Facet arthropathy. No fractures. No dislocation. No ac [place] findings. HARDWARE: None in the spine. VISUALIZED RIBS: No fractures. LUNG APICES AND SOFT TISSUES: Chronic changes in the left lung apex. OTHER: No other significant finding. IMPRESSION: Possible acute compression fractures of the superior endplates of both T1 and T 2. No f ractures of the cervical spine. TECHNICAL DOCUMENTATION: JOB ID: [id number] Quality ID # [id number]: Final reports with documentation of one or more dose reduction techniques (e.g., Au tomated exposure control, adjustment of the mA and/or kV according to patient size, use of iterative reconstruction technique) 2010 [employer]- All Rights Reserved Reading location - IP/workstation name: [email or web address]
--- NOTE | 2019-07-09 09:33 | RADIOLOGY REPORT (SQ) ---
EXAM DESCRIPTION: HIP BILATERAL COMPLETED DATE/TIME: 07/09/2019 9:13 am REASON FOR STUDY: fall, now not walking COMPARISON: None. NUMBER OF VIEWS: Two views TECHNIQUE: AP pelvis and additional frog-leg view of both hips. LIMITATIONS: None. FINDINGS: MINERALIZATION: Osteopenia. HIPS: Comminuted intertrochanteric fracture of the right hip. Degenerative changes of the left hip. PELVIS AND SACRUM: No acute fracture or dislocation. No worrisome bone lesions. PUBIS AND ISCHIUM: No acute fracture. LOWER LUMBAR SPINE: Degenerative changes SOFT TISSUES: No findings. OTHER: No other significant finding. IMPRESSION: Comminuted intertrochanteric fracture right hip. TECHNICAL DOCUMENTATION: JOB ID: [id number] [employer]- All Rights Reserved Reading location - IP/workstation name: [email or web address]
[2019-07-09 10:54] LABS: PROTHROMBIN TIME 14.2 SEC (11.4-15.4)
[2019-07-09 10:55] LABS: PARTIAL THROMBOPLASTIN TIME 31.8 SEC (23.5-35.8)
[2019-07-09] MEDS ORDERED: FENTANYL CITRATE INJ/PF 100 MCG/2 ML AMPUL IV ONE (11:01)
[2019-07-09] MEDS ORDERED: ALBUTEROL SULFATE 0.083% NEB 2.5 MG/3 ML AMPUL NEB PRN (11:16)
[2019-07-09] MEDS ORDERED: ACETAMINOPHEN 325 MG TABLET PO PRN (11:16)
[2019-07-09] MEDS ORDERED: ONDANSETRON HCL INJ/PF 4 MG/2 ML SDV IV PRN (11:16)
[2019-07-09] MEDS ORDERED: MAG HYDROX/AL HYDROX/SIMETH SUSP 30 ML UDCUP PO PRN (11:16)
[2019-07-09] MEDS ORDERED: PROMETHAZINE HCL INJ 25 MG/1 ML VIAL IV PRN (11:16)
[2019-07-09] MEDS ORDERED: MAGNESIUM HYDROXIDE SUSP 30 ML UDCUP PO PRN (11:16)
--- NOTE | 2019-07-09 11:57 | RADIOLOGY REPORT (SQ) ---
EXAM DESCRIPTION: CT THORACIC SPINE WITHOUT COMPLETED DATE/TIME: 07/09/2019 11:46 am REASON FOR STUDY: fall COMPARISON: Chest CT 2018 TECHNIQUE: Axial images acquired through the thoracic spine without intravenous contrast. Images re viewed with lung, soft tissue and bone windows. Reconstructed coronal and sagittal MPR images review ed. Images stored on PACS. All CT scanners at this facility use dose modulation, iterative reconstruction, and/or weight based d osing when appropriate to reduce radiation dose to as low as reasonably achievable (ALARA). [facility]: Dose Right [facility]: CareDose [facility]: Dose Right [facility]: Teradose 4D [facility]: [employer] RADIATION DOSE: CT Rad equipment meets quality standard of care and radiation dose reduction techniq ues were employed. CTDIvol: 17.1 mGy. DLP: 570 mGy-cm. mGy. LIMITATIONS: None. FINDINGS: VISUALIZED LUNGS: Chronic changes in the left apex. SOFT TISSUES: No soft tissue swelling. No masses. VERTEBRAL BODIES: Superior endplate fractures of T1 and T2. There is also minimal loss of height of the T12 vertebral body which was not seen on the prior CT and 2007. Changes in T11 are stable. No p osterior element fracture. DISCS: Diffuse degenerative changes. ALIGNMENT: Normal. TRANSVERSE PROCESSES, POSTERIOR ELEMENTS: No fractures. No dislocation. No acute findings. HARDWARE: None in the spine. VISUALIZED RIBS: No fractures. OTHER: No other significant finding. IMPRESSION: New superior endplate fractures T1 and T2 as new loss of height of the T12 vertebral bod y. T11 changes are stable. TECHNICAL DOCUMENTATION: JOB ID: [id number] Quality ID # [id number]: Final reports with documentation of one or more dose reduction techniques (e.g., Au tomated exposure control, adjustment of the mA and/or kV according to patient size, use of iterative reconstruction technique) 2010 [employer]- All Rights Reserved Reading location - IP/workstation name: [email or web address]
--- NOTE | 2019-07-09 11:59 | RADIOLOGY REPORT (SQ) ---
EXAM DESCRIPTION: CT LUMBAR SPINE WITHOUT COMPLETED DATE/TIME: 07/09/2019 11:46 am REASON FOR STUDY: fall COMPARISON: None. TECHNIQUE: Axial images acquired through the lumbar spine without intravenous contrast. Images revi ewed with lung, soft tissue and bone windows. Reconstructed coronal and sagittal MPR images reviewed . All images stored on PACS. All CT scanners at this facility use dose modulation, iterative reconstruction, and/or weight based d osing when appropriate to reduce radiation dose to as low as reasonably achievable (ALARA). [facility]: Dose Right [facility]: CareDose [facility]: Dose Right [facility]: Teradose 4D [facility]: [employer] RADIATION DOSE: mGy. LIMITATIONS: None. FINDINGS: SEGMENTATION: Normal. No transitional anatomy. ALIGNMENT: Normal. VERTEBRAL BODIES: Minimal T12 compression fracture not seen on the CT scan 2018. DISCS: Diffuse degenerative disc particular in the lower lumbar spine. PEDICLES, TRANSVERSE PROCESSES: No fractures. No dislocation. No acute findings. FACETS, POSTERIOR ELEMENTS: No fractures. No dislocation. No spinal stenosis. HARDWARE: None in the spine. VISUALIZED RIBS: No fractures. SOFT TISSUES: No significant or acute finding in adjacent soft tissues. OTHER: No other significant finding. IMPRESSION: Mild T12 compression fracture not seen on prior CT in 2018. TECHNICAL DOCUMENTATION: JOB ID: [id number] Quality ID # [id number]: Final reports with documentation of one or more dose reduction techniques (e.g., Au tomated exposure control, adjustment of the mA and/or kV according to patient size, use of iterative reconstruction technique) 2010 [employer] All Rights Reserved Reading location - IP/workstation name: [email or web address]
[2019-07-09] MEDS ORDERED: MORPHINE SULFATE 10 MG/ML INJ IV PRN (14:48)
[2019-07-09] MEDS ORDERED: NORMAL SALINE 1000 ML 1,000 ML IV PRN (15:09)
--- NOTE | 2019-07-09 15:44 | PDOC H&P ---
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 Evaluation in the emergency department revealed stable vital signs, unremarkable laboratory work-up, EKG demonstrating sinus rhythm with LVH, and acute endplate fractures of T1 and T2, compression fracture of T12, and right intertrochanteric hip fracture. Orthopedic services were consulted. She is referred to the hospitalist service for admission and management of the above findings. Past Medical History Cardiac Medical History: Reports: Hypertension Pulmonary Medical History: Reports: Chronic Obstructive Pulmonary Disease (COPD) Neurological Medical History: Reports: Ischemic CVA Psychiatric Medical History: Reports: Dementia Denies: Depression Social History Information Source: [facility] Personnel, [facility], [facility] Records Lives with: Family Smoking Status: Former Smoker Frequency of Alcohol Use: None Hx Recreational Drug Use: No Hx Prescription Drug Abuse: No - Advance Directive Surrogate healthcare decision maker:: Presumably the patient's son (who she lives with), Mikael, . Attempted to contact son by phone; no answer or voice mail available. Family History Family History: Other - Unobtainable Parental Family History Reviewed: No Children Family History Reviewed: No Sibling(s) Family History Reviewed.: No Medication/Allergy Home Medications: Carvedilol [Coreg 6.25 mg Tablet] 6.25 mg PO Q12 12/19/17 Albuterol Sulfate [Proair HFA Inhalation Aerosol 8.5 gm MDI] 1 puff IH Q4 PRN 09/14/18 Fluticasone/Vilanterol [Breo Ellipta 200-25 Mcg INH] 1 each IH DAILY 09/14/18 Allergies/Adverse Reactions: No Known Allergies Allergy (Verified 08/28/18 09:46) Review of Systems ROS unobtainable: Other - unable to obtain r/t total aphasia from prior CVA Physical Exam Vital Signs: Temp Pulse Resp BP Pulse Ox 98.2 F 96 18 149/77 H 95 07/09/19 13:07 07/09/19 13:07 07/09/19 13:07 07/09/19 13:07 07/09/19 13:07 Intake & Output 07/08/19 07/09/19 07/10/19 06:59 06:59 06:59 Weight 40 kg General appearance: PRESENT: no acute distress, thin, well-developed Head exam: PRESENT: atraumatic, normocephalic Eye exam: PRESENT: conjunctiva pink, EOMI, PERRLA. ABSENT: scleral icterus Ear exam: PRESENT: normal external ear exam Mouth exam: PRESENT: moist, tongue midline Teeth exam: PRESENT: poor dentation Neck exam: ABSENT: carotid bruit, JVD, lymphadenopathy, thyromegaly Respiratory exam: PRESENT: clear to auscultation anthony, symmetrical, unlabored. ABSENT: rales, rhonchi, wheezes Cardiovascular exam: PRESENT: RRR, +S1, +S2. ABSENT: diastolic murmur, rubs, systolic murmur Pulses: PRESENT: normal dorsalis pedis pul Vascular exam: PRESENT: normal capillary refill GI/Abdominal exam: PRESENT: normal bowel sounds, soft. ABSENT: distended, guarding, mass, organolmegaly, rebound, tenderness Rectal exam: PRESENT: deferred Extremities exam: PRESENT: other - RLE shortened and externally rotated. ABSENT: calf tenderness, clubbing, pedal edema Neurological exam: PRESENT: alert, awake, CN II-XII grossly intact, aphasic, other - At baseline per EMS and [facility] records. ABSENT: motor sensory deficit Skin exam: PRESENT: dry, intact, warm. ABSENT: cyanosis, rash Results Laboratory Results: 07/09/19 08:25 07/09/19 08:25 07/09/19 07/09/19 07/09/19 08:02 08:25 08:25 WBC 11.2 H RBC 4.04 Hgb 12.1 Hct 37.2 MCV 92 MCH 30.1 MCHC 32.6 RDW 13.4 Plt Count 223 Seg Neutrophils % 84.6 H Sodium 138.0 Potassium 3.7 Chloride 103 Carbon Dioxide 28 Anion Gap 7 BUN 17 Creatinine 0.64 Est GFR ( Amer) > 60 Glucose 176 H Calcium 8.9 Total Bilirubin 0.5 AST 20 Alkaline Phosphatase 110 Total Protein 6.6 Albumin 3.5 Urine Color YELLOW Urine Appearance CLEAR Urine pH 6.0 Ur Specific [place] 1.016 Urine Protein NEGATIVE Urine Glucose (UA) NEGATIVE Urine Ketones NEGATIVE Urine Blood NEGATIVE Urine Nitrite NEGATIVE Ur Leukocyte Esterase NEGATIVE Urine WBC (Auto) 1 Urine RBC (Auto) 1 07/09/19 07/09/19 08:25 08:25 Creatine Kinase 58 CK-MB (CK-2) 1.46 Troponin I < 0.012 Impressions: Lumbar Spine CT 07/09/19 00:00 IMPRESSION: Mild T12 compression fracture not seen on prior CT in 2018. Thoracic Spine CT 07/09/19 00:00 IMPRESSION: New superior endplate fractures T1 and T2 as new loss of height of the T12 vertebral body. T11 changes are stable. Cervical Spine CT 07/09/19 08:42 IMPRESSION: Possible acute compression fractures of the superior endplates of both T1 and T 2. No fractures of the cervical spine. Head CT 07/09/19 08:42 IMPRESSION: CHRONIC CHANGES OF ATROPHY AND MICROVASCULAR ISCHEMIA. NO ACUTE PROCESS. EVIDENCE OF ACUTE STROKE: NO. Hip X-Ray 07/09/19 08:42 IMPRESSION: Comminuted intertrochanteric fracture right hip. Assessment and Plan - Diagnosis (1) Closed intertrochanteric fracture of right hip Is this a current diagnosis for this admission?: Yes Plan: The patient is admitted to the medical floor. We supported with IV fluids. Antiemetics and analgesics as needed. Bedrest until cleared by Ortho. Orthopedics is consulted; primary management per their expertise. Heparin for DVT prophylaxis preoperatively. Will defer postoperative prophylaxis to the orthopedic surgeons recommendations. Discharge planning is consulted. (2) Thoracic compression fracture Qualifiers: Encounter type: initial encounter Thoracic vertebra fracture level: unspecified thoracic vertebra Qualified Code(s): S22.000A - Wedge compression fracture of unspecified thoracic vertebra, initial encounter for closed fracture Is this a current diagnosis for this admission?: Yes Plan: Acute T1/T2 endplate vertebra fracture and new loss of height to T12 vertebral body; likely secondary to mechanical fall at home. Analgesics as needed. Ortho is consulted. May need to consider pain management consultation as well. (3) History of CVA (cerebrovascular accident) Is this a current diagnosis for this admission?: Yes Plan: Supportive care. Fall precautions. Patient has baseline right-sided weakness and expressive aphasia. (4) Hypertension Is this a current diagnosis for this admission?: Yes Plan: Cardiac diet. We will resume home medication regiment once reconciled. - Time Time Spent with patient: 35 or more minutes Medications reviewed and adjusted accordingly: Yes Anticipated discharge: SNF - Inpatient Certification Based on my medical assessment, after consideration of the patient's comorbidities, presenting symptoms, or acuity I expect that the services needed warrant INPATIENT care.: Yes I certify that my determination is in accordance with my understanding of Medicare's requirements for reasonable and necessary INPATIENT services [42 CFR 412.3e].: Yes Medical Necessity: Need for Pain Control, Need for Surgery, Risk of Complication if Not Cared For in Hospital, Risk of Diagnosis Which Will Require Inpatient Eval/Care/Monitoring
--- NOTE | 2019-07-09 18:03 | PDOC CONSULTATION ---
Consultation Consult Date: 07/09/19 Provider Consulted: MESFIN ROSE Consult reason:: Hip Fracture History of Present Illness Admission Date/PCP: 07/09/19 11:40 Patient complains of: Fall History of Present Illness: ELIZA ALSTON is a 78 year old female with a history of being brought to the emergency room via ambulance after falling at her home. Patient was found at her home in her own urine and feces per EMS. Patient's son is involved with her care and does live at home with her however could not be in the emergency room due to inability to get a ride. What was reported was that he had heard her fall and called EMS they came and picked her up. She did report to the nursing staff that she has dementia and has had a stroke and cannot speak due to expression of a aphasia. Patient does not have any complaints she is confused in the ER per the ER staff when I spoke to them on the phone. She does complain or migrate towards pain when palpating her right hip. Past Medical History Cardiac Medical History: Reports: Hypertension Pulmonary Medical History: Reports: Chronic Obstructive Pulmonary Disease (COPD) Neurological Medical History: Reports: Ischemic CVA Psychiatric Medical History: Reports: Dementia Denies: Depression Social History Lives with: Family Smoking Status: Former Smoker Frequency of Alcohol Use: None Hx Recreational Drug Use: No Drugs: None Hx Prescription Drug Abuse: No Family History Family History: Other - Unobtainable Parental Family History Reviewed: No Children Family History Reviewed: Unknown Sibling(s) Family History Reviewed.: Unknown Medication/Allergy Home Medications: Fluticasone/Vilanterol [Breo Ellipta 200-25 Mcg INH] 1 each IH BID 09/14/18 Allergies/Adverse Reactions: No Known Allergies Allergy (Verified 08/28/18 09:46) Physical Exam Vital Signs: Temp Pulse Resp BP Pulse Ox 97.6 F 102 H 18 165/83 H 96 07/09/19 15:30 07/09/19 15:30 07/09/19 13:07 07/09/19 15:30 07/09/19 15:30 Intake & Output 07/08/19 07/09/19 07/10/19 06:59 06:59 06:59 Weight 40 kg Additonal comments: Patient is a very atretic older female who is laying in bed and does not look uncomfortable. She has interaction to the point that she will look at you periodically when talking to her but she will not acknowledge you talking to h er. She does respond to pain if you palpate her right hip area. Her right lower extremity shows no edema there is no obvious trauma to the area other than the hip appearing slightly swollen but no ecchymosis is noted. She does have good dorsal pedis and tibial pulses noted. Results Laboratory Results: 07/09/19 08:25 07/09/19 08:25 07/09/19 07/09/19 07/09/19 08:02 08:25 08:25 WBC 11.2 H RBC 4.04 Hgb 12.1 Hct 37.2 MCV 92 MCH 30.1 MCHC 32.6 RDW 13.4 Plt Count 223 Seg Neutrophils % 84.6 H Sodium 138.0 Potassium 3.7 Chloride 103 Carbon Dioxide 28 Anion Gap 7 BUN 17 Creatinine 0.64 Est GFR ( Amer) > 60 Glucose 176 H Calcium 8.9 Total Bilirubin 0.5 AST 20 Alkaline Phosphatase 110 Total Protein 6.6 Albumin 3.5 Urine Color YELLOW Urine Appearance CLEAR Urine pH 6.0 Ur Specific [place] 1.016 Urine Protein NEGATIVE Urine Glucose (UA) NEGATIVE Urine Ketones NEGATIVE Urine Blood NEGATIVE Urine Nitrite NEGATIVE Ur Leukocyte Esterase NEGATIVE Urine WBC (Auto) 1 Urine RBC (Auto) 1 07/09/19 07/09/19 08:25 08:25 Creatine Kinase 58 CK-MB (CK-2) 1.46 Troponin I < 0.012 Impressions: Lumbar Spine CT 07/09/19 00:00 IMPRESSION: Mild T12 compression fracture not seen on prior CT in 2018. Thoracic Spine CT 07/09/19 00:00 IMPRESSION: New superior endplate fractures T1 and T2 as new loss of height of the T12 vertebral body. T11 changes are stable. Cervical Spine CT 07/09/19 08:42 IMPRESSION: Possible acute compression fractures of the superior endplates of both T1 and T 2. No fractures of the cervical spine. Head CT 07/09/19 08:42 IMPRESSION: CHRONIC CHANGES OF ATROPHY AND MICROVASCULAR ISCHEMIA. NO ACUTE PROCESS. EVIDENCE OF ACUTE STROKE: NO. Hip X-Ray 07/09/19 08:42 IMPRESSION: Comminuted intertrochanteric fracture right hip. Assessment & Plan - Diagnosis (1) Closed intertrochanteric fracture of right hip Is this a current diagnosis for this admission?: Yes Plan: This is a very unfortunate 78-year-old female who was admitted to The ospitalist service and was consulted to orthopedics due to a intertrochanter fracture. I reviewed the x-rays and discussed the findings with the son of the patient. At this point patient also suffers from compression fractures and to look new on the CT scan at T1-T2 and T12 and she also has severe dementia and I am not sure where she is at her baseline. She is medically in a cardiovascular sense stable however her mental health issues are concerned. I discussed at length with the son about the risk of the procedure of doing a repair/or possibly total of his arthroplasty and the son does understand I would like for us to proceed forward. Before this however I would like to have a group session with the hospitalist and anesthesia to further evaluate the patient's overall health and ability to recover from this procedure. I did discuss this case with the surgeon Dr. Arreguin who agrees and will start following the patient tomorrow (2) Defect of endplate of vertebra Is this a current diagnosis for this admission?: Yes (3) Thoracic compression fracture Qualifiers: Encounter type: initial encounter Thoracic vertebra fracture level: unspecified thoracic vertebra Qualified Code(s): S22.000A - Wedge compression fracture of unspecified thoracic vertebra, initial encounter for closed fracture Is this a current diagnosis for this admission?: Yes (4) Dementia Qualifiers: Dementia behavioral disturbance: with behavioral disturbance (6) History of CVA (cerebrovascular accident) Is this a current diagnosis for this admission?: Yes (7) Hypertension Is this a current diagnosis for this admission?: Yes
[2019-07-09] MEDS: HEPARIN SOD (PORCINE) 5,000 UNIT/ML 1 ML VIAL SUBCUT SCH ×2 (18:53→22:05)
[2019-07-09] MEDS: KETOROLAC TROMETHAMINE INJ/PF 30 MG/1 ML SDV IV PRN (20:24)
--- NOTE | 2019-07-10 00:55 | EKG REPORT ---
SEVERITY:- ABNORMAL ECG - SINUS RHYTHM BORDERLINE RIGHT AXIS DEVIATION CONSIDER LEFT VENTRICULAR HYPERTROPHY NONSPECIFIC T ABNORMALITIES, INFERIOR LEADS : Confirmed by: Yinka Story 10-Jul-2019 00:55:01
[2019-07-10] MEDS: KETOROLAC TROMETHAMINE INJ/PF 30 MG/1 ML SDV IV PRN ×2 (04:37→21:48)
[2019-07-10] MEDS: HEPARIN SOD (PORCINE) 5,000 UNIT/ML 1 ML VIAL SUBCUT SCH ×2 (05:06→13:44)
[2019-07-10 05:46] LABS: HEMOGLOBIN 10.9 g/dL (12.0-15.5); MEAN CORPUSCULAR HEMOGLOBIN 30.9 pg (27.0-33.4); MEAN CORPUSCULAR HGB CONC 34.1 g/dL (32.0-36.0); MEAN CORPUSCULAR VOLUME 91 fl (80-97); PLATELET COUNT 195 10^3/uL (150-450); RED BLOOD COUNT 3.53 10^6/uL (3.72-5.28); RED CELL DISTRIBUTION WIDTH 12.8 % (11.5-14.0); WHITE BLOOD COUNT 10.3 10^3/uL (4.0-10.5)
[2019-07-10 06:14] LABS: ANION GAP 9 (5-19); BLOOD UREA NITROGEN 16 mg/dL (7-20); CALCIUM 8.5 mg/dL (8.4-10.2); CARBON DIOXIDE 23 mmol/L (22-30); CHLORIDE 103 mmol/L (98-107); GLUCOSE 167 mg/dL (75-110); POTASSIUM 3.5 mmol/L (3.6-5.0)
--- NOTE | 2019-07-10 07:12 | PDOC PROGRESS REPORT ---
Subjective Progress Note for:: 07/10/19 Reason For Visit: RIGHT HIP FRACTURE 78-year-old white female who was at least a household ambulator pretty fall now with a right intertrochanteric femur fracture as well as potentially some compression fractures. Physical Exam Vital Signs: Temp Pulse Resp BP Pulse Ox 37.0 C 107 H 15 151/92 H 97 07/10/19 00:03 07/10/19 00:03 07/10/19 00:03 07/10/19 00:03 07/09/19 23:37 Intake & Output 07/09/19 07/10/19 07/11/19 06:59 06:59 06:59 Intake Total 420 Output Total 475 Balance -55 Weight 43.6 kg Physical Exam: Frail appearing middle-aged white female lying in hospital bed. Patient is nonverbal. General appearance: PRESENT: mild distress Head exam: PRESENT: normocephalic Respiratory exam: PRESENT: unlabored Cardiovascular exam: PRESENT: RRR Pulses: PRESENT: +1 pedal pulses bilateral Vascular exam: PRESENT: normal capillary refill GI/Abdominal exam: PRESENT: soft Rectal exam: PRESENT: deferred Extremities exam: PRESENT: other - Right lower extremity held flexed. Leg is shortened and externally rotated. Results Laboratory Results: 07/10/19 05:17 07/10/19 05:17 07/09/19 07/09/19 07/09/19 08:02 08:25 08:25 WBC 11.2 H RBC 4.04 Hgb 12.1 Hct 37.2 MCV 92 MCH 30.1 MCHC 32.6 RDW 13.4 Plt Count 223 Seg Neutrophils % 84.6 H Sodium 138.0 Potassium 3.7 Chloride 103 Carbon Dioxide 28 Anion Gap 7 BUN 17 Creatinine 0.64 Est GFR ( Amer) > 60 Glucose 176 H Calcium 8.9 Total Bilirubin 0.5 AST 20 Alkaline Phosphatase 110 Total Protein 6.6 Albumin 3.5 Urine Color YELLOW Urine Appearance CLEAR Urine pH 6.0 Ur Specific [place] 1.016 Urine Protein NEGATIVE Urine Glucose (UA) NEGATIVE Urine Ketones NEGATIVE Urine Blood NEGATIVE Urine Nitrite NEGATIVE Ur Leukocyte Esterase NEGATIVE Urine WBC (Auto) 1 Urine RBC (Auto) 1 07/10/19 07/10/19 05:17 05:17 WBC 10.3 RBC 3.53 L Hgb 10.9 L Hct 32.0 L MCV 91 MCH 30.9 MCHC 34.1 RDW 12.8 Plt Count 195 Seg Neutrophils % Sodium 135.2 L Potassium 3.5 L Chloride 103 Carbon Dioxide 23 Anion Gap 9 BUN 16 Creatinine 0.62 Est GFR ( Amer) > 60 Glucose 167 H Calcium 8.5 Total Bilirubin AST Alkaline Phosphatase Total Protein Albumin Urine Color Urine Appearance Urine pH Ur Specific [place] Urine Protein Urine Glucose (UA) Urine Ketones Urine Blood Urine Nitrite Ur Leukocyte Esterase Urine WBC (Auto) Urine RBC (Auto) 07/09/19 07/09/19 08:25 08:25 Creatine Kinase 58 CK-MB (CK-2) 1.46 Troponin I < 0.012 Impressions: Lumbar Spine CT 07/09/19 00:00 IMPRESSION: Mild T12 compression fracture not seen on prior CT in 2018. Thoracic Spine CT 07/09/19 00:00 IMPRESSION: New superior endplate fractures T1 and T2 as new loss of height of the T12 vertebral body. T11 changes are stable. Cervical Spine CT 07/09/19 08:42 IMPRESSION: Possible acute compression fractures of the superior endplates of both T1 and T 2. No fractures of the cervical spine. Head CT 07/09/19 08:42 IMPRESSION: CHRONIC CHANGES OF ATROPHY AND MICROVASCULAR ISCHEMIA. NO ACUTE PROCESS. EVIDENCE OF ACUTE STROKE: NO. Hip X-Ray 07/09/19 08:42 IMPRESSION: Comminuted intertrochanteric fracture right hip. Status: Imported from PACS Assessment & Plan - Diagnosis (1) Closed intertrochanteric fracture of right hip Is this a current diagnosis for this admission?: Yes Plan: Plan for open reduction internal fixation of choice anesthesia today. Anticipate the patient can be mobilized and weightbearing as tolerated basis immediately postoperatively. Anticipate the need for long-term facility placement.
[2019-07-10] MEDS ORDERED: FLUTICASONE/VILANTEROL 200-25 MCG/DOSE IH SCH (10:00)
[2019-07-10] MEDS ORDERED: CEFAZOLIN SODIUM 2 GM in DEXTROSE 5%-WATER 100 ML IV PRN (11:07)
[2019-07-10] MEDS ORDERED: TRANEXAMIC ACID INJ/PF 1,000 MG/10 ML SDV IV PRN (11:07)
[2019-07-10] MEDS ORDERED: RINGERS SOLUTION,LACTATED 1,000 ML IV PRN (11:11)
[2019-07-10] MEDS: DOCUSATE SODIUM 100 MG CAPSULE PO SCH (11:53)
[2019-07-10] MEDS: METOPROLOL SUCCINATE 25 MG TAB.SR.24H PO SCH (11:59)
--- NOTE | 2019-07-10 12:54 | ADVANCED CARE ---
- Diagnosis (1) Closed intertrochanteric fracture of right hip Diagnosis Current: Yes (2) Thoracic compression fracture Diagnosis Current: Yes (3) History of CVA (cerebrovascular accident) Diagnosis Current: Yes (4) Hypertension Diagnosis Current: Yes Attendance: Patient's son, Mikael Cope, and patient (though nonverbal/noncommunicative at baseline). Resuscitation Status: Full Code Discussion: The patient's chronic and acute medical conditions were reviewed. Discussed the patient's baseline mental and functional status. Patient's son, Mikael, whom the patient lives with reports that she is independently ambulatory at baseline. He states that she is supposed to use a walker but does not due to cognitive difficulty. He reports that her prior stroke resulted in right-sided weakness and she was right-hand dominant. Therefore, she does require assistance with ADLs and occasionally assistance with meals. He does state that if he does not place the food in front of her, the patient will forget to eat and drink. He reports that she is nonverbal at baseline; will occasionally utter partial sentences, however, frequently out of context and is not able to respond or communicate nonverbally or follow directions. We discussed that the patient has a moderate risk of cardiovascular incident occurring during the intraoperative period. We also discussed her fragile neuro status and pulmonary function. Did express to the patient that there are families in similar situations that choose a nonoperative route followed by palliative care/hospice care and will of orthopedic intervention. Patient's son indicates that he spoke with his siblings (one who lives locally but is unable to come to the hospital, and two who live out of state) and all were in agreement with pursuing surgery. He tells me that he is the POA and will provide the paperwork when he returns to the hospital tomorrow. Mikael requests to move forward with orthopedic repair of the hip fracture. He confirms that the patient is a full code. We did discuss the high risk of rib fractures, necessity of intubation/life support, and my opinion that we would likely be unsuccessful even with aggressive interventions. He again confirms the patient is a FULL CODE and requests surgery. Care Planning Goals: FULL CODE Family requests Orthopedic repair of hip fracture. Time Spent: 30 min
--- NOTE | 2019-07-10 12:58 | PDOC PROGRESS REPORT ---
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 The patient was seen on morning rounds. She was seen again briefly this afternoon when her son was present. She was found resting in bed on supplemental oxygen. She was noted to be fidgety; interpreted as pain. Nursing is at bedside to provide analgesic medications. The patient is nonverbal at baseline and so ROS is unobtainable. Long discussion had with the patient's son regarding operative risk; please see separate ACP note. Nursing indicates cloudy, foul-smelling urine and request urinalysis. Reason For Visit: RIGHT HIP FRACTURE Physical Exam Vital Signs: Temp Pulse Resp BP Pulse Ox 98.2 F 104 H 16 157/79 H 94 07/10/19 11:00 07/10/19 11:00 07/10/19 11:00 07/10/19 11:00 07/10/19 11:00 Intake & Output 07/09/19 07/10/19 07/11/19 06:59 06:59 06:59 Intake Total 420 Output Total 475 Balance -55 Weight 43.6 kg 43.6 kg General appearance: PRESENT: no acute distress, well-developed, other - Ca chectic Head exam: PRESENT: atraumatic, normocephalic Eye exam: PRESENT: conjunctiva pink, EOMI, PERRLA. ABSENT: scleral icterus Ear exam: PRESENT: normal external ear exam Mouth exam: PRESENT: moist, tongue midline Neck exam: ABSENT: carotid bruit, JVD, lymphadenopathy, thyromegaly Respiratory exam: PRESENT: clear to auscultation anthony, symmetrical, unlabored. ABSENT: rales, rhonchi, wheezes Cardiovascular exam: PRESENT: RRR, +S1, +S2, tachycardia. ABSENT: diastolic murmur, rubs, systolic murmur Pulses: PRESENT: +1 pedal pulses bilateral Vascular exam: PRESENT: normal capillary refill GI/Abdominal exam: PRESENT: normal bowel sounds, soft. ABSENT: distended, guarding, mass, organolmegaly, rebound, tenderness Rectal exam: PRESENT: deferred Gentrourinary exam: PRESENT: indwelling catheter Extremities exam: PRESENT: other - RLE shortened and externally rotated. A BSENT: calf tenderness, clubbing, full ROM, pedal edema Neurological exam: PRESENT: alert, awake, CN II-XII grossly intact, aphasic, other - At baseline per son. ABSENT: oriented to person, oriented to place, oriented to time, oriented to situation, motor sensory deficit Skin exam: PRESENT: dry, intact, warm. ABSENT: cyanosis, rash Results Laboratory Results: 07/10/19 05:17 07/10/19 05:17 07/10/19 07/10/19 05:17 05:17 WBC 10.3 RBC 3.53 L Hgb 10.9 L Hct 32.0 L MCV 91 MCH 30.9 MCHC 34.1 RDW 12.8 Plt Count 195 Sodium 135.2 L Potassium 3.5 L Chloride 103 Carbon Dioxide 23 Anion Gap 9 BUN 16 Creatinine 0.62 Est GFR ( Amer) > 60 Glucose 167 H Calcium 8.5 07/09/19 07/09/19 08:25 08:25 Creatine Kinase 58 CK-MB (CK-2) 1.46 Troponin I < 0.012 Impressions: Lumbar Spine CT 07/09/19 00:00 IMPRESSION: Mild T12 compression fracture not seen on prior CT in 2018. Thoracic Spine CT 07/09/19 00:00 IMPRESSION: New superior endplate fractures T1 and T2 as new loss of height of the T12 vertebral body. T11 changes are stable. Cervical Spine CT 07/09/19 08:42 IMPRESSION: Possible acute compression fractures of the superior endplates of both T1 and T 2. No fractures of the cervical spine. Head CT 07/09/19 08:42 IMPRESSION: CHRONIC CHANGES OF ATROPHY AND MICROVASCULAR ISCHEMIA. NO ACUTE PROCESS. EVIDENCE OF ACUTE STROKE: NO. Hip X-Ray 07/09/19 08:42 IMPRESSION: Comminuted intertrochanteric fracture right hip. Assessment and Plan - Diagnosis (1) Closed intertrochanteric fracture of right hip Is this a current diagnosis for this admission?: Yes Plan: The patient is admitted to the medical floor. We supported with IV fluids. Antiemetics and analgesics as needed. Bedrest until cleared by Ortho. Orthopedics is consulted; primary management per their expertise. Heparin for DVT prophylaxis preoperatively. Will defer postoperative prophylaxis to the orthopedic surgeons recommendations. Discharge planning is consulted. (2) Thoracic compression fracture Qualifiers: Encounter type: initial encounter Thoracic vertebra fracture level: unspecified thoracic vertebra Qualified Code(s): S22.000A - Wedge compression fracture of unspecified thoracic vertebra, initial encounter for closed fracture Is this a current diagnosis for this admission?: Yes Plan: Acute T1/T2 endplate vertebra fracture and new loss of height to T12 vertebral body; likely secondary to mechanical fall at home. Analgesics as needed. Ortho is consulted. May need to consider pain management consultation as well. (3) History of CVA (cerebrovascular accident) Is this a current diagnosis for this admission?: Yes Plan: Supportive care. Fall precautions. Patient has baseline right-sided weakness and expressive aphasia. (4) Hypertension Is this a current diagnosis for this admission?: Yes Plan: Cardiac diet. Patient son reports that she has not been on any medications recently for management of her hypertension. Hypertension and tachycardia today may be related to pain; management with IV Toradol and morphine as needed. Toprol XL 25 mg to begin postoperatively if continued hypertension. - Time Time Spent with patient: 15-24 minutes Medications reviewed and adjusted accordingly: Yes Anticipated discharge: SNF
[2019-07-10] MEDS ORDERED: FENTANYL CITRATE INJ/PF 100 MCG/2 ML AMPUL ONE (14:15)
[2019-07-10] MEDS ORDERED: PROPOFOL INJ 200 MG/20 ML VIAL IV ONE (14:16)
[2019-07-10] MEDS ORDERED: MIDAZOLAM 2 MG/2 ML INJ ONE (14:16)
[2019-07-10] MEDS ORDERED: DEXAMETHASONE SOD PHOSPHATE INJ 4 MG/1 ML VIAL ONE (14:16)
[2019-07-10] MEDS ORDERED: ONDANSETRON HCL INJ/PF 4 MG/2 ML SDV ONE (14:16)
[2019-07-10] MEDS ORDERED: TRANEXAMIC ACID INJ/PF 1,000 MG/10 ML SDV ONE (14:17)
[2019-07-10] MEDS ORDERED: FENTANYL CITRATE INJ/PF 100 MCG/2 ML AMPUL IV PRN ×3 (15:43)
[2019-07-10] MEDS ORDERED: DIPHENHYDRAMINE HCL 50 MG/ML VIAL IV PRN (15:43)
[2019-07-10] MEDS ORDERED: ONDANSETRON HCL INJ/PF 4 MG/2 ML SDV IV PRN (15:43)
[2019-07-10] MEDS ORDERED: PROMETHAZINE HCL INJ 25 MG/1 ML VIAL IV PRN ×2 (15:43)
[2019-07-10] MEDS ORDERED: MEPERIDINE HCL/PF INJ 25 MG/1 ML DISP.SYRIN IV PRN (15:43)
[2019-07-10 17:47] LABS: APPEARANCE,URINE CLOUDY; BILIRUBIN,URINE NEGATIVE (NEGATIVE); COLOR,URINE YELLOW; GLUCOSE, URINE NEGATIVE (NEGATIVE); KETONES,URINE NEGATIVE (NEGATIVE); LEUKOCYTE ESTERASE,URINE TRACE (NEGATIVE); NITRITE,URINE NEGATIVE (NEGATIVE); PROTEIN,URINE NEGATIVE (NEGATIVE); URINE SPECIFIC GRAVITY 1.013
--- NOTE | 2019-07-10 18:33 | RADIOLOGY REPORT (SQ) ---
EXAM DESCRIPTION: NO CHG FLUORO; HIP RIGHT AP/LATERAL COMPLETED DATE/TIME: 07/10/2019 6:05 pm REASON FOR STUDY: HIP NAILING COMPARISON: None. FLUOROSCOPY TIME: 0.6 minutes 2 Images saved to PACS LIMITATIONS: None. PROCEDURE: Hip nailing. FINDINGS: Images from fluoro document placement of a long cannulated screw in the femoral neck and a medullary ivy in the femur. IMPRESSION: Hip nailing. Refer to operative note further information. COMMENT: PQRS 6045F: Fluoroscopy time of the procedure is documented in the report. TECHNICAL DOCUMENTATION: JOB ID: [id number] [employer]- All Rights Reserved Reading location - IP/workstation name: [email or web address]
--- NOTE | 2019-07-10 18:33 | RADIOLOGY REPORT (SQ) ---
EXAM DESCRIPTION: NO CHG FLUORO; HIP RIGHT AP/LATERAL COMPLETED DATE/TIME: 07/10/2019 6:05 pm REASON FOR STUDY: HIP NAILING COMPARISON: None. FLUOROSCOPY TIME: 0.6 minutes 2 Images saved to PACS LIMITATIONS: None. PROCEDURE: Hip nailing. FINDINGS: Images from fluoro document placement of a long cannulated screw in the femoral neck and a medullary ivy in the femur. IMPRESSION: Hip nailing. Refer to operative note further information. COMMENT: PQRS 6045F: Fluoroscopy time of the procedure is documented in the report. TECHNICAL DOCUMENTATION: JOB ID: [id number] [employer]- All Rights Reserved Reading location - IP/workstation name: [email or web address]
[2019-07-10] MEDS: IPRATROPIUM/ALBUTEROL 0.5-2.5 MG/3 ML AMPUL NEB SCH (20:46)
[2019-07-10] MEDS: CEFAZOLIN SODIUM 2 GM in DEXTROSE 5%-WATER 100 ML IV SCH (21:49)
[2019-07-11] MEDS: RINGERS SOLUTION,LACTATED 1,000 ML IV PRN ×2 (02:30→14:31)
[2019-07-11 03:34] LABS: ABSOLUTE LYMPHOCYTES (AUTO) 0.6 10^3/uL (0.5-4.7); ABSOLUTE MONOCYTES (AUTO) 0.8 10^3/uL (0.1-1.4); ABSOLUTE NEUT (AUTO) 7.1 10^3/uL (1.7-8.2); HEMATOCRIT 29.2 % (36.0-47.0); HEMOGLOBIN 9.8 g/dL (12.0-15.5); LYMPHOCYTES % (AUTO) 6.5 % (13-45); MEAN CORPUSCULAR HEMOGLOBIN 30.7 pg (27.0-33.4); MEAN CORPUSCULAR HGB CONC 33.6 g/dL (32.0-36.0); MEAN CORPUSCULAR VOLUME 91 fl (80-97); MONOCYTES % (AUTO) 9.8 % (3-13); PLATELET COUNT 171 10^3/uL (150-450); RED CELL DISTRIBUTION WIDTH 13.4 % (11.5-14.0); SEGMENTED NEUTROPHILS % (AUTO) 83.7 % (42-78); TOTAL CELLS COUNTED % (AUTO) 100 %; WHITE BLOOD COUNT 8.5 10^3/uL (4.0-10.5)
[2019-07-11 03:53] LABS: ANION GAP 9 (5-19); BLOOD UREA NITROGEN 18 mg/dL (7-20); CALCIUM 8.4 mg/dL (8.4-10.2); CARBON DIOXIDE 23 mmol/L (22-30); CHLORIDE 103 mmol/L (98-107); GLUCOSE 143 mg/dL (75-110); POTASSIUM 3.8 mmol/L (3.6-5.0)
[2019-07-11] MEDS ORDERED: CEFAZOLIN INJ 1 GM VIAL ONE (05:18)
[2019-07-11] MEDS: CEFAZOLIN SODIUM 2 GM in DEXTROSE 5%-WATER 100 ML IV SCH (05:28)
--- NOTE | 2019-07-11 07:08 | PDOC PROGRESS REPORT ---
Subjective Progress Note for:: 07/11/19 Reason For Visit: RIGHT HIP FRACTURE 78-year-old white female postop day 1 status post ORIF of a right intratrochanteric femur fracture. Patient resting comfortably in bed. Proximal dressing has been reinforced. Physical Exam Vital Signs: Temp Pulse Resp BP Pulse Ox 37.1 C 88 16 124/69 99 07/10/19 23:54 07/10/19 23:54 07/10/19 23:54 07/10/19 23:54 07/10/19 23:54 Intake & Output 07/10/19 07/11/19 07/12/19 06:59 06:59 06:59 Intake Total 420 1300 Output Total 475 1060 Balance -55 240 Weight 43.6 kg 44.1 kg General appearance: PRESENT: no acute distress Head exam: PRESENT: normocephalic Respiratory exam: PRESENT: unlabored Cardiovascular exam: PRESENT: RRR Pulses: PRESENT: +1 pedal pulses bilateral Vascular exam: PRESENT: normal capillary refill GI/Abdominal exam: PRESENT: soft Rectal exam: PRESENT: deferred Extremities exam: PRESENT: other - Leg lengths are equal. There is brisk capillary refill in digits. Skin exam: PRESENT: dry, intact, warm. ABSENT: cyanosis, rash Results Laboratory Results: 07/11/19 03:27 07/11/19 03:27 07/10/19 07/11/19 07/11/19 17:00 03:27 03:27 WBC 8.5 RBC 3.20 L Hgb 9.8 L Hct 29.2 L MCV 91 MCH 30.7 MCHC 33.6 RDW 13.4 Plt Count 171 Seg Neutrophils % 83.7 H Sodium 134.9 L Potassium 3.8 Chloride 103 Carbon Dioxide 23 Anion Gap 9 BUN 18 Creatinine 0.67 Est GFR ( Amer) > 60 Glucose 143 H Calcium 8.4 Urine Color YELLOW Urine Appearance CLOUDY Urine pH 7.0 Ur Specific [place] 1.013 Urine Protein NEGATIVE Urine Glucose (UA) NEGATIVE Urine Ketones NEGATIVE Urine Blood SMALL H Urine Nitrite NEGATIVE Ur Leukocyte Esterase TRACE H Urine WBC (Auto) 40 Urine RBC (Auto) 1 07/09/19 07/09/19 08:25 08:25 Creatine Kinase 58 CK-MB (CK-2) 1.46 Troponin I < 0.012 Impressions: Lumbar Spine CT 07/09/19 00:00 IMPRESSION: Mild T12 compression fracture not seen on prior CT in 2018. Thoracic Spine CT 07/09/19 00:00 IMPRESSION: New superior endplate fractures T1 and T2 as new loss of height of the T12 vertebral body. T11 changes are stable. Cervical Spine CT 07/09/19 08:42 IMPRESSION: Possible acute compression fractures of the superior endplates of both T1 and T 2. No fractures of the cervical spine. Head CT 07/09/19 08:42 IMPRESSION: CHRONIC CHANGES OF ATROPHY AND MICROVASCULAR ISCHEMIA. NO ACUTE PROCESS. EVIDENCE OF ACUTE STROKE: NO. Hip X-Ray 07/09/19 08:42 IMPRESSION: Comminuted intertrochanteric fracture right hip. Fluoroscopy 07/10/19 00:00 IMPRESSION: Hip nailing. Refer to operative note further information. Hip/Pelvis X-Ray 07/10/19 00:00 IMPRESSION: Hip nailing. Refer to operative note further information. Status: Imported from PACS Assessment & Plan - Diagnosis (1) Closed intertrochanteric fracture of right hip Is this a current diagnosis for this admission?: Yes Plan: Mobilized with physical therapy weightbearing as tolerated. This will probably be limited to transfers. Anticipate the need for shelter facility placement.
[2019-07-11] MEDS: IPRATROPIUM/ALBUTEROL 0.5-2.5 MG/3 ML AMPUL NEB SCH ×2 (08:14→19:57)
[2019-07-11] MEDS: METOPROLOL SUCCINATE 25 MG TAB.SR.24H PO SCH (09:58)
[2019-07-11] MEDS: HYDROCODONE/ACETAMINOPHEN 5-325 MG TABLET PO PRN ×2 (09:58→17:30)
[2019-07-11] MEDS: ASPIRIN 81 MG TABLET, ENT COATED PO SCH (09:58)
[2019-07-11] MEDS: DOCUSATE SODIUM 100 MG CAPSULE PO SCH (09:58)
--- NOTE | 2019-07-11 12:55 | PDOC PROGRESS REPORT ---
Subjective Progress Note for:: 07/11/19 Subjective:: 78 year old female with a known past medical history of remote CVA resulting in total aphasia and right-sided weakness, hypertension, COPD, and dementia who was admitted 07/09/2019 for right intertrochanteric hip fracture and acute thoracic compression fractures due to fall. The patient was seen on morning rounds. She was seen again briefly this afternoon when her son was present. She was found resting in bed on supplemental oxygen. She was noted to be fidgety; interpreted as pain. Nursing is at bedside to provide analgesic medications. The patient is nonverbal at baseline and so ROS is unobtainable. Long discussion had with the patient's son regarding operative risk; please see separate ACP note. Nursing indicates cloudy, foul-smelling urine and request urinalysis. 07/11/[id number]-lphm-old female with history of CVA involving the right side of the body if he is here, right-sided weakness hypertension COPD admitted with fall and right hip fracture. Status post surgery was done. Waiting for placement. The nurse is concerned about her right shoulder right elbow swelling plan to do the x-rays at bedside. Patient is unable to express any planes. Family members at bedside they are okay with rehab placement. Reason For Visit: RIGHT HIP FRACTURE Physical Exam Vital Signs: Temp Pulse Resp BP Pulse Ox 98.7 F 77 18 124/69 96 07/10/19 23:54 07/11/19 08:14 07/11/19 08:14 07/10/19 23:54 07/11/19 08:14 Intake & Output 07/10/19 07/11/19 07/12/19 06:59 06:59 06:59 Intake Total 420 1300 Output Total 475 1060 Balance -55 240 Weight 43.6 kg 44.1 kg General appearance: PRESENT: no acute distress, thin Head exam: PRESENT: atraumatic Eye exam: PRESENT: PERRLA Mouth exam: PRESENT: moist, tongue midline Teeth exam: PRESENT: poor dentation Neck exam: ABSENT: carotid bruit, JVD, lymphadenopathy, thyromegaly Respiratory exam: PRESENT: decreased breath sounds Cardiovascular exam: PRESENT: RRR. ABSENT: diastolic murmur, rubs, systolic murmur GI/Abdominal exam: PRESENT: normal bowel sounds, soft. ABSENT: distended, guarding, mass, organolmegaly, rebound, tenderness Rectal exam: PRESENT: deferred Extremities exam: PRESENT: full ROM. ABSENT: calf tenderness, clubbing, pedal edema Neurological exam: PRESENT: awake, aphasic, other - She has right-sided weakness. Results Laboratory Results: 07/11/19 03:27 07/11/19 03:27 07/10/19 07/11/19 07/11/19 17:00 03:27 03:27 WBC 8.5 RBC 3.20 L Hgb 9.8 L Hct 29.2 L MCV 91 MCH 30.7 MCHC 33.6 RDW 13.4 Plt Count 171 Seg Neutrophils % 83.7 H Sodium 134.9 L Potassium 3.8 Chloride 103 Carbon Dioxide 23 Anion Gap 9 BUN 18 Creatinine 0.67 Est GFR ( Amer) > 60 Glucose 143 H Calcium 8.4 Urine Color YELLOW Urine Appearance CLOUDY Urine pH 7.0 Ur Specific [place] 1.013 Urine Protein NEGATIVE Urine Glucose (UA) NEGATIVE Urine Ketones NEGATIVE Urine Blood SMALL H Urine Nitrite NEGATIVE Ur Leukocyte Esterase TRACE H Urine WBC (Auto) 40 Urine RBC (Auto) 1 07/09/19 07/09/19 08:25 08:25 Creatine Kinase 58 CK-MB (CK-2) 1.46 Troponin I < 0.012 Impressions: Lumbar Spine CT 07/09/19 00:00 IMPRESSION: Mild T12 compression fracture not seen on prior CT in 2018. Thoracic Spine CT 07/09/19 00:00 IMPRESSION: New superior endplate fractures T1 and T2 as new loss of height of the T12 vertebral body. T11 changes are stable. Cervical Spine CT 07/09/19 08:42 IMPRESSION: Possible acute compression fractures of the superior endplates of both T1 and T 2. No fractures of the cervical spine. Head CT 07/09/19 08:42 IMPRESSION: CHRONIC CHANGES OF ATROPHY AND MICROVASCULAR ISCHEMIA. NO ACUTE PROCESS. EVIDENCE OF ACUTE STROKE: NO. Hip X-Ray 07/09/19 08:42 IMPRESSION: Comminuted intertrochanteric fracture right hip. Fluoroscopy 07/10/19 00:00 IMPRESSION: Hip nailing. Refer to operative note further information. Hip/Pelvis X-Ray 07/10/19 00:00 IMPRESSION: Hip nailing. Refer to operative note further information. Assessment and Plan - Diagnosis (1) Closed intertrochanteric fracture of right hip Is this a current diagnosis for this admission?: Yes Plan: The patient is admitted to the medical floor. We supported with IV fluids. Antiemetics and analgesics as needed. Bedrest until cleared by Ortho. Orthopedics is consulted; primary management per their expertise. Heparin for DVT prophylaxis preoperatively. Will defer postoperative prophylaxis to the orthopedic surgeons recommendations. Discharge planning is consulted. 07/11/2019-patient admitted with closed intertrochanteric fracture of the right hip. Status post surgery. Physical therapy was requested. Family agreed for rehab placement. (2) History of CVA (cerebrovascular accident) Is this a current diagnosis for this admission?: Yes Plan: Supportive care. Fall precautions. Patient has baseline right-sided weakness and expressive aphasia. 07/11/2019-patient has history of right-sided weakness secondary to stroke and expressive aphasia. Plan is to continue to provide supportive care. (3) Dementia Qualifiers: Dementia behavioral disturbance: with behavioral disturbance Is this a current diagnosis for this admission?: No Plan: 07/11/2019-patient has history of advanced dementia. plan is to continue provide supportive care. (4) Hypertension Is this a current diagnosis for this admission?: Yes Plan: Cardiac diet. Patient son reports that she has not been on any medications recently for management of her hypertension. Hypertension and tachycardia today may be related to pain; management with IV Toradol and morphine as needed. Toprol XL 25 mg to begin postoperatively if continued hypertension. 10/2018-patient has history of hypertension blood pressure today is 124/60. Sta ble. Plan is to continue the present management. (5) Thoracic compression fracture Qualifiers: Encounter type: initial encounter Thoracic vertebra fracture level: unspecified thoracic vertebra Qualified Code(s): S22.000A - Wedge compression fracture of unspecified thoracic vertebra, initial encounter for closed fracture Is this a current diagnosis for this admission?: Yes Plan: Acute T1/T2 endplate vertebra fracture and new loss of height to T12 vertebral body; likely secondary to mechanical fall at home. Analgesics as needed. Ortho is consulted. May need to consider pain management consultation as well. (6) Hypokalemia Is this a current diagnosis for this admission?: No Plan: 07/11/2019-patient serum potassium is 3.8 hypokalemia is corrected.
[2019-07-11] MEDS: KETOROLAC TROMETHAMINE INJ/PF 30 MG/1 ML SDV IV PRN (14:26)
--- NOTE | 2019-07-11 14:51 | RADIOLOGY REPORT (SQ) ---
EXAM DESCRIPTION: HUMERUS RIGHT COMPLETED DATE/TIME: 07/11/2019 2:29 pm REASON FOR STUDY: pain COMPARISON: None. NUMBER OF VIEWS: Two views. TECHNIQUE: Two radiographic images were acquired of the right humerus to include elbow and shoulder in at least one projection. LIMITATIONS: None. FINDINGS: MINERALIZATION: Osteopenia. BONES: Acute displaced fracture through the surgical neck of the humerus there is no other fracture. SOFT TISSUES: No radiopaque foreign body OTHER: No other significant finding. IMPRESSION: Acute displaced fracture through the surgical neck of the humerus. TECHNICAL DOCUMENTATION: JOB ID: [id number] [employer]- All Rights Reserved Reading location - IP/workstation name: [email or web address]
[2019-07-12] MEDS: RINGERS SOLUTION,LACTATED 1,000 ML IV PRN ×2 (03:08→23:57)
[2019-07-12] MEDS: KETOROLAC TROMETHAMINE INJ/PF 30 MG/1 ML SDV IV PRN (03:13)
--- NOTE | 2019-07-12 07:19 | PDOC PROGRESS REPORT ---
Subjective Progress Note for:: 07/12/19 Reason For Visit: RIGHT HIP FRACTURE 78-year-old white female now postop day 2 status post ORIF of a right proximal femur fracture and a recently recognized displaced right humeral surgical neck fracture. Physical Exam Vital Signs: Temp Pulse Resp BP Pulse Ox 36.9 C 100 16 138/66 H 93 07/12/19 00:00 07/12/19 00:00 07/12/19 00:00 07/12/19 00:00 07/12/19 00:00 Intake & Output 07/11/19 07/12/19 07/13/19 06:59 06:59 06:59 Intake Total 1300 2850 Output Total 1060 750 Balance 240 2100 Weight 44.1 kg 41.9 kg Physical Exam: Patient lying in bed, a phasic but in no clear distress General appearance: PRESENT: no acute distress Head exam: PRESENT: normocephalic Respiratory exam: PRESENT: unlabored Cardiovascular exam: PRESENT: RRR Vascular exam: PRESENT: normal capillary refill - Yesterday GI/Abdominal exam: PRESENT: soft Rectal exam: PRESENT: deferred - And also notes a soft tissue site Extremities exam: PRESENT: other - Right proximal arm with ecchymosis and tenderness. Right lower extremity dressings dry and intact. Leg lengths are equal. Results Laboratory Results: 07/11/19 03:27 07/11/19 03:27 07/09/19 07/09/19 08:25 08:25 Creatine Kinase 58 CK-MB (CK-2) 1.46 Troponin I < 0.012 Impressions: Lumbar Spine CT 07/09/19 00:00 IMPRESSION: Mild T12 compression fracture not seen on prior CT in 2018. Thoracic Spine CT 07/09/19 00:00 IMPRESSION: New superior endplate fractures T1 and T2 as new loss of height of the T12 vertebral body. T11 changes are stable. Cervical Spine CT 07/09/19 08:42 IMPRESSION: Possible acute compression fractures of the superior endplates of both T1 and T 2. No fractures of the cervical spine. Head CT 07/09/19 08:42 IMPRESSION: CHRONIC CHANGES OF ATROPHY AND MICROVASCULAR ISCHEMIA. NO ACUTE PROCESS. EVIDENCE OF ACUTE STROKE: NO. Hip X-Ray 07/09/19 08:42 IMPRESSION: Comminuted intertrochanteric fracture right hip. Fluoroscopy 07/10/19 00:00 IMPRESSION: Hip nailing. Refer to operative note further information. Hip/Pelvis X-Ray 07/10/19 00:00 IMPRESSION: Hip nailing. Refer to operative note further information. Humerus X-Ray 07/11/19 00:00 IMPRESSION: Acute displaced fracture through the surgical neck of the humerus. Status: Imported from PACS Assessment & Plan - Diagnosis (1) Closed intertrochanteric fracture of right hip Is this a current diagnosis for this admission?: Yes Plan: Continue to mobilize and weightbearing as tolerated basis. Probably need to think about a platform walker because of the right humerus fracture (2) Right humeral fracture Qualifiers: Encounter type: initial encounter Humerus Location: surgical neck Fracture type: closed Fracture morphology: 2-part Fracture alignment: displaced Qualified Code(s): S42.221A - 2-part displaced fracture of surgical neck of right humerus, initial encounter for closed fracture Is this a current diagnosis for this admission?: Yes Plan: Plan to treat nonoperatively. Shoulder sling has been ordered. This will limit the patient's ability to rehabilitate. - Time Time Spent with patient: 15-24 minutes Anticipated discharge: SNF Within: when bed available
[2019-07-12] MEDS: METOPROLOL SUCCINATE 25 MG TAB.SR.24H PO SCH (08:38)
[2019-07-12] MEDS: ASPIRIN 81 MG TABLET, ENT COATED PO SCH (08:38)
[2019-07-12] MEDS: HYDROCODONE/ACETAMINOPHEN 5-325 MG TABLET PO PRN ×2 (08:38→23:57)
[2019-07-12] MEDS: DOCUSATE SODIUM 100 MG CAPSULE PO SCH (08:38)
[2019-07-12] MEDS: IPRATROPIUM/ALBUTEROL 0.5-2.5 MG/3 ML AMPUL NEB SCH ×2 (09:06→21:10)
[2019-07-12 09:20] LABS: ABSOLUTE EOSINOPHILS # (AUTO) 0.1 10^3/uL (0.0-0.6); ABSOLUTE MONOCYTES (AUTO) 0.9 10^3/uL (0.1-1.4); ABSOLUTE NEUT (AUTO) 8.6 10^3/uL (1.7-8.2); BASOPHILS % (AUTO) 0.2 % (0-2); EOSINOPHILS % (AUTO) 1.3 % (0-6); HEMATOCRIT 27.2 % (36.0-47.0); HEMOGLOBIN 9.2 g/dL (12.0-15.5); LYMPHOCYTES % (AUTO) 8.9 % (13-45); MEAN CORPUSCULAR HEMOGLOBIN 30.9 pg (27.0-33.4); MEAN CORPUSCULAR HGB CONC 33.9 g/dL (32.0-36.0); MEAN CORPUSCULAR VOLUME 91 fl (80-97); MONOCYTES % (AUTO) 8.4 % (3-13); PLATELET COUNT 194 10^3/uL (150-450); RED BLOOD COUNT 2.99 10^6/uL (3.72-5.28); RED CELL DISTRIBUTION WIDTH 13.3 % (11.5-14.0); SEGMENTED NEUTROPHILS % (AUTO) 81.2 % (42-78); TOTAL CELLS COUNTED % (AUTO) 100 %; WHITE BLOOD COUNT 10.7 10^3/uL (4.0-10.5)
[2019-07-12 09:37] LABS: ALBUMIN 2.8 g/dL (3.5-5.0); ALKALINE PHOSPHATASE 74 U/L (38-126); ANION GAP 7 (5-19); ASPARTATE AMINO TRANSFERASE 30 U/L (14-36); BILIRUBIN,DIRECT 0.1 mg/dL (0.0-0.4); BILIRUBIN,TOTAL 0.8 mg/dL (0.2-1.3); BLOOD UREA NITROGEN 16 mg/dL (7-20); CALCIUM 8.5 mg/dL (8.4-10.2); CARBON DIOXIDE 26 mmol/L (22-30); CHLORIDE 102 mmol/L (98-107); GLUCOSE 113 mg/dL (75-110); POTASSIUM 3.8 mmol/L (3.6-5.0); TOTAL PROTEIN 5.8 g/dL (6.3-8.2)
--- NOTE | 2019-07-12 11:19 | PDOC PROGRESS REPORT ---
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 The patient was seen on morning rounds. She was seen again briefly this afternoon when her son was present. She was found resting in bed on supplemental oxygen. She was noted to be fidgety; interpreted as pain. Nursing is at bedside to provide analgesic medications. The patient is nonverbal at baseline and so ROS is unobtainable. Long discussion had with the patient's son regarding operative risk; please see separate ACP note. Nursing indicates cloudy, foul-smelling urine and request urinalysis. 07/11/[id number]-loge-old female with history of CVA involving the right side of the body if he is here, right-sided weakness hypertension COPD admitted with fall and right hip fracture. Status post surgery was done. Waiting for placement. The nurse is concerned about her right shoulder right elbow swelling plan to do the x-rays at bedside. Patient is unable to express any planes. Family members at bedside they are okay with rehab placement. 07/12/[id number]-pzst-old female with history of CVA with right-sided weakness admitted with fall right hip fracture status post ORIF done. Found to have acute right humeral neck fracture orthopedics recommendation is conservative management. Patient at this time is full code. Waiting for placement. No acute events in the Reason For Visit: RIGHT HIP FRACTURE Physical Exam Vital Signs: Temp Pulse Resp BP Pulse Ox 98.9 F 99 18 132/63 H 88 L 07/12/19 08:00 07/12/19 09:08 07/12/19 09:08 07/12/19 08:00 07/12/19 09:08 Intake & Output 07/11/19 07/12/19 07/13/19 06:59 06:59 06:59 Intake Total 1300 2970 Output Total 1060 1550 Balance 240 1420 Weight 44.1 kg 41.9 kg General appearance: PRESENT: no acute distress, cooperative, thin Head exam: PRESENT: atraumatic Eye exam: PRESENT: PERRLA Mouth exam: PRESENT: moist, tongue midline Teeth exam: PRESENT: poor dentation Neck exam: ABSENT: carotid bruit, JVD, lymphadenopathy, thyromegaly Respiratory exam: PRESENT: clear to auscultation anthony. ABSENT: rales, rhonchi, wheezes GI/Abdominal exam: PRESENT: normal bowel sounds, soft. ABSENT: distended, guarding, mass, organolmegaly, rebound, tenderness Rectal exam: PRESENT: deferred Extremities exam: PRESENT: full ROM. ABSENT: calf tenderness, clubbing, pedal edema Neurological exam: PRESENT: alert, awake, oriented to person, oriented to place, oriented to time, oriented to situation, CN II-XII grossly intact. ABSENT: m otor sensory deficit Psychiatric exam: PRESENT: appropriate affect, normal mood. ABSENT: homicidal ideation, suicidal ideation Results Laboratory Results: 07/12/19 08:48 07/12/19 08:48 07/12/19 07/12/19 08:48 08:48 WBC 10.7 H RBC 2.99 L Hgb 9.2 L Hct 27.2 L MCV 91 MCH 30.9 MCHC 33.9 RDW 13.3 Plt Count 194 Seg Neutrophils % 81.2 H Sodium 135.3 L Potassium 3.8 Chloride 102 Carbon Dioxide 26 Anion Gap 7 BUN 16 Creatinine 0.66 Est GFR ( Amer) > 60 Glucose 113 H Calcium 8.5 Magnesium 1.6 Total Bilirubin 0.8 AST 30 Alkaline Phosphatase 74 Total Protein 5.8 L Albumin 2.8 L 07/10/19 17:00 Boateng Catheter Urine Culture - Final Escherichia Coli 07/09/19 07/09/19 08:25 08:25 Creatine Kinase 58 CK-MB (CK-2) 1.46 Troponin I < 0.012 Impressions: Lumbar Spine CT 07/09/19 00:00 IMPRESSION: Mild T12 compression fracture not seen on prior CT in 2018. Thoracic Spine CT 07/09/19 00:00 IMPRESSION: New superior endplate fractures T1 and T2 as new loss of height of the T12 vertebral body. T11 changes are stable. Cervical Spine CT 07/09/19 08:42 IMPRESSION: Possible acute compression fractures of the superior endplates of both T1 and T 2. No fractures of the cervical spine. Head CT 07/09/19 08:42 IMPRESSION: CHRONIC CHANGES OF ATROPHY AND MICROVASCULAR ISCHEMIA. NO ACUTE PROCESS. EVIDENCE OF ACUTE STROKE: NO. Hip X-Ray 07/09/19 08:42 IMPRESSION: Comminuted intertrochanteric fracture right hip. Fluoroscopy 07/10/19 00:00 IMPRESSION: Hip nailing. Refer to operative note further information. Hip/Pelvis X-Ray 07/10/19 00:00 IMPRESSION: Hip nailing. Refer to operative note further information. Humerus X-Ray 07/11/19 00:00 IMPRESSION: Acute displaced fracture through the surgical neck of the humerus. Assessment and Plan - Diagnosis (1) Closed intertrochanteric fracture of right hip Is this a current diagnosis for this admission?: Yes (2) History of CVA (cerebrovascular accident) Is this a current diagnosis for this admission?: Yes (3) Dementia Qualifiers: Dementia behavioral disturbance: with behavioral disturbance Is this a current diagnosis for this admission?: No (4) Hypertension Is this a current diagnosis for this admission?: Yes (5) Thoracic compression fracture Qualifiers: Encounter type: initial encounter Thoracic vertebra fracture level: unspecified thoracic vertebra Qualified Code(s): S22.000A - Wedge compression fracture of unspecified thoracic vertebra, initial encounter for closed fracture Is this a current diagnosis for this admission?: Yes (6) Hypokalemia Is this a current diagnosis for this admission?: No (7) Right humeral fracture Is this a current diagnosis for this admission?: Yes - Plan Summary Summary: - Diagnosis (1) Closed intertrochanteric fracture of right hip Is this a current diagnosis for this admission?: Yes Plan: The patient is admitted to the medical floor. We supported with IV fluids. Antiemetics and analgesics as needed. Bedrest until cleared by Ortho. Orthopedics is consulted; primary management per their expertise. Heparin for DVT prophylaxis preoperatively. Will defer postoperative prophylaxis to the orthopedic surgeons recommendations. Discharge planning is consulted. 07/11/2019-patient admitted with closed intertrochanteric fracture of the right hip. Status post surgery. Physical therapy was requested. Family agreed for rehab placement. 07/12/2019-patient admitted with right hip fracture status post ORIF waiting for placement. (2) History of CVA (cerebrovascular accident) Is this a current diagnosis for this admission?: Yes Plan: Supportive care. Fall precautions. Patient has baseline right-sided weakness and expressive aphasia. 07/11/2019-patient has history of right-sided weakness secondary to stroke and expressive aphasia. Plan is to continue to provide supportive care. (3) Dementia Qualifiers: Dementia behavioral disturbance: with behavioral disturbance Is this a current diagnosis for this admission?: No Plan: 07/11/2019-patient has history of advanced dementia. plan is to continue provide supportive care. (4) Hypertension Is this a current diagnosis for this admission?: Yes Plan: Cardiac diet. Patient son reports that she has not been on any medications recently for management of her hypertension. Hypertension and tachycardia today may be related to pain; management with IV Toradol and morphine as needed. Toprol XL 25 mg to begin postoperatively if continued hypertension. 07/12/2019-patient has history of hypertension blood pressure today is 124/60. Stable. Plan is to continue the present management. (5) Thoracic compression fracture Qualifiers: Encounter type: initial encounter Thoracic vertebra fracture level: unspecified thoracic vertebra Qualified Code(s): S22.000A - Wedge compression fracture of unspecified thoracic vertebra, initial encounter for closed fracture Is this a current diagnosis for this admission?: Yes Plan: Acute T1/T2 endplate vertebra fracture and new loss of height to T12 vertebral body; likely secondary to mechanical fall at home. Analgesics as needed. Ortho is consulted. May need to consider pain management consultation as well. (6) Hypokalemia Is this a current diagnosis for this admission?: No Plan: 07/11/2019-patient serum potassium is 3.8 hypokalemia is corrected. 7-right humeral neck fracture found on the x-ray done yesterday. Conservative management recommended by the orthopedic team.
[2019-07-13] MEDS: KETOROLAC TROMETHAMINE INJ/PF 30 MG/1 ML SDV IV PRN (03:19)
[2019-07-13] MEDS: HYDROCODONE/ACETAMINOPHEN 5-325 MG TABLET PO PRN (08:45)
[2019-07-13] MEDS: IPRATROPIUM/ALBUTEROL 0.5-2.5 MG/3 ML AMPUL NEB SCH (08:47)
[2019-07-13] MEDS ORDERED: PROMETHAZINE HCL INJ 25 MG/1 ML VIAL IV PRN (09:00)
[2019-07-13] MEDS ORDERED: ONDANSETRON HCL INJ/PF 4 MG/2 ML SDV IV PRN (09:00)
[2019-07-13] MEDS: ASPIRIN 81 MG TABLET, ENT COATED PO SCH (09:35)
[2019-07-13] MEDS: DOCUSATE SODIUM 100 MG CAPSULE PO SCH (09:35)
[2019-07-13] MEDS: METOPROLOL SUCCINATE 25 MG TAB.SR.24H PO SCH (09:39)
[2019-07-13] MEDS: RINGERS SOLUTION,LACTATED 1,000 ML IV PRN (09:41)
--- NOTE | 2019-07-13 11:43 | PDOC DISCHARGE SUMMARY ---
Impression - Admit/DC Date/PCP Admission Date/Primary Care Provider: 07/09/19 11:40 Discharge Date: 07/13/19 - Discharge Diagnosis (1) Closed intertrochanteric fracture of right hip Is this a current diagnosis for this admission?: Yes (2) History of CVA (cerebrovascular accident) Is this a current diagnosis for this admission?: Yes (3) Dementia Is this a current diagnosis for this admission?: No (4) Hypertension Is this a current diagnosis for this admission?: Yes (5) Thoracic compression fracture Is this a current diagnosis for this admission?: Yes (6) Hypokalemia Is this a current diagnosis for this admission?: No (7) Right humeral fracture Is this a current diagnosis for this admission?: Yes - Assessment Summary: - Diagnosis (1) Closed intertrochanteric fracture of right hip Is this a current diagnosis for this admission?: Yes Plan: The patient is admitted to the medical floor. We supported with IV fluids. Antiemetics and analgesics as needed. Bedrest until cleared by Ortho. Orthopedics is consulted; primary management per their expertise. Heparin for DVT prophylaxis preoperatively. Will defer postoperative prophylaxis to the orthopedic surgeons recommendations. Discharge planning is consulted. 07/11/2019-patient admitted with closed intertrochanteric fracture of the right hip. Status post surgery. Physical therapy was requested. Family agreed for rehab placement. 07/12/2019-patient admitted with right hip fracture status post ORIF waiting for placement. 07/13/2019-patient admitted with history of fall and right hip fracture status post ORIF she got a bed in the long-term care facility she is going today. (2) History of CVA (cerebrovascular accident) Is this a current diagnosis for this admission?: Yes Plan: Supportive care. Fall precautions. Patient has baseline right-sided weakness and expressive aphasia. 07/11/2019-patient has history of right-sided weakness secondary to stroke and expressive aphasia. Plan is to continue to provide supportive care. 07/13/2019-patient has history of CVA with right-sided weakness and expressive aphasia. Stable. (3) Dementia Qualifiers: Dementia behavioral disturbance: with behavioral disturbance Is this a current diagnosis for this admission?: No Plan: 07/11/2019-patient has history of advanced dementia. plan is to continue provide supportive care. 12/2018-patient has advanced dementia deployed in the supportive care during the hospital stay. (4) Hypertension Is this a current diagnosis for this admission?: Yes Plan: Cardiac diet. Patient son reports that she has not been on any medications recently for management of her hypertension. Hypertension and tachycardia today may be related to pain; management with IV Toradol and morphine as needed. Toprol XL 25 mg to begin postoperatively if continued hypertension. 07/12/2019-patient has history of hypertension blood pressure today is 124/60. Stable. Plan is to continue the present management. 07/13/2019-patient blood pressure today is 150/72. Relatively stable. Plan is to continue the present management at rehab facility. (5) Thoracic compression fracture Qualifiers: Encounter type: initial encounter Thoracic vertebra fracture level: unspecified thoracic vertebra Qualified Code(s): S22.000A - Wedge compression fracture of unspecified thoracic vertebra, initial encounter for closed fracture Is this a current diagnosis for this admission?: Yes Plan: Acute T1/T2 endplate vertebra fracture and new loss of height to T12 vertebral body; likely secondary to mechanical fall at home. Analgesics as needed. Ortho is consulted. May need to consider pain management consultation as well. 07/13/2019-patient has a thoracic compression fracture new loss of height in T12 Ortho was consulted in the hospital patient may need consultation with the pain management as an outpatient. (6) Hypokalemia Is this a current diagnosis for this admission?: No Plan: 07/11/2019-patient serum potassium is 3.8 hypokalemia is corrected. 7-right humeral neck fracture found on the x-ray done yesterday. Conservative management recommended by the orthopedic team. 07/13/2019-patient serum potassium today 3.8 hypokalemia is resolved. 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 The patient was seen on morning rounds. She was seen again briefly this afternoon when her son was present. She was found resting in bed on supplemental oxygen. She was noted to be fidgety; interpreted as pain. Nursing is at bedside to provide analgesic medications. The patient is nonverbal at baseline and so ROS is unobtainable. Long discussion had with the patient's son regarding operative risk; please see separate ACP note. Nursing indicates cloudy, foul-smelling urine and request urinalysis. 07/11/[id number]-wjtd-old female with history of CVA involving the right side of the body if he is here, right-sided weakness hypertension COPD admitted with fall and right hip fracture. Status post surgery was done. Waiting for placement. The nurse is concerned about her right shoulder right elbow swelling plan to do the x-rays at bedside. Patient is unable to express any planes. Family members at bedside they are okay with rehab placement. 07/12/[id number]-shdl-old female with history of CVA with right-sided weakness admitted with fall right hip fracture status post ORIF done. Found to have acute right humeral neck fracture orthopedics recommendation is conservative management. Patient at this time is full code. Waiting for placement. No acute events in the the last 24 hrs Physical Exam Vital Signs: Temp Pulse Resp BP Pulse Ox 98.4 F 107 H 20 170/86 H 95 07/13/19 08:00 07/13/19 08:47 07/13/19 08:47 07/13/19 08:00 07/13/19 08:47 Intake & Output 07/12/19 07/13/19 07/14/19 06:59 06:59 06:59 Intake Total 2970 2080 1000 Output Total 1550 1850 Balance 2394 988 8235 Weight 41.9 kg 48.3 kg General appearance: PRESENT: no acute distress, thin Head exam: PRESENT: atraumatic Eye exam: PRESENT: PERRLA Mouth exam: PRESENT: dry mucosa Teeth exam: PRESENT: poor dentation Respiratory exam: PRESENT: clear to auscultation anthony. ABSENT: rales, rhonchi, wheezes Cardiovascular exam: PRESENT: RRR. ABSENT: diastolic murmur, rubs, systolic murmur GI/Abdominal exam: PRESENT: normal bowel sounds, soft. ABSENT: distended, guarding, mass, organolmegaly, rebound, tenderness Rectal exam: PRESENT: deferred Extremities exam: PRESENT: full ROM. ABSENT: calf tenderness, clubbing, pedal edema Neurological exam: PRESENT: alert, awake, oriented to person, oriented to place, oriented to time, oriented to situation, CN II-XII grossly intact. ABSENT: motor sensory deficit Psychiatric exam: PRESENT: appropriate affect, normal mood. ABSENT: homicidal ideation, suicidal ideation Skin exam: PRESENT: dry, intact, warm. ABSENT: cyanosis, rash Results Laboratory Results: WBC 10.7 10^3/uL (4.0-10.5) H 07/12/19 08:48 RBC 2.99 10^6/uL (3.72-5.28) L 07/12/19 08:48 Hgb 9.2 g/dL (12.0-15.5) L 07/12/19 08:48 Hct 27.2 % (36.0-47.0) L 07/12/19 08:48 MCV 91 fl (80-97) 07/12/19 08:48 MCH 30.9 pg (27.0-33.4) 07/12/19 08:48 MCHC 33.9 g/dL (32.0-36.0) 07/12/19 08:48 RDW 13.3 % (11.5-14.0) 07/12/19 08:48 Plt Count 194 10^3/uL (150-450) 07/12/19 08:48 Lymph % (Auto) 8.9 % (13-45) L 07/12/19 08:48 [place] % (Auto) 8.4 % (3-13) 07/12/19 08:48 Eos % (Auto) 1.3 % (0-6) 07/12/19 08:48 Baso % (Auto) 0.2 % (0-2) 07/12/19 08:48 Absolute Neuts (auto) 8.6 10^3/uL (1.7-8.2) H 07/12/19 08:48 Absolute Lymphs (auto) 1.0 10^3/uL (0.5-4.7) 07/12/19 08:48 Absolute Monos (auto) 0.9 10^3/uL (0.1-1.4) 07/12/19 08:48 Absolute Eos (auto) 0.1 10^3/uL (0.0-0.6) 07/12/19 08:48 Absolute Basos (auto) 0.0 10^3/uL (0.0-0.2) 07/12/19 08:48 Seg Neutrophils % 81.2 % (42-78) H 07/12/19 08:48 PT 14.2 SEC (11.4-15.4) 07/09/19 08:25 INR 1.10 07/09/19 08:25 APTT 31.8 SEC (23.5-35.8) 07/09/19 08:25 Sodium 135.3 mmol/L (137-145) L 07/12/19 08:48 Potassium 3.8 mmol/L (3.6-5.0) 07/12/19 08:48 Chloride 102 mmol/L (98-107) 07/12/19 08:48 Carbon Dioxide 26 mmol/L (22-30) 07/12/19 08:48 Anion Gap 7 (5-19) 07/12/19 08:48 BUN 16 mg/dL (7-20) 07/12/19 08:48 Creatinine 0.66 mg/dL (0.52-1.25) 07/12/19 08:48 Est GFR ( Amer) > 60 (>60) 07/12/19 08:48 Est GFR (MDRD) Non-Af > 60 (>60) 07/12/19 08:48 Glucose 113 mg/dL (75-110) H 07/12/19 08:48 Calcium 8.5 mg/dL (8.4-10.2) 07/12/19 08:48 Magnesium 1.6 mg/dL (1.6-2.3) 07/12/19 08:48 Total Bilirubin 0.8 mg/dL (0.2-1.3) 07/12/19 08:48 Direct Bilirubin 0.1 mg/dL (0.0-0.4) 07/12/19 08:48 Neonat Total Bilirubin Not Reportable 07/12/19 08:48 Neonat Direct Bilirubin Not Reportable 07/12/19 08:48 Neonat Indirect Bili Not Reportable 07/12/19 08:48 AST 30 U/L (14-36) 07/12/19 08:48 ALT 12 U/L (<35) 07/12/19 08:48 Alkaline Phosphatase 74 U/L (38-126) 07/12/19 08:48 Creatine Kinase 58 U/L (30-135) 07/09/19 08:25 CK-MB (CK-2) 1.46 ng/mL (<4.55) 07/09/19 08:25 Troponin I < 0.012 ng/mL 07/09/19 08:25 Total Protein 5.8 g/dL (6.3-8.2) L 07/12/19 08:48 Albumin 2.8 g/dL (3.5-5.0) L 07/12/19 08:48 Urine Color YELLOW 07/10/19 17:00 Urine Appearance CLOUDY 07/10/19 17:00 Urine pH 7.0 (5.0-9.0) 07/10/19 17:00 Ur Specific [place] 1.013 07/10/19 17:00 Urine Protein NEGATIVE mg/dL (NEGATIVE) 07/10/19 17:00 Urine Glucose (UA) NEGATIVE mg/dL (NEGATIVE) 07/10/19 17:00 Urine Ketones NEGATIVE mg/dL (NEGATIVE) 07/10/19 17:00 Urine Blood SMALL (NEGATIVE) H 07/10/19 17:00 Urine Nitrite NEGATIVE (NEGATIVE) 07/10/19 17:00 Urine Bilirubin NEGATIVE (NEGATIVE) 07/10/19 17:00 Urine Urobilinogen 2.0 mg/dL (<2.0) H 07/10/19 17:00 Ur Leukocyte Esterase TRACE (NEGATIVE) H 07/10/19 17:00 Urine WBC (Auto) 40 /HPF 07/10/19 17:00 Urine RBC (Auto) 1 /HPF 07/10/19 17:00 U Hyaline Cast (Auto) 1 /LPF 07/09/19 08:02 Urine Bacteria (Auto) 1+ /HPF 07/10/19 17:00 Urine Mucus (Auto) RARE /LPF 07/10/19 17:00 Urine Ascorbic Acid NEGATIVE (NEGATIVE) 07/10/19 17:00 07/09/19 08:25 CK-MB (CK-2) 1.46 Troponin I < 0.012 Impressions: Lumbar Spine CT 07/09/19 00:00 IMPRESSION: Mild T12 compression fracture not seen on prior CT in 2018. Thoracic Spine CT 07/09/19 00:00 IMPRESSION: New superior endplate fractures T1 and T2 as new loss of height of the T12 vertebral body. T11 changes are stable. Cervical Spine CT 07/09/19 08:42 IMPRESSION: Possible acute compression fractures of the superior endplates of both T1 and T 2. No fractures of the cervical spine. Head CT 07/09/19 08:42 IMPRESSION: CHRONIC CHANGES OF ATROPHY AND MICROVASCULAR ISCHEMIA. NO ACUTE PROCESS. EVIDENCE OF ACUTE STROKE: NO. Hip X-Ray 07/09/19 08:42 IMPRESSION: Comminuted intertrochanteric fracture right hip. Fluoroscopy 07/10/19 00:00 IMPRESSION: Hip nailing. Refer to operative note further information. Hip/Pelvis X-Ray 07/10/19 00:00 IMPRESSION: Hip nailing. Refer to operative note further information. Humerus X-Ray 07/11/19 00:00 IMPRESSION: Acute displaced fracture through the surgical neck of the humerus. Plan Plan of Treatment: [facility] is going to long-term care facility today. Time Spent: Greater than 30 Minutes Stroke Is this a Stroke Patient?: No Acute Heart Failure - Is this a Heart Failure Patient?: No
[2019-07-13 12:07] VITALS: BP 126/66
--- NOTE | 2019-07-13 13:06 | PDOC TRANSFER SUMMARY ---
Impression - Admit/DC Date/PCP Admission Date/Primary Care Provider: 07/09/19 11:40 Discharge Date: 07/13/19 - Discharge Diagnosis (1) Closed intertrochanteric fracture of right hip Is this a current diagnosis for this admission?: Yes (2) History of CVA (cerebrovascular accident) Is this a current diagnosis for this admission?: Yes (3) Dementia Is this a current diagnosis for this admission?: No (4) Hypertension Is this a current diagnosis for this admission?: Yes (5) Thoracic compression fracture Is this a current diagnosis for this admission?: Yes (6) Hypokalemia Is this a current diagnosis for this admission?: No (7) Right humeral fracture Is this a current diagnosis for this admission?: Yes - Assessment Summary: - Diagnosis (1) Closed intertrochanteric fracture of right hip Is this a current diagnosis for this admission?: Yes Plan: The patient is admitted to the medical floor. We supported with IV fluids. Antiemetics and analgesics as needed. Bedrest until cleared by Ortho. Orthopedics is consulted; primary management per their expertise. Heparin for DVT prophylaxis preoperatively. Will defer postoperative prophylaxis to the orthopedic surgeons recommendations. Discharge planning is consulted. 07/11/2019-patient admitted with closed intertrochanteric fracture of the right hip. Status post surgery. Physical therapy was requested. Family agreed for rehab placement. 07/12/2019-patient admitted with right hip fracture status post ORIF waiting for placement. 07/13/2019-patient admitted with history of fall and right hip fracture status post ORIF she got a bed in the long-term care facility she is going today. (2) History of CVA (cerebrovascular accident) Is this a current diagnosis for this admission?: Yes Plan: Supportive care. Fall precautions. Patient has baseline right-sided weakness and expressive aphasia. 07/11/2019-patient has history of right-sided weakness secondary to stroke and expressive aphasia. Plan is to continue to provide supportive care. 07/13/2019-patient has history of CVA with right-sided weakness and expressive aphasia. Stable. (3) Dementia Qualifiers: Dementia behavioral disturbance: with behavioral disturbance Is this a current diagnosis for this admission?: No Plan: 07/11/2019-patient has history of advanced dementia. plan is to continue provide supportive care. 12/2018-patient has advanced dementia deployed in the supportive care during the hospital stay. (4) Hypertension Is this a current diagnosis for this admission?: Yes Plan: Cardiac diet. Patient son reports that she has not been on any medications recently for management of her hypertension. Hypertension and tachycardia today may be related to pain; management with IV Toradol and morphine as needed. Toprol XL 25 mg to begin postoperatively if continued hypertension. 07/12/2019-patient has history of hypertension blood pressure today is 124/60. Stable. Plan is to continue the present management. 07/13/2019-patient blood pressure today is 150/72. Relatively stable. Plan is to continue the present management at rehab facility. (5) Thoracic compression fracture Qualifiers: Encounter type: initial encounter Thoracic vertebra fracture level: unspecified thoracic vertebra Qualified Code(s): S22.000A - Wedge compression fracture of unspecified thoracic vertebra, initial encounter for closed fracture Is this a current diagnosis for this admission?: Yes Plan: Acute T1/T2 endplate vertebra fracture and new loss of height to T12 vertebral body; likely secondary to mechanical fall at home. Analgesics as needed. Ortho is consulted. May need to consider pain management consultation as well. 07/13/2019-patient has a thoracic compression fracture new loss of height in T12 Ortho was consulted in the hospital patient may need consultation with the pain management as an outpatient. (6) Hypokalemia Is this a current diagnosis for this admission?: No Plan: 07/11/2019-patient serum potassium is 3.8 hypokalemia is corrected. 7-right humeral neck fracture found on the x-ray done yesterday. Conservative management recommended by the orthopedic team. 07/13/2019-patient serum potassium today 3.8 hypokalemia is resolved. - Additional Information Resuscitation Status: Full Code Discharge Activity: Bedrest Referrals: [facility] [Outside] JHON QUIÑONES MD [ACTIVE STAFF] - 07/20/19 8:45 am Home Medications: Fluticasone/Vilanterol [Breo Ellipta 200-25 Mcg INH] 1 each IH BID 09/14/18 Hydrocodone/Acetaminophen [[place] 5-325 mg Tablet] 1 tab PO Q6HP PRN #10 tablet 07/13/19 History of Present Illiness History of Present Illness: ELIZA ALSTON is a 78 year old female 78 year old female with a known past medical history of remote CVA resulting in total aphasia and right-sided weakness, hypertension, COPD, and dementia who was admitted 07/09/2019 for right intertrochanteric hip fracture and acute thoracic compression fractures due to fall. 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 The patient was seen on morning rounds. She was seen again briefly this afternoon when her son was present. She was found resting in bed on supplemental oxygen. She was noted to be fidgety; interpreted as pain. Nursing is at bedside to provide analgesic medications. The patient is nonverbal at baseline and so ROS is unobtainable. Long discussion had with the patient's son regarding operative risk; please see separate ACP note. Nursing indicates cloudy, foul-smelling urine and request urinalysis. 07/11/[id number]-vann-old female with history of CVA involving the right side of the body if he is here, right-sided weakness hypertension COPD admitted with fall and right hip fracture. Status post surgery was done. Waiting for placement. The nurse is concerned about her right shoulder right elbow swelling plan to do the x-rays at bedside. Patient is unable to express any planes. Family members at bedside they are okay with rehab placement. 07/12/[id number]-izub-old female with history of CVA with right-sided weakness admitted with fall right hip fracture status post ORIF done. Found to have acute right humeral neck fracture orthopedics recommendation is conservative management. Patient at this time is full code. Waiting for placement. No acute events in the the last 24 hrs Physical Exam Vital Signs: Temp Pulse Resp BP Pulse Ox 97.4 F 99 24 H 126/66 H 99 07/13/19 12:00 07/13/19 12:00 07/13/19 12:00 07/13/19 12:00 07/13/19 12:00 Intake & Output 07/12/19 07/13/19 07/14/19 06:59 06:59 06:59 Intake Total 2970 2080 1000 Output Total 1550 1850 Balance 3084 263 3279 Weight 41.9 kg 48.3 kg General appearance: PRESENT: no acute distress, disheveled, thin Head exam: PRESENT: atraumatic Eye exam: PRESENT: PERRLA Mouth exam: PRESENT: dry mucosa Teeth exam: PRESENT: poor dentation Neck exam: ABSENT: carotid bruit, JVD, lymphadenopathy, thyromegaly Respiratory exam: PRESENT: decreased breath sounds Cardiovascular exam: PRESENT: RRR. ABSENT: diastolic murmur, rubs, systolic murmur GI/Abdominal exam: PRESENT: normal bowel sounds, soft. ABSENT: distended, guarding, mass, organolmegaly, rebound, tenderness Rectal exam: PRESENT: deferred Extremities exam: PRESENT: full ROM. ABSENT: calf tenderness, clubbing, pedal edema Neurological exam: PRESENT: alert, awake, oriented to person, oriented to place, oriented to time, oriented to situation, CN II-XII grossly intact. ABSENT: motor sensory deficit Psychiatric exam: PRESENT: appropriate affect, normal mood. ABSENT: homicidal ideation, suicidal ideation Results Laboratory Results: WBC 10.7 10^3/uL (4.0-10.5) H 07/12/19 08:48 RBC 2.99 10^6/uL (3.72-5.28) L 07/12/19 08:48 Hgb 9.2 g/dL (12.0-15.5) L 07/12/19 08:48 Hct 27.2 % (36.0-47.0) L 07/12/19 08:48 MCV 91 fl (80-97) 07/12/19 08:48 MCH 30.9 pg (27.0-33.4) 07/12/19 08:48 MCHC 33.9 g/dL (32.0-36.0) 07/12/19 08:48 RDW 13.3 % (11.5-14.0) 07/12/19 08:48 Plt Count 194 10^3/uL (150-450) 07/12/19 08:48 Lymph % (Auto) 8.9 % (13-45) L 07/12/19 08:48 [place] % (Auto) 8.4 % (3-13) 07/12/19 08:48 Eos % (Auto) 1.3 % (0-6) 07/12/19 08:48 Baso % (Auto) 0.2 % (0-2) 07/12/19 08:48 Absolute Neuts (auto) 8.6 10^3/uL (1.7-8.2) H 07/12/19 08:48 Absolute Lymphs (auto) 1.0 10^3/uL (0.5-4.7) 07/12/19 08:48 Absolute Monos (auto) 0.9 10^3/uL (0.1-1.4) 07/12/19 08:48 Absolute Eos (auto) 0.1 10^3/uL (0.0-0.6) 07/12/19 08:48 Absolute Basos (auto) 0.0 10^3/uL (0.0-0.2) 07/12/19 08:48 Seg Neutrophils % 81.2 % (42-78) H 07/12/19 08:48 PT 14.2 SEC (11.4-15.4) 07/09/19 08:25 INR 1.10 07/09/19 08:25 APTT 31.8 SEC (23.5-35.8) 07/09/19 08:25 Sodium 135.3 mmol/L (137-145) L 07/12/19 08:48 Potassium 3.8 mmol/L (3.6-5.0) 07/12/19 08:48 Chloride 102 mmol/L (98-107) 07/12/19 08:48 Carbon Dioxide 26 mmol/L (22-30) 07/12/19 08:48 Anion Gap 7 (5-19) 07/12/19 08:48 BUN 16 mg/dL (7-20) 07/12/19 08:48 Creatinine 0.66 mg/dL (0.52-1.25) 07/12/19 08:48 Est GFR ( Amer) > 60 (>60) 07/12/19 08:48 Est GFR (MDRD) Non-Af > 60 (>60) 07/12/19 08:48 Glucose 113 mg/dL (75-110) H 07/12/19 08:48 Calcium 8.5 mg/dL (8.4-10.2) 07/12/19 08:48 Magnesium 1.6 mg/dL (1.6-2.3) 07/12/19 08:48 Total Bilirubin 0.8 mg/dL (0.2-1.3) 07/12/19 08:48 Direct Bilirubin 0.1 mg/dL (0.0-0.4) 07/12/19 08:48 Neonat Total Bilirubin Not Reportable 07/12/19 08:48 Neonat Direct Bilirubin Not Reportable 07/12/19 08:48 Neonat Indirect Bili Not Reportable 07/12/19 08:48 AST 30 U/L (14-36) 07/12/19 08:48 ALT 12 U/L (<35) 07/12/19 08:48 Alkaline Phosphatase 74 U/L (38-126) 07/12/19 08:48 Creatine Kinase 58 U/L (30-135) 07/09/19 08:25 CK-MB (CK-2) 1.46 ng/mL (<4.55) 07/09/19 08:25 Troponin I < 0.012 ng/mL 07/09/19 08:25 Total Protein 5.8 g/dL (6.3-8.2) L 07/12/19 08:48 Albumin 2.8 g/dL (3.5-5.0) L 07/12/19 08:48 Urine Color YELLOW 07/10/19 17:00 Urine Appearance CLOUDY 07/10/19 17:00 Urine pH 7.0 (5.0-9.0) 07/10/19 17:00 Ur Specific [place] 1.013 07/10/19 17:00 Urine Protein NEGATIVE mg/dL (NEGATIVE) 07/10/19 17:00 Urine Glucose (UA) NEGATIVE mg/dL (NEGATIVE) 07/10/19 17:00 Urine Ketones NEGATIVE mg/dL (NEGATIVE) 07/10/19 17:00 Urine Blood SMALL (NEGATIVE) H 07/10/19 17:00 Urine Nitrite NEGATIVE (NEGATIVE) 07/10/19 17:00 Urine Bilirubin NEGATIVE (NEGATIVE) 07/10/19 17:00 Urine Urobilinogen 2.0 mg/dL (<2.0) H 07/10/19 17:00 Ur Leukocyte Esterase TRACE (NEGATIVE) H 07/10/19 17:00 Urine WBC (Auto) 40 /HPF 07/10/19 17:00 Urine RBC (Auto) 1 /HPF 07/10/19 17:00 U Hyaline Cast (Auto) 1 /LPF 07/09/19 08:02 Urine Bacteria (Auto) 1+ /HPF 07/10/19 17:00 Urine Mucus (Auto) RARE /LPF 07/10/19 17:00 Urine Ascorbic Acid NEGATIVE (NEGATIVE) 07/10/19 17:00 07/09/19 08:25 CK-MB (CK-2) 1.46 Troponin I < 0.012 Impressions: Lumbar Spine CT 07/09/19 00:00 IMPRESSION: Mild T12 compression fracture not seen on prior CT in 2018. Thoracic Spine CT 07/09/19 00:00 IMPRESSION: New superior endplate fractures T1 and T2 as new loss of height of the T12 vertebral body. T11 changes are stable. Cervical Spine CT 07/09/19 08:42 IMPRESSION: Possible acute compression fractures of the superior endplates of both T1 and T 2. No fractures of the cervical spine. Head CT 07/09/19 08:42 IMPRESSION: CHRONIC CHANGES OF ATROPHY AND MICROVASCULAR ISCHEMIA. NO ACUTE PROCESS. EVIDENCE OF ACUTE STROKE: NO. Hip X-Ray 07/09/19 08:42 IMPRESSION: Comminuted intertrochanteric fracture right hip. Fluoroscopy 07/10/19 00:00 IMPRESSION: Hip nailing. Refer to operative note further information. Hip/Pelvis X-Ray 07/10/19 00:00 IMPRESSION: Hip nailing. Refer to operative note further information. Humerus X-Ray 07/11/19 00:00 IMPRESSION: Acute displaced fracture through the surgical neck of the humerus. Plan Plan of Treatment: [facility] is going to long-term care facility today. Stroke Is this a Stroke Patient?: No Acute Heart Failure - Is this a Heart Failure Patient?: No
--- NOTE | 2019-07-19 12:04 | Operative Report ---
Operative Report DATE OF SURGERY: 07/10/19 PREOPERATIVE DIAGNOSIS: Right intertrochanteric femur fracture OPERATION: Open reduction internal fixation right intertrochanteric femur fracture SURGEON: JHON QUIÑONES ANESTHESIA: LMAC ESTIMATED BLOOD LOSS: 50 PROCEDURE: With the patient supine on the operative table the right lower extremity is manipulated fluoroscopic guidance to effect near anatomic reduction of the intertrochanteric femur fracture. Subsequently the limb is prepped and draped in sterile fashion.. A pin is placed percutaneously into the proximal femoral medullary metadiaphysis through the greater trochanter. A combined reamer was then used to fashion a bone opening. Next a short gamma 3 Quail nail, 11 mm x 125 degrees is advanced through the cortical opening to an appropriate depth for the proximal interlock. Proximal interlock is placed under fluoroscopic guidance as is the distal interlock. The wounds irrigated. The closure was interrupted Vicryl. The skin is stapled. A sterile compressive dressing was applied. The patient's return to the PACU in satisfactory condition.
== END 2019-07-13 14:07 | DRG 481 ==
LOC: ER 07:02 → EH 11:40 → 5 14:50
PROVIDERS: ADMIT Internal Medicine; ATTEND Internal Medicine
PROC: 0QS634Z Reposition Right Upper Femur with Internal Fixation Device, Percutaneous Approach (ICD-10-PCS; principal; 2019-07-10 14:30)
DX: S72.141A Displaced intertrochanteric fracture of right femur, initial encounter for closed fracture (principal); S22.010A Wedge compression fracture of first thoracic vertebra, initial encounter for closed fracture; S22.020A Wedge compression fracture of second thoracic vertebra, initial encounter for closed fracture; S22.080A Wedge compression fracture of T11-T12 vertebra, initial encounter for closed fracture; S42.211A Unspecified displaced fracture of surgical neck of right humerus, initial encounter for closed fracture; I69.351 Hemiplegia and hemiparesis following cerebral infarction affecting right dominant side; F03.90 Unspecified dementia, unspecified severity, without behavioral disturbance, psychotic disturbance, mood disturbance, and anxiety; I10 Essential (primary) hypertension; E87.6 Hypokalemia; W18.30XA Fall on same level, unspecified, initial encounter; J44.9 Chronic obstructive pulmonary disease, unspecified; Y92.018 Other place in single-family (private) house as the place of occurrence of the external cause; I69.320 Aphasia following cerebral infarction; Z79.51 Long term (current) use of inhaled steroids; Z87.891 Personal history of nicotine dependence
CPT/HCPCS: 01230; 36415; 51701; 51702; 70450; 72125; 72128; 72131; 73522; 80048; 80053; 81001; 82550; 82553; 83735; 84484; 85025; 85027; 85610; 85730; 87086; 87088; 87186; 93005; 93010; 94640; 96374; 99285; C1713; J0690; J1100; J1644; J1885; J2250; J2270; J2405; J2704; J3010; J3490; J7030; J7060; J7120; J7620

== ENCOUNTER 2019-07-14 04:47 | Inpatient (IN) | payer MEDICARE ==
[2019-07-14 05:18] LABS: ABSOLUTE BASOPHILS # (AUTO) 0.1 10^3/uL (0.0-0.2); ABSOLUTE EOSINOPHILS # (AUTO) 0.2 10^3/uL (0.0-0.6); ABSOLUTE LYMPHOCYTES (AUTO) 1.1 10^3/uL (0.5-4.7); ABSOLUTE MONOCYTES (AUTO) 1.1 10^3/uL (0.1-1.4); ABSOLUTE NEUT (AUTO) 15.1 10^3/uL (1.7-8.2); BASOPHILS % (AUTO) 0.3 % (0-2); EOSINOPHILS % (AUTO) 1.3 % (0-6); HEMATOCRIT 31.1 % (36.0-47.0); HEMOGLOBIN 10.2 g/dL (12.0-15.5); LYMPHOCYTES % (AUTO) 6.4 % (13-45); MEAN CORPUSCULAR HGB CONC 32.9 g/dL (32.0-36.0); MEAN CORPUSCULAR VOLUME 91 fl (80-97); MONOCYTES % (AUTO) 6.2 % (3-13); PLATELET COUNT 306 10^3/uL (150-450); RED BLOOD COUNT 3.41 10^6/uL (3.72-5.28); RED CELL DISTRIBUTION WIDTH 13.5 % (11.5-14.0); SEGMENTED NEUTROPHILS % (AUTO) 85.8 % (42-78); TOTAL CELLS COUNTED % (AUTO) 100 %; WHITE BLOOD COUNT 17.6 10^3/uL (4.0-10.5)
[2019-07-14 05:29] LABS: INTERNATIONAL RATION (INR) 0.96; PROTHROMBIN TIME 12.8 SEC (11.4-15.4)
[2019-07-14 05:30] LABS: ALBUMIN 3.1 g/dL (3.5-5.0); ALKALINE PHOSPHATASE 94 U/L (38-126); ANION GAP 8 (5-19); ASPARTATE AMINO TRANSFERASE 33 U/L (14-36); BILIRUBIN,DIRECT 0.2 mg/dL (0.0-0.4); BILIRUBIN,TOTAL 0.9 mg/dL (0.2-1.3); BLOOD UREA NITROGEN 17 mg/dL (7-20); CALCIUM 8.5 mg/dL (8.4-10.2); CARBON DIOXIDE 28 mmol/L (22-30); CHLORIDE 98 mmol/L (98-107); GLUCOSE 195 mg/dL (75-110); PARTIAL THROMBOPLASTIN TIME 31.7 SEC (23.5-35.8); POTASSIUM 4.8 mmol/L (3.6-5.0); TOTAL PROTEIN 6.2 g/dL (6.3-8.2)
[2019-07-14] MEDS ORDERED: PIPERACILLIN/TAZOBACTAM 4.5 GM VIAL IV ONE (05:36)
[2019-07-14] MEDS ORDERED: AZITHROMYCIN INJ 500 MG VIAL IV ONE (05:36)
[2019-07-14 06:01] LABS: ARTERIAL BLOOD BASE EXCESS 2.2 mmol/L; ARTERIAL BLOOD H2CO3 1.36 mmol/L (1.05-1.35); ARTERIAL BLOOD HCO3 27.4 mmol/L (20-24); ARTERIAL BLOOD O2 SATURATION 98.1 % (94-98); ARTERIAL BLOOD PCO2 45.3 mmHg (35-45); ARTERIAL BLOOD PO2 112.7 mmHg (80-100); ARTERIAL BLOOD TOTAL CO2 28.8 mmol/L (21-25)
[2019-07-14 06:06] LABS: ARTERIAL BLOOD FIO2 40%
--- NOTE | 2019-07-14 06:21 | RADIOLOGY REPORT (SQ) ---
EXAM DESCRIPTION: X-ray single view chest. CLINICAL HISTORY: 78 years Female, difficulty breathing COMPARISON: 12/28/2017 TECHNIQUE: Single portable x-ray view of the chest performed on 07/14/2019 at 5:28 AM FINDINGS: The lungs are hyperinflated. There is chronic pleural parenchymal fibrosis in the left lung apex. There is parenchymal opacification in the left inferior hemithorax with obscuration of the left hemidiaphragm. An infectious or inflammatory process is not excluded. A left pleural effusion is not excluded. There is very mild hazy opacification in the right inferior hemithorax which may be due to fibrosis or inflammatory changes. There is no evidence of a pneumothorax. The cardiac silhouette is normal in size and configuration. The mediastinal contours are normal. Since the prior study there has been development of an acute displaced fracture through the right humeral neck. There is diffuse osteopenia. No focal soft tissue abnormalities are seen. Lines and tubes: None. IMPRESSION: 1. New volume loss in the left lung base concerning for an infectious or inflammatory process and possible small left pleural effusion. 2. Mild chronic fibrotic changes versus acute inflammatory changes in the right lung base. 3. Chronic pleural parenchymal scarring in the left lung apex. 4. Hyperinflation of the lungs. 5. Acute displaced fracture through the right humeral neck and diffuse osteopenia
--- NOTE | 2019-07-14 06:45 | ER Document Report ---
ED Respiratory Problem - General Chief Complaint: High Blood Pressure Stated Complaint: ELEVATED BP AND HEART RATE Time Seen by Provider: 07/14/19 05:14 Primary Care Provider: STEPHANIE NAVARRO MD [Primary Care Provider] - Follow up as needed Notes: Patient is a 78-year-old female presents to the emergency department via EMS. HPI obtained from nursing staff who obtained from EMS. Nurse voices patient was admitted to this facility on 07/09 after a fall. Sustained multiple fractures. To include thoracic, right hip and right humerus. Patient was admitted to this facility and discharged on 07/13/2019. Was placed at [facility] and rehabilitation. Patient was also started on Bactrim for a urinary tract infection on 07/13/2019. Nursing note states patient's blood pressure was noted to be 170/100 this evening. Was given Coreg 6.25 mg p.o. around 230am Heart rate noted to be 125 with oxygen saturation 83%. At that time 911 was alerted. Patient has a history of CVA with total aphasia, right-sided weakness, dementia, COPD. According to notes patient is supposed to be on oxygen at all times. She is currently on 4 L/min in the emergency department with oxygen saturations at 98%. She is tachypneic with audible rales heard without a stethoscope. Patient follows some commands, will move left hand and squeeze fingers when asked and opens her eyes to verbal stimuli. TRAVEL OUTSIDE OF THE [place] IN LAST 30 DAYS: No - Related Data Allergies/Adverse Reactions: No Known Allergies Allergy (Verified 08/28/18 09:46) Past Medical History - General Information source: Transfer Record, Emergency Med Personnel - Social History Smoking Status: Unknown if Ever Smoked Family History: Other - Unobtainable Patient has suicidal ideation: No Patient has homicidal ideation: No - Past Medical History Cardiac Medical History: Reports: Hx Hypertension Pulmonary Medical History: Reports: Hx COPD Neurological Medical History: Reports: Hx Cerebrovascular Accident Renal/ Medical History: Denies: Hx Peritoneal Dialysis Psychiatric Medical History: Reports: Hx Dementia Denies: Hx Depression - Immunizations Hx Diphtheria, Pertussis, Tetanus Vaccination: Yes Hx Pneumococcal Vaccination: 10/11/00 Review of Systems - Review of Systems -: Yes ROS unobtainable due to patient's medical condition Physical Exam - Vital signs Vitals: Resp Pulse Ox 27 H 96 07/14/19 04:54 07/14/19 04:54 - Notes Notes: GENERAL: Alert, opens eyes to verbal stimuli. HEAD: Normocephalic, atraumatic. EYES: Pupils equal, round, and reactive to light. Extraocular movements intact. ENT: Oral mucosa moist, tongue midline. NECK: Full range of motion. Supple. Trachea midline. LUNGS: Rales to auscultation bilaterally, tachypneic. HEART: Tachycardic rate and rhythm. No murmur ABDOMEN: Soft, Non-distended. Bowel sounds present in all 4 quadrants. EXTREMITIES: Patient moves left upper extremity on command, does not move right upper extremity. Does not move bilateral lower extremities. No edema, normal radial and dorsalis pedis pulses bilaterally. No cyanosis. NEUROLOGICAL: Aphasic which is patient's baseline per past medical history. SKIN: Warm, dry, normal turgor. No rashes or lesions noted. Course - Re-evaluation Re-evalutation: Laboratory 07/14/19 07/14/19 07/14/19 04:50 04:50 04:50 WBC 17.6 H RBC 3.41 L Hgb 10.2 L Hct 31.1 L MCV 91 MCH 30.0 MCHC 32.9 RDW 13.5 Plt Count 306 Lymph % (Auto) 6.4 L [place] % (Auto) 6.2 Eos % (Auto) 1.3 Baso % (Auto) 0.3 Absolute Neuts (auto) 15.1 H Absolute Lymphs (auto) 1.1 Absolute Monos (auto) 1.1 Absolute Eos (auto) 0.2 Absolute Basos (auto) 0.1 Seg Neutrophils % 85.8 H PT 12.8 INR 0.96 APTT 31.7 Carbonic Acid HCO3/H2CO3 Ratio ABG pH ABG pCO2 ABG pO2 ABG HCO3 ABG Total CO2 ABG O2 Saturation ABG Base Excess FiO2 Sodium 133.5 L Potassium 4.8 Chloride 98 Carbon Dioxide 28 Anion Gap 8 BUN 17 Creatinine 0.73 Est GFR ( Amer) > 60 Est GFR (MDRD) Non-Af > 60 Glucose 195 H Lactic Acid Calcium 8.5 Total Bilirubin 0.9 Direct Bilirubin 0.2 Neonat Total Bilirubin Not Reportable Neonat Direct Bilirubin Not Reportable Neonat Indirect Bili Not Reportable AST 33 ALT 14 Alkaline Phosphatase 94 Troponin I Total Protein 6.2 L Albumin 3.1 L 07/14/19 07/14/19 07/14/19 04:50 05:36 05:45 WBC RBC Hgb Hct MCV MCH MCHC RDW Plt Count Lymph % (Auto) [place] % (Auto) Eos % (Auto) Baso % (Auto) Absolute Neuts (auto) Absolute Lymphs (auto) Absolute Monos (auto) Absolute Eos (auto) Absolute Basos (auto) Seg Neutrophils % PT INR APTT Carbonic Acid 1.36 H HCO3/H2CO3 Ratio 20:1 ABG pH 7.40 ABG pCO2 45.3 H ABG pO2 112.7 H ABG HCO3 27.4 H ABG Total CO2 28.8 H ABG O2 Saturation 98.1 H ABG Base Excess 2.2 FiO2 40% Sodium Potassium Chloride Carbon Dioxide Anion Gap BUN Creatinine Est GFR ( Amer) Est GFR (MDRD) Non-Af Glucose Lactic Acid 0.9 Calcium Total Bilirubin Direct Bilirubin Neonat Total Bilirubin Neonat Direct Bilirubin Neonat Indirect Bili AST ALT Alkaline Phosphatase Troponin I 0.267 Total Protein Albumin Chest X-Ray 07/14/19 04:55 IMPRESSION: 1. New volume loss in the left lung base concerning for an infectious or inflammatory process and possible small left pleural effusion. 2. Mild chronic fibrotic changes versus acute inflammatory changes in the right lung base. 3. Chronic pleural parenchymal scarring in the left lung apex. 4. Hyperinflation of the lungs. 5. Acute displaced fracture through the right humeral neck and diffuse osteopenia Patient's chest x-ray does show new volume loss in the left lung base concerning for pneumonia. Will treat for hospital-acquired pneumonia as patient was discharged yesterday. Leukocytosis noted. Patient's troponin was noted to be 0.267. Patient's troponin while in the emergency department/admitted recently was negative. Patient is aphasic, nonverbal will not answer questions. Is unknown if patient is having any chest pain at this time. I have discussed this case with my attending Dr. Aiken. He is recommending speaking with cardiology about elevated troponin. 07/14/19 07:28 I have spoken with strap setter Dr. Obregon he states he is unconcerned the patient's troponin based on her diagnosis of pneumonia. I have then discussed this case with hospitalist Dr. Hsu who will admit the Pt. to IMCU. Patient continues on BiPAP. She has a respiratory rate of 27, oxygen saturation 100%, pulse 93, blood pressure 130/84. EKG shows sinus tachycardia rate of 104, QTc 484, ST depression noted in inferior leads, no ST elevation noted, read by Dr. Aiken. - Vital Signs Vital signs: Temp Pulse Resp BP Pulse Ox 25 H 130/84 H 99 07/14/19 07:01 07/14/19 07:00 07/14/19 07:01 - Laboratory Result Diagrams: 07/14/19 04:50 07/14/19 04:50 Laboratory results interpreted by me: 07/14/19 07/14/19 07/14/19 04:50 04:50 05:45 WBC 17.6 H RBC 3.41 L Hgb 10.2 L Hct 31.1 L Lymph % (Auto) 6.4 L Absolute Neuts (auto) 15.1 H Seg Neutrophils % 85.8 H Carbonic Acid 1.36 H ABG pCO2 45.3 H ABG pO2 112.7 H ABG HCO3 27.4 H ABG Total CO2 28.8 H ABG O2 Saturation 98.1 H Sodium 133.5 L Glucose 195 H Total Protein 6.2 L Albumin 3.1 L Urine Protein Urine Blood Urine Nitrite Ur Leukocyte Esterase 07/14/19 06:47 WBC RBC Hgb Hct Lymph % (Auto) Absolute Neuts (auto) Seg Neutrophils % Carbonic Acid ABG pCO2 ABG pO2 ABG HCO3 ABG Total CO2 ABG O2 Saturation Sodium Glucose Total Protein Albumin Urine Protein 30 H Urine Blood SMALL H Urine Nitrite POSITIVE H Ur Leukocyte Esterase LARGE H Discharge - Discharge Clinical Impression: Hospital-acquired pneumonia, Respiratory distress Urinary tract infection Qualifiers: Urinary tract infection type: acute cystitis Hematuria presence: without hematuria Qualified Code(s): N30.00 - Acute cystitis without hematuria Condition: Fair Disposition: ADMITTED INPATIENT Admitting Provider: Shadi (Hospitalist) Unit Admitted: IMCU Referrals: STEPHANIE NAVARRO MD [Primary Care Provider] - Follow up as needed
[2019-07-14 07:10] LABS: APPEARANCE,URINE SLIGHTLY-CLOUDY; BILIRUBIN,URINE NEGATIVE (NEGATIVE); COLOR,URINE YELLOW; GLUCOSE, URINE NEGATIVE (NEGATIVE); KETONES,URINE NEGATIVE (NEGATIVE); LEUKOCYTE ESTERASE,URINE LARGE (NEGATIVE); NITRITE,URINE POSITIVE (NEGATIVE); PROTEIN,URINE 30 mg/dL (NEGATIVE); URINE SPECIFIC GRAVITY 1.014; UROBILINOGEN,URINE NEGATIVE mg/dL (<2.0)
[2019-07-14] MEDS ORDERED: LEVALBUTEROL HCL NEB 1.25 MG/3 ML AMPUL NEB PRN (09:19)
[2019-07-14] MEDS ORDERED: ACETAMINOPHEN 650 MG SUPP.RECT PR PRN (09:36)
[2019-07-14] MEDS ORDERED: ACETAMINOPHEN 325 MG TABLET PO PRN (09:36)
--- NOTE | 2019-07-14 09:47 | PDOC H&P ---
History of Present Illness Admission Date/PCP: 07/14/19 08:28 STEPHANIE NAVARRO MD Patient complains of: Increased SOB History of Present Illness: ELIZA ALSTON is a 78 year old female who has a history of stroke. She had a fall at home and sustained multiple fractures. She had surgery to correct her hip fracture. She has a right shoulder fracture that is in a sling and she has multiple rib fractures. She was discharged from this facility several days ago. They noted increased shortness of breath and abnormal breath sounds starting last evening. They seem to worsen this morning and the patient was referred to the emergency department for further evaluation. In the emergency room she was found to have infiltrates/consolidation at both lung bases as well as some pulmonary fibrosis. Her white blood cell count was also elevated and she was tachycardic. In addition the urinalysis showed white cells with possible infection. The patient was started on antibiotics and BiPAP. She was referred to the hospital service for admission. Past Medical History Past Medical History: As the patient is aphasic and on BiPAP all history was obtained from medical records. There were no family members present. Cardiac Medical History: Reports: Hypertension Pulmonary Medical History: Reports: Chronic Obstructive Pulmonary Disease (COPD) Psychiatric Medical History: Reports: Dementia Denies: Depression Past Surgical History Past Surgical History: Reports: Other - Hip repair Social History Information Source: [facility] Records Lives with: Other - Currently at short-term rehab Smoking Status: Unknown if Ever Smoked Frequency of Alcohol Use: None Hx Recreational Drug Use: No Drugs: None Hx Prescription Drug Abuse: No - Advance Directive Resuscitation Status: Full Code Family History Family History: Other - Unobtainable Parental Family History Reviewed: No - Unobtainable Children Family History Reviewed: No - Unobtainable Sibling(s) Family History Reviewed.: No - Unobtainable Medication/Allergy Home Medications: No Home Medications 07/14/19 Allergies/Adverse Reactions: No Known Allergies Allergy (Verified 08/28/18 09:46) Review of Systems ROS unobtainable: Due to mental status - Patient is aphasic and currently wearing BiPAP. Respiratory: PRESENT: dyspnea Physical Exam Vital Signs: Temp Pulse Resp BP Pulse Ox 25 H 130/84 H 99 07/14/19 07:01 07/14/19 07:00 07/14/19 07:01 Intake & Output 1007/14/19 07/15/19 06:59 06:59 06:59 Weight 40 kg General appearance: PRESENT: severe distress, thin, well-developed Head exam: PRESENT: atraumatic, normocephalic Eye exam: PRESENT: conjunctiva pale, other - Positive spontaneous eye movement bilaterally. ABSENT: scleral icterus Ear exam: PRESENT: normal external ear exam. ABSENT: bleeding, drainage Mouth exam: PRESENT: other - BiPAP mask in place Teeth exam: PRESENT: other - BiPAP mask in place Neck exam: ABSENT: JVD, lymphadenopathy, tracheal deviation, tracheostomy Respiratory exam: PRESENT: accessory muscle use, decreased breath sounds - Both bases, rales - Bilaterally, symmetrical, tachypnea. ABSENT: wheezes Cardiovascular exam: PRESENT: RRR, +S1, +S2 GI/Abdominal exam: PRESENT: diminished bowel sounds, soft. ABSENT: distended, tenderness Extremities exam: PRESENT: other - Right arm is in a sling. ABSENT: pedal edema Musculoskeletal exam: PRESENT: other - Decreased muscle mass Neurological exam: PRESENT: alert, awake, aphasic, other - Unable to assess further Psychiatric exam: PRESENT: anxious Skin exam: PRESENT: dry, pallor, warm. ABSENT: rash Results Laboratory Results: 07/14/19 04:50 07/14/19 04:50 07/14/19 07/14/19 07/14/19 04:50 04:50 05:36 WBC 17.6 H RBC 3.41 L Hgb 10.2 L Hct 31.1 L MCV 91 MCH 30.0 MCHC 32.9 RDW 13.5 Plt Count 306 Seg Neutrophils % 85.8 H Carbonic Acid HCO3/H2CO3 Ratio ABG pH ABG pCO2 ABG pO2 ABG HCO3 ABG O2 Saturation ABG Base Excess FiO2 Sodium 133.5 L Potassium 4.8 Chloride 98 Carbon Dioxide 28 Anion Gap 8 BUN 17 Creatinine 0.73 Est GFR ( Amer) > 60 Glucose 195 H Lactic Acid 0.9 Calcium 8.5 Total Bilirubin 0.9 AST 33 Alkaline Phosphatase 94 Total Protein 6.2 L Albumin 3.1 L Urine Color Urine Appearance Urine pH Ur Specific [place] Urine Protein Urine Glucose (UA) Urine Ketones Urine Blood Urine Nitrite Ur Leukocyte Esterase Urine WBC (Auto) Urine RBC (Auto) 07/14/19 07/14/19 05:45 06:47 WBC RBC Hgb Hct MCV MCH MCHC RDW Plt Count Seg Neutrophils % Carbonic Acid 1.36 H HCO3/H2CO3 Ratio 20:1 ABG pH 7.40 ABG pCO2 45.3 H ABG pO2 112.7 H ABG HCO3 27.4 H ABG O2 Saturation 98.1 H ABG Base Excess 2.2 FiO2 40% Sodium Potassium Chloride Carbon Dioxide Anion Gap BUN Creatinine Est GFR ( Amer) Glucose Lactic Acid Calcium Total Bilirubin AST Alkaline Phosphatase Total Protein Albumin Urine Color YELLOW Urine Appearance SLIGHTLY-CLOUDY Urine pH 7.0 Ur Specific [place] 1.014 Urine Protein 30 H Urine Glucose (UA) NEGATIVE Urine Ketones NEGATIVE Urine Blood SMALL H Urine Nitrite POSITIVE H Ur Leukocyte Esterase LARGE H Urine WBC (Auto) 75 Urine RBC (Auto) 10 07/14/19 04:50 Troponin I 0.267 Impressions: Chest X-Ray 07/14/19 04:55 IMPRESSION: 1. New volume loss in the left lung base concerning for an infectious or inflammatory process and possible small left pleural effusion. 2. Mild chronic fibrotic changes versus acute inflammatory changes in the right lung base. 3. Chronic pleural parenchymal scarring in the left lung apex. 4. Hyperinflation of the lungs. 5. Acute displaced fracture through the right humeral neck and diffuse osteopenia Assessment and Plan - Diagnosis (1) Hospital-acquired pneumonia Is this a current diagnosis for this admission?: Yes (2) Acute respiratory failure with hypoxia and hypercapnia Is this a current diagnosis for this admission?: Yes (3) Chronic obstructive pulmonary disease Qualifiers: COPD type: emphysema Is this a current diagnosis for this admission?: Yes - Plan Summary Summary: 07/14/2019 The patient was just discharged from this facility. She fell and sustained rib fractures, intratrochanteric fracture and shoulder fracture. She now returns with pneumonia. This is a hospital-acquired pneumonia and could be pneumococcal but also could be gram-negative. She is on antibiotic therapy and currently requires BiPAP. We will wean the BiPAP as tolerated. We will then wean her oxygen. She has nebulizer treatments in addition to the antibiotics. [facility] During this hospitalization it would be best to address her CODE STATUS with family as her comorbidities and clinical state would make successful resuscitation extremely unlikely. - Time Time Spent with patient: 35 or more minutes Medications reviewed and adjusted accordingly: Yes Anticipated discharge: SNF - Inpatient Certification Based on my medical assessment, after consideration of the patient's comorbidities, presenting symptoms, or acuity I expect that the services needed warrant INPATIENT care.: Yes I certify that my determination is in accordance with my understanding of Medicare's requirements for reasonable and necessary INPATIENT services [42 CFR 412.3e].: Yes Medical Necessity: Need for IV Antibiotics
[2019-07-14] MEDS: GUAIFENESIN 600 MG TABLET.SA PO SCH ×2 (10:06→22:00)
[2019-07-14] MEDS: AZITHROMYCIN 500 MG in DEXTROSE 5%-WATER 250 ML IV SCH (10:06)
[2019-07-14] MEDS: CEFTRIAXONE 1 GM/D5W RTU 1 GM/50 ML RTUPB IV SCH (10:07)
--- NOTE | 2019-07-14 13:41 | EKG REPORT ---
SEVERITY:- ABNORMAL ECG - SINUS TACHYCARDIA BORDERLINE RIGHT AXIS DEVIATION CONSIDER LEFT VENTRICULAR HYPERTROPHY ST DEPRESSION, CONSIDER ISCHEMIA, DIFFUSE LDS : Confirmed by: Jennie Obregon MD 14-Jul-2019 13:39:42
[2019-07-14] MEDS: IPRATROPIUM/ALBUTEROL 0.5-2.5 MG/3 ML AMPUL NEB SCH ×2 (14:52→20:51)
[2019-07-14] MEDS: HEPARIN SOD (PORCINE) 5,000 UNIT/ML 1 ML VIAL SUBCUT SCH ×2 (14:55→22:00)
[2019-07-14 15:11] LABS: ARTERIAL BLOOD BASE EXCESS 0.4 mmol/L; ARTERIAL BLOOD H2CO3 1.21 mmol/L (1.05-1.35); ARTERIAL BLOOD O2 SATURATION 98.7 % (94-98); ARTERIAL BLOOD PCO2 40.2 mmHg (35-45); ARTERIAL BLOOD PH 7.41 (7.35-7.45); ARTERIAL BLOOD PO2 132.4 mmHg (80-100); ARTERIAL BLOOD TOTAL CO2 26.3 mmol/L (21-25)
[2019-07-14 15:12] LABS: ARTERIAL BLOOD FIO2 40%
[2019-07-14] MEDS: BUDESONIDE NEB 0.5 MG/2 ML AMPUL NEB SCH (20:51)
[2019-07-15] MEDS: IPRATROPIUM/ALBUTEROL 0.5-2.5 MG/3 ML AMPUL NEB SCH ×4 (02:41→20:40)
[2019-07-15] MEDS: HEPARIN SOD (PORCINE) 5,000 UNIT/ML 1 ML VIAL SUBCUT SCH ×3 (05:57→21:54)
[2019-07-15 06:47] LABS: ABSOLUTE BASOPHILS # (AUTO) 0.1 10^3/uL (0.0-0.2); ABSOLUTE EOSINOPHILS # (AUTO) 0.3 10^3/uL (0.0-0.6); ABSOLUTE MONOCYTES (AUTO) 0.9 10^3/uL (0.1-1.4); ABSOLUTE NEUT (AUTO) 8.8 10^3/uL (1.7-8.2); BASOPHILS % (AUTO) 0.5 % (0-2); EOSINOPHILS % (AUTO) 2.4 % (0-6); HEMATOCRIT 28.2 % (36.0-47.0); HEMOGLOBIN 9.5 g/dL (12.0-15.5); LYMPHOCYTES % (AUTO) 8.7 % (13-45); MEAN CORPUSCULAR HEMOGLOBIN 30.9 pg (27.0-33.4); MEAN CORPUSCULAR HGB CONC 33.7 g/dL (32.0-36.0); MEAN CORPUSCULAR VOLUME 92 fl (80-97); MONOCYTES % (AUTO) 7.9 % (3-13); PLATELET COUNT 267 10^3/uL (150-450); RED BLOOD COUNT 3.08 10^6/uL (3.72-5.28); RED CELL DISTRIBUTION WIDTH 13.3 % (11.5-14.0); SEGMENTED NEUTROPHILS % (AUTO) 80.5 % (42-78); TOTAL CELLS COUNTED % (AUTO) 100 %; WHITE BLOOD COUNT 10.9 10^3/uL (4.0-10.5)
[2019-07-15 07:10] LABS: ANION GAP 8 (5-19); BLOOD UREA NITROGEN 18 mg/dL (7-20); CALCIUM 8.6 mg/dL (8.4-10.2); CARBON DIOXIDE 27 mmol/L (22-30); CHLORIDE 100 mmol/L (98-107); GLUCOSE 134 mg/dL (75-110); POTASSIUM 3.9 mmol/L (3.6-5.0)
[2019-07-15] MEDS ORDERED: INFLUENZA QUAD (6MOS+) 2019-20 VAC 0.5 ML SYR IM ONE (08:00)
[2019-07-15] MEDS: BUDESONIDE NEB 0.5 MG/2 ML AMPUL NEB SCH ×2 (08:20→20:40)
[2019-07-15] MEDS: CEFTRIAXONE 1 GM/D5W RTU 1 GM/50 ML RTUPB IV SCH (10:08)
[2019-07-15] MEDS: GUAIFENESIN 600 MG TABLET.SA PO SCH ×2 (10:10→21:53)
[2019-07-15] MEDS: AZITHROMYCIN 500 MG in DEXTROSE 5%-WATER 250 ML IV SCH (10:39)
[2019-07-15] MEDS: HYDROCODONE/ACETAMINOPHEN 5-325 MG TABLET PO PRN (17:10)
--- NOTE | 2019-07-15 17:52 | PDOC PROGRESS REPORT ---
Subjective Progress Note for:: 07/15/19 Subjective:: Patient with a very congested cough. She has nasal cannula in place. She appears somewhat anxious. Reason For Visit: PNEUMONIA Physical Exam Vital Signs: Temp Pulse Resp BP Pulse Ox 98.2 F 95 18 116/65 97 07/15/19 12:29 07/15/19 14:01 07/15/19 14:01 07/15/19 12:29 07/15/19 16:45 Pulse Oximeter Continuous Start: 07/14/19 09:20 Freq: RTQ4 Status: Active Protocol: Document 07/15/19 16:45 HCR (Rec: 07/15/19 17:33 [id number]) Pulse Oximetry Assessment Oxygen Saturation (92-100) 97 Oxygen Flow Rate (L/min) 2 Oxygen Delivery Method Nasal Cannula Equipment Usage Equipment in Use Continuous SpO2 Machine # 5 Intake & Output 07/14/19 07/15/19 07/16/19 06:59 06:59 06:59 Intake Total 660 300 Output Total 1050 Balance -390 300 Weight 40 kg 46.8 kg General appearance: PRESENT: mild distress, thin Head exam: PRESENT: atraumatic, normocephalic Ear exam: PRESENT: normal external ear exam. ABSENT: bleeding, drainage Respiratory exam: PRESENT: rhonchi - Rhonchorous cough, symmetrical, tachypnea. ABSENT: rales, wheezes Cardiovascular exam: PRESENT: RRR, +S1, +S2 GI/Abdominal exam: PRESENT: normal bowel sounds, soft. ABSENT: distended, tenderness Extremities exam: ABSENT: pedal edema Musculoskeletal exam: PRESENT: other - Decreased muscle mass Neurological exam: PRESENT: alert, awake, aphasic Psychiatric exam: PRESENT: anxious Results Laboratory Results: 07/15/19 05:38 07/15/19 05:38 07/15/19 07/15/19 05:38 05:38 WBC 10.9 H RBC 3.08 L Hgb 9.5 L Hct 28.2 L MCV 92 MCH 30.9 MCHC 33.7 RDW 13.3 Plt Count 267 Seg Neutrophils % 80.5 H Sodium 134.8 L Potassium 3.9 Chloride 100 Carbon Dioxide 27 Anion Gap 8 BUN 18 Creatinine 0.62 Est GFR ( Amer) > 60 Glucose 134 H Calcium 8.6 07/14/19 04:50 Troponin I 0.267 Impressions: Chest X-Ray 07/14/19 04:55 IMPRESSION: 1. New volume loss in the left lung base concerning for an infectious or inflammatory process and possible small left pleural effusion. 2. Mild chronic fibrotic changes versus acute inflammatory changes in the right lung base. 3. Chronic pleural parenchymal scarring in the left lung apex. 4. Hyperinflation of the lungs. 5. Acute displaced fracture through the right humeral neck and diffuse osteopenia Assessment and Plan - Diagnosis (1) Hospital-acquired pneumonia Is this a current diagnosis for this admission?: Yes (2) Acute respiratory failure with hypoxia and hypercapnia Is this a current diagnosis for this admission?: Yes (3) Chronic obstructive pulmonary disease Qualifiers: COPD type: emphysema Is this a current diagnosis for this admission?: Yes - Plan Summary Summary: 07/14/2019 The patient was just discharged from this facility. She fell and sustained rib fractures, intratrochanteric fracture and shoulder fracture. She now returns with pneumonia. This is a hospital-acquired pneumonia and could be pneumococcal but also could be gram-negative. She is on antibiotic therapy and currently requires BiPAP. We will wean the BiPAP as tolerated. We will then wean her oxygen. She has nebulizer treatments in addition to the antibiotics. The plan will be to return to the care home facility. During this hospitalization it would be best to address her CODE STATUS with family as her comorbidities and clinical state would make successful resuscitation extremely unlikely. 07/15/2019- The patient seems somewhat anxious today. She is a little tachypneic. As she is aphasic it is difficult to assess specifically what she needs. She has a very congested cough as well. Ongoing combination antibiotic therapy for the pneumonia. Nebulizer treatments scheduled and as needed as well as oxygen supplementation for the acute on chronic respiratory failure with COPD. Aphasia from old stroke-I will review old records to see if she had a modified barium swallow at this facility. She is high risk aspiration. This would ce rtainly have a direct effect on prognosis. - Time Time Spent with patient: Less than 15 minutes Medications reviewed and adjusted accordingly: Yes Anticipated discharge: SNF
[2019-07-16] MEDS: IPRATROPIUM/ALBUTEROL 0.5-2.5 MG/3 ML AMPUL NEB SCH ×4 (01:59→19:48)
[2019-07-16] MEDS: HEPARIN SOD (PORCINE) 5,000 UNIT/ML 1 ML VIAL SUBCUT SCH ×3 (06:30→21:27)
[2019-07-16] MEDS: BUDESONIDE NEB 0.5 MG/2 ML AMPUL NEB SCH ×2 (08:52→19:48)
[2019-07-16] MEDS: GUAIFENESIN 600 MG TABLET.SA PO SCH (09:10)
[2019-07-16] MEDS: CEFTRIAXONE 1 GM/D5W RTU 1 GM/50 ML RTUPB IV SCH (09:10)
[2019-07-16] MEDS: AZITHROMYCIN 500 MG in DEXTROSE 5%-WATER 250 ML IV SCH (09:48)
[2019-07-16] MEDS ORDERED: GUAIFENESIN SYRP 200 MG/10 ML UDC PO SCH (12:15)
--- NOTE | 2019-07-16 12:23 | PDOC PROGRESS REPORT ---
Subjective Progress Note for:: 07/16/19 Subjective:: Patient always has a very frightened look on her face. I believe she is struggling to communicate. She always reaches out to grab your hand. I have asked multiple questions that only require a yes or no not of the head but I do not know if she does not comprehend or is unable to respond. Reason For Visit: PNEUMONIA Physical Exam Vital Signs: Temp Pulse Resp BP Pulse Ox 97.8 F 86 18 124/68 97 07/16/19 04:00 07/16/19 08:52 07/16/19 08:52 07/16/19 04:00 07/16/19 12:00 Pulse Oximeter Continuous Start: 07/14/19 09:20 Freq: RTQ4 Status: Active Protocol: Document 07/16/19 12:00 LDA (Rec: 07/16/19 12:09 [id number]) Pulse Oximetry Assessment Oxygen Saturation (92-100) 97 Oxygen Delivery Method Nasal Cannula Fraction of Inspired Oxygen (FIO2) 2 Equipment Usage Equipment in Use Continuous SpO2 Machine # [id number] Intake & Output 07/15/19 07/16/19 07/17/19 06:59 06:59 06:59 Intake Total 660 940 50 Output Total 1050 1650 Balance -390 -710 50 Weight 46.8 kg 46.6 kg General appearance: PRESENT: mild distress, thin - Very frail appearing Head exam: PRESENT: atraumatic, normocephalic Respiratory exam: PRESENT: clear to auscultation anthony, symmetrical, unlabored. ABSENT: accessory muscle use, rales, rhonchi, tachypnea, wheezes Cardiovascular exam: PRESENT: RRR, +S1, +S2 GI/Abdominal exam: PRESENT: normal bowel sounds, soft. ABSENT: distended, tenderness Extremities exam: ABSENT: pedal edema Musculoskeletal exam: PRESENT: other - Decreased muscle mass Neurological exam: PRESENT: alert, awake, aphasic. ABSENT: oriented to person - Unable to tell Psychiatric exam: PRESENT: anxious - Appears quite anxious, unusual affect - Affect seems to reflect stress.. ABSENT: agitated Results Laboratory Results: 07/15/19 05:38 07/15/19 05:38 07/14/19 04:50 Troponin I 0.267 Impressions: Chest X-Ray 07/14/19 04:55 IMPRESSION: 1. New volume loss in the left lung base concerning for an infectious or inflammatory process and possible small left pleural effusion. 2. Mild chronic fibrotic changes versus acute inflammatory changes in the right lung base. 3. Chronic pleural parenchymal scarring in the left lung apex. 4. Hyperinflation of the lungs. 5. Acute displaced fracture through the right humeral neck and diffuse osteopenia Assessment and Plan - Diagnosis (1) Hospital-acquired pneumonia Is this a current diagnosis for this admission?: Yes (2) Acute respiratory failure with hypoxia and hypercapnia Is this a current diagnosis for this admission?: Yes (3) Chronic obstructive pulmonary disease Qualifiers: COPD type: emphysema Is this a current diagnosis for this admission?: Yes (4) Severe protein-calorie malnutrition Is this a current diagnosis for this admission?: Yes - Plan Summary Summary: 07/14/2019 The patient was just discharged from this facility. She fell and sustained rib fractures, intratrochanteric fracture and shoulder fracture. She now returns with pneumonia. This is a hospital-acquired pneumonia and could be pneumococcal but also could be gram-negative. She is on antibiotic therapy and currently requires BiPAP. We will wean the BiPAP as tolerated. We will then wean her oxygen. She has nebulizer treatments in addition to the antibiotics. The plan will be to return to the residential facility. During this hospitalization it would be best to address her CODE STATUS with family as her comorbidities and clinical state would make successful resuscitation extremely unlikely. 07/15/2019- The patient seems somewhat anxious today. She is a little tachypneic. As she is aphasic it is difficult to assess specifically what she needs. She has a very congested cough as well. Ongoing combination antibiotic therapy for the pneumonia. Nebulizer treatments scheduled and as needed as well as oxygen supplementation for the acute on chronic respiratory failure with COPD. Aphasia from old stroke-I will review old records to see if she had a modified barium swallow at this facility. She is high risk aspiration. This would certainly have a direct effect on prognosis. 07/16/2019- Once again she appears frightened or anxious. Breathing appears to be comfortable. I did not appreciate any rhonchi. She still has a somewhat congested cough. She remains on nasal cannula. Ongoing oxygen supplementation and nebulizer treatments. Marked aphasia-hard to know if it is just expressive. I cannot tell if she understands questions or not. She certainly does not answer questions. Looks like she attempts to verbalize on rare occasion. Patient has decreased muscle mass. With her aphasia and history of stroke her intake varies. Her BMI is only 17 at this point. Intake varies between 75 and 25%. - Time Time Spent with patient: 15-24 minutes Medications reviewed and adjusted accordingly: Yes
[2019-07-16] MEDS: HYDROCODONE/ACETAMINOPHEN 5-325 MG TABLET PO PRN (21:34)
[2019-07-17] MEDS: IPRATROPIUM/ALBUTEROL 0.5-2.5 MG/3 ML AMPUL NEB SCH ×4 (02:05→20:22)
[2019-07-17 05:51] LABS: ABSOLUTE BASOPHILS # (AUTO) 0.1 10^3/uL (0.0-0.2); ABSOLUTE EOSINOPHILS # (AUTO) 0.4 10^3/uL (0.0-0.6); ABSOLUTE LYMPHOCYTES (AUTO) 1.3 10^3/uL (0.5-4.7); ABSOLUTE NEUT (AUTO) 6.7 10^3/uL (1.7-8.2); BASOPHILS % (AUTO) 0.6 % (0-2); EOSINOPHILS % (AUTO) 4.2 % (0-6); HEMATOCRIT 27.6 % (36.0-47.0); HEMOGLOBIN 9.2 g/dL (12.0-15.5); LYMPHOCYTES % (AUTO) 13.5 % (13-45); MEAN CORPUSCULAR HGB CONC 33.5 g/dL (32.0-36.0); MEAN CORPUSCULAR VOLUME 93 fl (80-97); PLATELET COUNT 313 10^3/uL (150-450); RED BLOOD COUNT 2.98 10^6/uL (3.72-5.28); RED CELL DISTRIBUTION WIDTH 13.5 % (11.5-14.0); SEGMENTED NEUTROPHILS % (AUTO) 70.7 % (42-78); TOTAL CELLS COUNTED % (AUTO) 100 %; WHITE BLOOD COUNT 9.4 10^3/uL (4.0-10.5)
[2019-07-17 06:06] LABS: ANION GAP 7 (5-19); BLOOD UREA NITROGEN 20 mg/dL (7-20); CALCIUM 8.4 mg/dL (8.4-10.2); CARBON DIOXIDE 26 mmol/L (22-30); CHLORIDE 102 mmol/L (98-107); GLUCOSE 116 mg/dL (75-110); POTASSIUM 4.6 mmol/L (3.6-5.0)
[2019-07-17 06:13] LABS: PREALBUMIN 9.8 mg/dL (17.6-36.0)
[2019-07-17] MEDS: HEPARIN SOD (PORCINE) 5,000 UNIT/ML 1 ML VIAL SUBCUT SCH ×3 (06:25→22:51)
[2019-07-17] MEDS: BUDESONIDE NEB 0.5 MG/2 ML AMPUL NEB SCH ×2 (08:01→20:22)
[2019-07-17] MEDS: AZITHROMYCIN 500 MG in DEXTROSE 5%-WATER 250 ML IV SCH (09:24)
[2019-07-17] MEDS: CEFTRIAXONE 1 GM/D5W RTU 1 GM/50 ML RTUPB IV SCH (10:52)
--- NOTE | 2019-07-17 13:09 | PDOC PROGRESS REPORT ---
Subjective Progress Note for:: 07/17/19 Subjective:: The patient is in fact quite awake sitting up in bed. She makes eye contact. I believe she tried to say "Hi". She did try and verbalize the same response to to other questions. She once again reaches out for your hand and holds on tightly. Reason For Visit: PNEUMONIA Physical Exam Vital Signs: Temp Pulse Resp BP Pulse Ox 98.2 F 97 16 133/74 H 97 07/17/19 07:58 07/17/19 08:03 07/17/19 08:03 07/17/19 07:58 07/17/19 08:03 Pulse Oximeter Continuous Start: 07/14/19 09:20 Freq: RTQ4 Status: Active Protocol: Document 07/17/19 08:03 J (Rec: 07/17/19 08:22 J [id number]) Pulse Oximetry Assessment Oxygen Saturation (92-100) 97 Oxygen Flow Rate (L/min) 2 Oxygen Delivery Method Nasal Cannula Equipment Usage Equipment in Use Continuous SpO2 Machine # 5 Intake & Output 07/16/19 07/17/19 07/18/19 06:59 06:59 06:59 Intake Total 940 640 300 Output Total 1650 1550 Balance -710 -910 300 Weight 46.6 kg 45 kg General appearance: PRESENT: no acute distress, thin Eye exam: PRESENT: conjunctiva pale. ABSENT: scleral icterus Ear exam: PRESENT: normal external ear exam. ABSENT: bleeding, drainage Respiratory exam: PRESENT: clear to auscultation anthony, decreased breath sounds - Limited inspiratory phase. Could be related to fractured ribs., symmetrical, unlabored. ABSENT: rales, rhonchi, tachypnea, wheezes Cardiovascular exam: PRESENT: RRR, +S1, +S2 GI/Abdominal exam: PRESENT: soft. ABSENT: distended, tenderness Extremities exam: ABSENT: pedal edema Musculoskeletal exam: PRESENT: other - Decreased muscle mass Neurological exam: PRESENT: alert, awake, aphasic Psychiatric exam: PRESENT: anxious, unusual affect - Frightened affect. ABSENT: agitated Focused psych exam: PRESENT: other - Unable to assess Results Laboratory Results: 07/17/19 05:15 07/17/19 05:15 07/17/19 07/17/19 05:15 05:15 WBC 9.4 RBC 2.98 L Hgb 9.2 L Hct 27.6 L MCV 93 MCH 31.0 MCHC 33.5 RDW 13.5 Plt Count 313 Seg Neutrophils % 70.7 Sodium 135.0 L Potassium 4.6 Chloride 102 Carbon Dioxide 26 Anion Gap 7 BUN 20 Creatinine 0.66 Est GFR ( Amer) > 60 Glucose 116 H Calcium 8.4 Magnesium 1.9 Prealbumin 9.8 L 07/14/19 04:50 Troponin I 0.267 Impressions: Chest X-Ray 07/14/19 04:55 IMPRESSION: 1. New volume loss in the left lung base concerning for an infectious or inflammatory process and possible small left pleural effusion. 2. Mild chronic fibrotic changes versus acute inflammatory changes in the right lung base. 3. Chronic pleural parenchymal scarring in the left lung apex. 4. Hyperinflation of the lungs. 5. Acute displaced fracture through the right humeral neck and diffuse osteopenia Assessment and Plan - Diagnosis (1) Hospital-acquired pneumonia Is this a current diagnosis for this admission?: Yes (2) Acute respiratory failure with hypoxia and hypercapnia Is this a current diagnosis for this admission?: Yes (3) Chronic obstructive pulmonary disease Qualifiers: COPD type: emphysema Is this a current diagnosis for this admission?: Yes (4) Severe protein-calorie malnutrition Is this a current diagnosis for this admission?: Yes (5) Asymptomatic bacteriuria Is this a current diagnosis for this admission?: Yes (6) Closed intertrochanteric fracture of right hip Qualifiers: Encounter type: subsequent encounter Is this a current diagnosis for this admission?: Yes (7) Right humeral fracture Qualifiers: Encounter type: subsequent encounter Humerus Location: surgical neck Fracture type: closed Fracture morphology: 2-part Fracture alignment: displaced Is this a current diagnosis for this admission?: Yes - Plan Summary Summary: 07/14/2019 The patient was just discharged from this facility. She fell and sustained rib fractures, intratrochanteric fracture and shoulder fracture. She now returns with pneumonia. This is a hospital-acquired pneumonia and could be pneumococcal but also could be gram-negative. She is on antibiotic therapy and currently r equires BiPAP. We will wean the BiPAP as tolerated. We will then wean her oxygen. She has nebulizer treatments in addition to the antibiotics. The plan will be to return to the senior care facility. During this hospitalization it would be best to address her CODE STATUS with family as her comorbidities and clinical state would make successful resuscitation extremely unlikely. 07/15/2019- The patient seems somewhat anxious today. She is a little tachypneic. As she is aphasic it is difficult to assess specifically what she needs. She has a very congested cough as well. Ongoing combination antibiotic therapy for the pneumonia. Nebulizer treatments scheduled and as needed as well as oxygen supplementation for the acute on chronic respiratory failure with COPD. Aphasia from old stroke-I will review old records to see if she had a modified barium swallow at this facility. She is high risk aspiration. This would certainly have a direct effect on prognosis. 07/16/2019- Once again she appears frightened or anxious. Breathing appears to be comfortable. I did not appreciate any rhonchi. She still has a somewhat congested cough. She remains on nasal cannula. Ongoing oxygen supplementation and nebulizer treatments. Marked aphasia-hard to know if it is just expressive. I cannot tell if she understands questions or not. She certainly does not answer questions. Looks like she attempts to verbalize on rare occasion. Patient has decreased muscle mass. With her aphasia and history of stroke her intake varies. Her BMI is only 17 at this point. Intake varies between 75 and 25%. 07/17/2019- Nursing reports that the patient was anxious to eat. Whenever feeding her she would grab her hand and pull it towards her mouth. Pneumonia is improved. Azithromycin and ceftriaxone have normalized her white count and she is wide awake and appears to be breathing comfortably. We will continue nasal cannula supplementation and attempt to wean oxygen to off. Aphasia from old stroke. Unable to obtain verbal feedback from the patient. Her appetite improved but still varies. BMI is still very low. Continue to encourage and assist with meals. Consider protein supplements. Urine culture reveals Pseudomonas and E. coli. The patient is improving on antibiotics aimed at pneumonia. This is a catheter obtained specimen and certainly could be asymptomatic bacteriuria. Physical therapy for fractured right humerus and right hip. She should return to the senior care facility for ongoing rehab. At this point family should certainly consider long-term placement. The patient also had rib fractures when she fell and sustained the fractured hip, humerus and ribs. Fractures were from a mechanical fall. Unable to say for certain if there is enough bone thinning to be considered a pathologic fracture. - Time Time Spent with patient: Less than 15 minutes Medications reviewed and adjusted accordingly: Yes Anticipated discharge: SNF
[2019-07-17] MEDS: HYDROCODONE/ACETAMINOPHEN 5-325 MG TABLET PO PRN (15:12)
[2019-07-17] MEDS ORDERED: METOPROLOL TARTRATE 25 MG TABLET PO ONE (17:00)
[2019-07-17] MEDS: METOPROLOL TARTRATE 25 MG TABLET PO SCH (22:48)
[2019-07-18] MEDS: IPRATROPIUM/ALBUTEROL 0.5-2.5 MG/3 ML AMPUL NEB SCH ×4 (01:49→20:18)
[2019-07-18] MEDS: HEPARIN SOD (PORCINE) 5,000 UNIT/ML 1 ML VIAL SUBCUT SCH ×3 (05:51→22:14)
[2019-07-18] MEDS: BUDESONIDE NEB 0.5 MG/2 ML AMPUL NEB SCH ×2 (07:43→20:18)
[2019-07-18] MEDS: CEFTRIAXONE 1 GM/D5W RTU 1 GM/50 ML RTUPB IV SCH (08:48)
[2019-07-18] MEDS: METOPROLOL TARTRATE 25 MG TABLET PO SCH ×2 (08:48→22:14)
[2019-07-18] MEDS: AZITHROMYCIN 500 MG in DEXTROSE 5%-WATER 250 ML IV SCH (09:39)
--- NOTE | 2019-07-18 18:00 | PDOC PROGRESS REPORT ---
Subjective Progress Note for:: 07/18/19 Reason For Visit: PNEUMONIA Physical Exam Vital Signs: Temp Pulse Resp BP Pulse Ox 98.8 F 109 H 18 127/78 H 97 07/18/19 15:19 07/18/19 15:19 07/18/19 15:19 07/18/19 15:19 07/18/19 16:00 Pulse Oximeter Continuous Start: 07/14/19 09:20 Freq: RTQ4 Status: Active Protocol: Document 07/18/19 16:00 [facility] (Rec: 07/18/19 16:11 [facility] [id number]) Pulse Oximetry Assessment Oxygen Saturation (92-100) 97 Oxygen Flow Rate (L/min) 1.5 Oxygen Delivery Method Nasal Cannula Equipment Usage Equipment in Use Continuous SpO2 Machine # 5 Intake & Output 07/17/19 07/18/19 07/19/19 06:59 06:59 06:59 Intake Total 640 820 540 Output Total 1550 2050 Balance -910 -1230 540 Weight 45 kg 44.2 kg General appearance: PRESENT: no acute distress, thin, well-developed Head exam: PRESENT: atraumatic, normocephalic Eye exam: PRESENT: conjunctiva pink, EOMI, PERRLA. ABSENT: scleral icterus Mouth exam: PRESENT: moist, tongue midline Teeth exam: PRESENT: edentulous Neck exam: ABSENT: carotid bruit, JVD, lymphadenopathy, thyromegaly Respiratory exam: PRESENT: clear to auscultation anthony, decreased breath sounds - Poor inspiratory effort, symmetrical, unlabored. ABSENT: rales, rhonchi, wheezes Cardiovascular exam: PRESENT: RRR, +S1, +S2. ABSENT: diastolic murmur, rubs, systolic murmur Pulses: PRESENT: normal dorsalis pedis pul Vascular exam: PRESENT: normal capillary refill GI/Abdominal exam: PRESENT: normal bowel sounds, soft. ABSENT: distended, guarding, mass, organolmegaly, rebound, tenderness Rectal exam: PRESENT: deferred Extremities exam: PRESENT: tenderness. ABSENT: calf tenderness, clubbing, full ROM - Right upper extremity to sling; recent right hip repair., pedal edema Neurological exam: PRESENT: alert, awake, CN II-XII grossly intact, aphasic, other - Awake and oriented; difficulty assessing mental status. Fidgeting with blanket; does not follow commands. At baseline.. ABSENT: motor sensory deficit Psychiatric exam: PRESENT: anxious - Anxious appearing facial expression, u nusual affect Skin exam: PRESENT: dry, intact, warm. ABSENT: cyanosis, rash Results Laboratory Results: 07/17/19 05:15 07/17/19 05:15 07/14/19 06:47 Boateng Catheter Urine Culture - Final Pseudomonas Aeruginosa Enterococcus Faecalis(Group D) 07/14/19 04:50 Troponin I 0.267 Impressions: Chest X-Ray 07/14/19 04:55 IMPRESSION: 1. New volume loss in the left lung base concerning for an infectious or inflammatory process and possible small left pleural effusion. 2. Mild chronic fibrotic changes versus acute inflammatory changes in the right lung base. 3. Chronic pleural parenchymal scarring in the left lung apex. 4. Hyperinflation of the lungs. 5. Acute displaced fracture through the right humeral neck and diffuse osteopenia Assessment and Plan - Diagnosis (1) Acute respiratory failure with hypoxia and hypercapnia Is this a current diagnosis for this admission?: Yes Plan: Improved; secondary to hospital-associated pneumonia, right rib fractures, and underlying COPD. Currently maintaining oxygen saturation in the high 90s on minimal supplemental oxygen via nasal cannula. We will continue supplemental oxygen as needed to maintain saturations greater than 89%. Continue scheduled and as needed nebulizer treatments. Remaining therapy directed towards pneumonia as outlined below. (2) Hospital-acquired pneumonia Is this a current diagnosis for this admission?: Yes Plan: Improved; leukocytosis has resolved,afebrile greater than 48 hours, tachycardia is improved. Blood cultures are negative at 4 days. Sputum cultures not obtained. Patient was empirically placed on IV azithromycin and Rocephin. Will consider discontinuing antibiotics tomorrow if remains afebrile with normal WBCs. Continue supplemental oxygen as needed to maintain saturations greater than 89%. Continue scheduled and as needed nebulizer treatments. Robitussin 4 times daily as needed. Encourage mobility, incentive spirometer and flutter valve if patient is able to participate. (3) Chronic obstructive pulmonary disease Qualifiers: COPD type: emphysema Is this a current diagnosis for this admission?: Yes Plan: Emphysema by chest x-ray. Does not appear to be having an exacerbation at this time despite current HAP diagnosis. Continue antibiotics, supplemental oxygen, nebulizer treatment, pulmonary toilet as described above. No indications at this time for systemic steroid therapy. (4) Closed intertrochanteric fracture of right hip Qualifiers: Encounter type: subsequent encounter Is this a current diagnosis for this admission?: Yes Plan: Status post orthopedic repair during the last admission. PT consulted. Analgesics as needed. Plan to return to SNF at discharge. Follow-up with outpatient orthopedics as previously scheduled. (5) Right humeral fracture Qualifiers: Encounter type: subsequent encounter Humerus Location: surgical neck Fracture type: closed Fracture morphology: 2-part Fracture alignment: d isplaced Is this a current diagnosis for this admission?: Yes Plan: Sling for comfort. Analgesics as needed. Follow-up with outpatient orthopedics as previously scheduled. (6) Severe protein-calorie malnutrition Is this a current diagnosis for this admission?: Yes Plan: BMI 16.2. Continue regular diet. Registered dietitian is consulted. Consider Remeron. (7) Asymptomatic bacteriuria Is this a current diagnosis for this admission?: Yes Plan: Blood cultures are negative at 4 days. Urine culture demonstrates Pseudomonas and Enterococcus faecalis. On day #4 of IV azithromycin and Rocephin. Likely asymptomatic bacteremia; will not require further antibiotic treatment at discharge. (8) Dysphasia Is this a current diagnosis for this admission?: Yes Plan: Patient with expressive aphasia from prior CVA. Discussed with speech therapy today; will plan for modified barium swallow study tomorrow. Diet consistency per ST's recommendations. (9) Anxiety Is this a current diagnosis for this admission?: Yes Plan: Patient with anxious disposition; unfortunately completely aphasic from a prior CVA. She does not follow directions and is unable to communicate nonverbally. We will try twice daily BuSpar. - Time Time Spent with patient: 15-24 minutes Medications reviewed and adjusted accordingly: Yes Anticipated discharge: SNF Within: within 48 hours
[2019-07-18] MEDS: ACETAMINOPHEN 325 MG TABLET PO SCH ×2 (18:15→23:09)
[2019-07-18] MEDS: BUSPIRONE HCL 10 MG TABLET PO SCH (22:14)
[2019-07-19] MEDS: IPRATROPIUM/ALBUTEROL 0.5-2.5 MG/3 ML AMPUL NEB SCH ×4 (01:59→23:57)
[2019-07-19 04:57] LABS: HEMATOCRIT 29.7 % (36.0-47.0); HEMOGLOBIN 9.8 g/dL (12.0-15.5); MEAN CORPUSCULAR HEMOGLOBIN 30.7 pg (27.0-33.4); MEAN CORPUSCULAR VOLUME 93 fl (80-97); PLATELET COUNT 362 10^3/uL (150-450); RED BLOOD COUNT 3.19 10^6/uL (3.72-5.28); RED CELL DISTRIBUTION WIDTH 14.1 % (11.5-14.0); WHITE BLOOD COUNT 12.4 10^3/uL (4.0-10.5)
[2019-07-19 05:17] LABS: ANION GAP 10 (5-19); BLOOD UREA NITROGEN 19 mg/dL (7-20); CARBON DIOXIDE 24 mmol/L (22-30); CHLORIDE 100 mmol/L (98-107); GLUCOSE 133 mg/dL (75-110); POTASSIUM 4.5 mmol/L (3.6-5.0)
[2019-07-19] MEDS: HEPARIN SOD (PORCINE) 5,000 UNIT/ML 1 ML VIAL SUBCUT SCH ×3 (05:44→22:18)
[2019-07-19] MEDS: ACETAMINOPHEN 325 MG TABLET PO SCH ×3 (05:50→18:02)
[2019-07-19] MEDS: BUDESONIDE NEB 0.5 MG/2 ML AMPUL NEB SCH ×2 (07:44→20:12)
[2019-07-19] MEDS: BUSPIRONE HCL 10 MG TABLET PO SCH ×2 (08:06→22:18)
--- NOTE | 2019-07-19 10:24 | RADIOLOGY REPORT (SQ) ---
EXAM DESCRIPTION: CHEST SINGLE VIEW COMPLETED DATE/TIME: 07/19/2019 10:05 am REASON FOR STUDY: dyspnea, hypoxia COMPARISON: 07/14/2019 EXAM PARAMETERS: NUMBER OF VIEWS: One view. TECHNIQUE: Single frontal radiographic view of the chest acquired. RADIATION DOSE: NA LIMITATIONS: None. FINDINGS: LUNGS AND PLEURA: Improved left basilar aeration from prior. Unchanged left apical opacit y and pleural thickening. Extensive emphysematous change with hyperinflation and flattening of the h emidiaphragms. Chronic interstitial changes, stable. MEDIASTINUM AND HILAR STRUCTURES: No masses. Contour normal. HEART AND VASCULAR STRUCTURES: Normal heart size. Aortic atherosclerosis. BONES: Unchanged right surgical neck humeral fracture. No new bony abnormality. HARDWARE: None in the chest. OTHER: No other significant finding. IMPRESSION: 1. Emphysematous change with improved left basilar aeration. 2. Pleuroparenchymal change at the left lung apex, stable from recent prior but increased from more remote priors. Findings may represent infection or chronic scarring although although underlying les ion is not excluded. Consider CT for further characterization. 3. Unchanged right surgical neck humerus fracture. TECHNICAL DOCUMENTATION: JOB ID: [id number] [employer]- All Rights Reserved Reading location - IP/workstation name: [email or web address]
--- NOTE | 2019-07-19 10:38 | ST Inp Modified Barium Swallow ---
Medical Diagnosis - Medical Diagnoses Medical Diagnosis Description & ICD-10 Code(s): pneumonia - ICD-10 Tx Diagnosis Coding (1) Dysphagia ICD-10 Code(s): R13.10 - DYSPHAGIA, UNSPECIFIED ST Inpatient [facility] [place] General Date: 07/19/19 Date of Onset: 07/17/19 - order date - History -: Medical - Patient with history of old stroke and residual right side weakness, COPD, admitted after fall and developing pneumonia. Rule out aspiration on water per physician order Medications: Medications Reviewed Allergies: No known allergies - Subjective Current Nutritional Means: PO Current PO Diet: Mechanical- ground, Regular - liquids Current Symptoms: Coughing, Pneumonia Pain: no signs/symptoms of pain - Objective Assessment: Upright, Left Lateral - Food Trials Food Trials Used: Thin liquids, Pureed, Regular The Patient: fed by ST, via cup, via spoon, via straw - Assessment Labial Function: Within Normal Limits Lingual Function: Within Normal Limits Mandibular Function: Within Normal Limits Laryngeal Function: no volitional cough/clear - unable to follow directions for volitional cough/clear/swallow and voicing - Pharyngeal Stage Initiation of Pharyngeal Stage: Delayed - oral holding,3-5 seconds, no premature spillage Decreased Laryngeal Elevation: No Reduced Velo-Pharyngeal Closure: no Reduced Pressure Generation: Yes - mild Reduced Tongue Base Retraction: Yes - mild Pre-Swallowing Pooling in Valleculae: None Pre-Swallowing Pooling in Pyriforms: None Reduced Thyro-Hyiod Approximation: No Reduced Epiglottic Excursion: No Reduced Pharyngeal Peristalsis: No Multiple Swallows With: Cleared w/ Liquid Assist Post Swallow Residuals in Valleculae: Mild Post Swallow Residuals in Pyriforms: None Pahryngeal Stage Comments: Patient demonstrated some oral holding, however, pharyngeal phase swallow is within functional limits, in that there was no material entering the laryngeal vestibule, and no significant residue remaining after the swallow. The patient did demonstrate a habitual cough after sips of water frequently via straw, however, no material penetrated or aspirated when the patient was coughing. Multiple trials completed to ensure no aspiration occuring to cause coughing. - Impression/Summary Laryngeal Penetration: No Tracheal Aspiration: no Patient Presents With: Oral stage dysphagia, Mild-Moderate - due to holding and dentition Risk of Aspiration: Mild - Recommendations Solid Diet Recommendations: Mechanical Soft, Ground Meat Liquid Diet Recommendations: Thin Strict Aspitarion Precautions: Yes Dysphagia Therapy with EQUIPMENT SPECIALIST: No Recommended Techniques: Fully Upright During Meal, Small Bites and Sips, Alternate Bites/Sips - Time Total Time: 30 Total Timed Minutes: 30
[2019-07-19] MEDS: METOPROLOL TARTRATE 25 MG TABLET PO SCH ×3 (10:47→22:18)
[2019-07-19] MEDS: CEFTRIAXONE 1 GM/D5W RTU 1 GM/50 ML RTUPB IV SCH (10:48)
[2019-07-19] MEDS: AZITHROMYCIN 500 MG in DEXTROSE 5%-WATER 250 ML IV SCH (11:17)
--- NOTE | 2019-07-19 11:59 | RADIOLOGY REPORT (SQ) ---
EXAM DESCRIPTION: AMY SWALLOW COMPLETED DATE/TIME: 07/19/2019 10:31 am REASON FOR STUDY: Coughing, aspiration of water COMPARISON: None. TECHNIQUE: Videofluoroscopic swallowing examination was performed in conjunction with speech patholo gy. Videofluoroscopic imaging was obtained and reviewed and these are the findings: RADIATION DOSE: Fluoro time 2.29 minutes 2 images saved to PACS. LIMITATIONS: None FINDINGS: The patient was brought into the fluoro room and placed upright on a modified barium swall ow chair. The patient was then given multiple consistencies mixed with barium to swallow under live fluoroscopic video guidance. According to the Speech Pathologist there was no penetration or aspirat ion. Please refer to the speech pathology report for further details. IMPRESSION: NO EVIDENCE OF PENETRATION OR ASPIRATION. PLEASE SEE SPEECH PATHOLOGIST REPORT FOR OTHER FINDINGS AND RECOMMENDATIONS. COMMENT: None Quality ID [id number]: Final reports for procedures using fluoroscopy that document radiation exposure dylon nani, or exposure time and number of fluorographic images (if radiation exposure indices are not avail able) TECHNICAL DOCUMENTATION: JOB ID: [id number] [employer]- All Rights Reserved Reading location - IP/workstation name: [email or web address]
[2019-07-19] MEDS ORDERED: LEVALBUTEROL HCL NEB 1.25 MG/3 ML AMPUL NEB PRN (18:00)
--- NOTE | 2019-07-19 18:01 | PDOC PROGRESS REPORT ---
Subjective Progress Note for:: 07/19/19 Subjective:: The patient is a 78-year-old female with a past medical history of CVA, residual right-sided weakness and total expressive aphasia), hypertension, COPD, and dementia who was recently admitted to our facility following a fall resulting in a right hip fracture, right shoulder fracture, and multiple rib fractures. She was discharged to SNF for short-term rehab several days ago but returned with acute on chronic respiratory failure related to hospital-acquired pneumonia in the setting of COPD and rib fractures. Patient was seen on afternoon rounds. She was found sitting up in bed on supplemental oxygen via nasal cannula at 1 lpm; she is not home O2 depndent. She is awake and alert, makes eye contact, does mouth the word hello, but then does not answer any further questions make any further attempts to communicate, or follow directions. She appears much more comfortable today. ROS is limited secondary to mental status and communication. She does appear to be comfortable and not in any acute distress. No concerns per nursing. Reason For Visit: PNEUMONIA Physical Exam Vital Signs: Temp Pulse Resp BP Pulse Ox 98.3 F 99 18 175/57 H 95 07/19/19 11:44 07/19/19 14:00 07/19/19 13:55 07/19/19 11:44 07/19/19 16:00 Pulse Oximeter Continuous Start: 07/14/19 09:20 Freq: RTQ4 Status: Active Protocol: Document 07/19/19 16:00 [facility] (Rec: 07/19/19 16:11 [facility] [id number]) Pulse Oximetry Assessment Oxygen Saturation (92-100) 95 Oxygen Flow Rate (L/min) 1 Oxygen Delivery Method Nasal Cannula Fraction of Inspired Oxygen (FIO2) 24 Equipment Usage Equipment in Use Continuous Pulse Oximeter 24 Hour Charge Charge Now Continuous SpO2 Machine # [id number] Intake & Output 07/18/19 07/19/19 07/20/19 06:59 06:59 06:59 Intake Total 820 1020 1140 Output Total 2050 1375 200 Balance -1230 -355 940 Weight 44.2 kg 43.6 kg General appearance: PRESENT: no acute distress, thin, well-developed Head exam: PRESENT: atraumatic, normocephalic Eye exam: PRESENT: conjunctiva pink, EOMI, PERRLA. ABSENT: scleral icterus Ear exam: PRESENT: normal external ear exam Mouth exam: PRESENT: moist, tongue midline Teeth exam: PRESENT: edentulous Neck exam: ABSENT: carotid bruit, JVD, lymphadenopathy, thyromegaly Respiratory exam: PRESENT: clear to auscultation anthony, symmetrical, unlabored. ABSENT: rales, rhonchi, wheezes Cardiovascular exam: PRESENT: RRR, +S1, +S2. ABSENT: diastolic murmur, rubs, systolic murmur Pulses: PRESENT: normal dorsalis pedis pul Vascular exam: PRESENT: normal capillary refill GI/Abdominal exam: PRESENT: normal bowel sounds, soft. ABSENT: distended, guarding, mass, organolmegaly, rebound, tenderness Rectal exam: PRESENT: deferred Extremities exam: PRESENT: tenderness, other - Right upper extremity to sling; recent right hip repair. ABSENT: calf tenderness, clubbing, full ROM, pedal edema Neurological exam: PRESENT: alert, awake, CN II-XII grossly intact, aphasic, other - At baseline. ABSENT: motor sensory deficit Psychiatric exam: PRESENT: appropriate affect, normal mood. ABSENT: homicidal ideation, suicidal ideation Skin exam: PRESENT: dry, intact, warm. ABSENT: cyanosis, rash Results Laboratory Results: 07/19/19 03:53 07/19/19 03:53 07/19/19 07/19/19 03:53 03:53 WBC 12.4 H RBC 3.19 L Hgb 9.8 L Hct 29.7 L MCV 93 MCH 30.7 MCHC 33.0 RDW 14.1 H Plt Count 362 Sodium 133.7 L Potassium 4.5 Chloride 100 Carbon Dioxide 24 Anion Gap 10 BUN 19 Creatinine 0.84 Est GFR ( Amer) > 60 Glucose 133 H Calcium 9.0 07/14/19 07:23 Blood Blood Culture - Final NO GROWTH IN 5 DAYS 07/14/19 05:36 Blood Blood Culture - Final NO GROWTH IN 5 DAYS 07/14/19 04:50 Troponin I 0.267 Impressions: Chest X-Ray 07/19/19 00:00 IMPRESSION: 1. Emphysematous change with improved left basilar aeration. 2. Pleuroparenchymal change at the left lung apex, stable from recent prior but increased from more remote priors. Findings may represent infection or chronic scarring although although underlying lesion is not excluded. Consider CT for further characterization. 3. Unchanged right surgical neck humerus fracture. Modified Barium Swallow 07/19/19 00:00 IMPRESSION: NO EVIDENCE OF PENETRATION OR ASPIRATION. PLEASE SEE SPEECH PATHOLOGIST REPORT FOR OTHER FINDINGS AND RECOMMENDATIONS. Assessment and Plan - Diagnosis (1) Acute respiratory failure with hypoxia and hypercapnia Is this a current diagnosis for this admission?: Yes Plan: Improved; secondary to hospital-associated pneumonia, right rib fractures, and underlying COPD. Currently maintaining oxygen saturation in the high 90s on minimal supplemental oxygen via nasal cannula. Will ask nursing to begin weaning oxygen. We will continue supplemental oxygen as needed to maintain saturations greater than 89%. Continue scheduled and as needed nebulizer treatments. Remaining therapy directed towards pneumonia as outlined below. (2) Hospital-acquired pneumonia Is this a current diagnosis for this admission?: Yes Plan: Improved; leukocytosis has resolved,afebrile greater than 48 hours, tachycardia is improved. Blood cultures are negative at 4 days. Sputum cultures not obtained. Patient was empirically placed on IV azithromycin and Rocephin. Will discontinue antibiotics today; received 5 days of therapy. Continue supplemental oxygen as needed to maintain saturations greater than 89%. Continue scheduled and as needed nebulizer treatments. Robitussin 4 times daily as needed. Encourage mobility, incentive spirometer and flutter valve if patient is able to participate. (3) Chronic obstructive pulmonary disease Qualifiers: COPD type: emphysema Is this a current diagnosis for this admission?: Yes Plan: Emphysema by chest x-ray. Does not appear to be having an exacerbation at this time despite current HAP diagnosis. Continue antibiotics, supplemental oxygen, nebulizer treatment, pulmonary toilet as described above. No indications at this time for systemic steroid therapy. (4) Closed intertrochanteric fracture of right hip Qualifiers: Encounter type: subsequent encounter Is this a current diagnosis for this admission?: Yes Plan: Status post orthopedic repair during the last admission. PT consulted. Analgesics as needed. Plan to return to SNF at discharge. Follow-up with outpatient orthopedics as previously scheduled. (5) Right humeral fracture Qualifiers: Encounter type: subsequent encounter Humerus Location: surgical neck Fracture type: closed Fracture morphology: 2-part Fracture alignment: displaced Is this a current diagnosis for this admission?: Yes Plan: Sling for comfort. Analgesics as needed. Follow-up with outpatient orthopedics as previously scheduled. (6) Severe protein-calorie malnutrition Is this a current diagnosis for this admission?: Yes Plan: BMI 16.2. Continue regular diet. Registered dietitian is consulted. Consider Norma. (7) Asymptomatic bacteriuria Is this a current diagnosis for this admission?: Yes Plan: Blood cultures are negative at 4 days. Urine culture demonstrates Pseudomonas and Enterococcus faecalis. On day #4 of IV azithromycin and Rocephin. Likely asymptomatic bacteremia; will not require further antibiotic treatment at discharge. (8) Dysphasia Is this a current diagnosis for this admission?: Yes Plan: Patient with expressive aphasia from prior CVA. Discussed with speech therapy today; passed MBSS. No signs of aspiration. Diet consistency per ST's recommendations. (9) Anxiety Is this a current diagnosis for this admission?: Yes Plan: Improved appearance/facial expressions today. Unfortunately completely aphasic from a prior CVA. She does not follow directions and is unable to communicate nonverbally. Continue twice daily BuSpar. - Time Time Spent with patient: 15-24 minutes Medications reviewed and adjusted accordingly: Yes Anticipated discharge: Acute Rehab Within: within 24 hours
[2019-07-20] MEDS: ACETAMINOPHEN 325 MG TABLET PO SCH ×4 (00:40→17:41)
[2019-07-20] MEDS: HEPARIN SOD (PORCINE) 5,000 UNIT/ML 1 ML VIAL SUBCUT SCH ×2 (05:38→14:48)
[2019-07-20] MEDS: IPRATROPIUM/ALBUTEROL 0.5-2.5 MG/3 ML AMPUL NEB SCH ×2 (07:35→15:40)
[2019-07-20] MEDS: BUDESONIDE NEB 0.5 MG/2 ML AMPUL NEB SCH (07:35)
[2019-07-20 10:59] VITALS: BP 117/63
[2019-07-20] MEDS: BUSPIRONE HCL 10 MG TABLET PO SCH (11:03)
[2019-07-20] MEDS: METOPROLOL TARTRATE 25 MG TABLET PO SCH (11:06)
--- NOTE | 2019-07-20 11:52 | PDOC TRANSFER SUMMARY ---
Impression - Admit/DC Date/PCP Admission Date/Primary Care Provider: 07/14/19 08:28 STEPHANIE NAVARRO MD Discharge Date: 07/20/19 - Discharge Diagnosis (1) Acute respiratory failure with hypoxia and hypercapnia Is this a current diagnosis for this admission?: Yes (2) Hospital-acquired pneumonia Is this a current diagnosis for this admission?: Yes (3) Chronic obstructive pulmonary disease Is this a current diagnosis for this admission?: Yes (4) Closed intertrochanteric fracture of right hip Is this a current diagnosis for this admission?: Yes (5) Right humeral fracture Is this a current diagnosis for this admission?: Yes (6) Severe protein-calorie malnutrition Is this a current diagnosis for this admission?: Yes (7) Asymptomatic bacteriuria Is this a current diagnosis for this admission?: Yes (8) Dysphasia Is this a current diagnosis for this admission?: Yes (9) Anxiety Is this a current diagnosis for this admission?: Yes - Additional Information Resuscitation Status: Full Code Discharge Diet: Regular - mechanical soft Discharge Activity: Activity As Tolerated, Balance Activity w/Rest, Slowly Increase Activity, Supervised Activity Referrals: STEPHANIE NAVARRO MD [Primary Care Provider] - Follow up as needed Prescriptions: Buspirone HCl [Buspar 10 mg Tablet] 5 mg PO ASDIR PRN #45 tablet PRN Reason: Ipratropium/Albuterol Sulfate [Duoneb 3 ml Ampul] 3 ml NEB RTQ12 #60 vial.neb Metoprolol Tartrate [Lopressor 25 mg Tablet] 25 mg PO Q12 #60 tablet Levalbuterol HCl [Xopenex Neb 1.25 mg/3 ml Ampul] 1.25 mg NEB RTQ4HP PRN #20 vial.neb PRN Reason: Home Medications: Acetaminophen [Tylenol 325 mg Tablet] 650 mg PO Q6 tablet 07/20/19 Buspirone HCl [Buspar 10 mg Tablet] 5 mg PO ASDIR PRN #45 tablet 07/20/19 Guaifenesin [Robitussin Syrup 200 mg/10 ml Ud Cup] 200 mg PO QIDP udc 07/20/19 Ipratropium/Albuterol Sulfate [Duoneb 3 ml Ampul] 3 ml NEB RTQ12 #60 vial.neb 07/20/19 Levalbuterol HCl [Xopenex Neb 1.25 mg/3 ml Ampul] 1.25 mg NEB RTQ4HP PRN #20 vial.neb 07/20/19 Metoprolol Tartrate [Lopressor 25 mg Tablet] 25 mg PO Q12 #60 tablet 07/20/19 History of Present Illiness History of Present Illness: Per H&P by Dr. Hsu: ELIZA ALSTON is a 78 year old female who has a history of stroke. She had a fall at home and sustained multiple fractures. She had surgery to correct her hip fracture. She has a right shoulder fracture that is in a sling and she has multiple rib fractures. She was discharged from this facility several days ago. They noted increased shortness of breath and abnormal breath sounds starting last evening. They seem to worsen this morning and the patient was referred to the emergency department for further evaluation. In the emergency room she was found to have infiltrates/consolidation at both lung bases as well as some pulmonary fibrosis. Her white blood cell count was also elevated and she was tachycardic. In addition the urinalysis showed white cells with possible infection. The patient was started on antibiotics and BiPAP. She was referred to the hospital service for admission. Hospital Course Hospital Course: The patient was admitted to [facility] on continuous pulse oximetry and cardiac telemetry. She was empirically treated for hospital associated pneumonia with IV vancomycin and Rocephin. She received a total of 5 days of therapy. She was further supported with supplemental oxygen, scheduled and as needed nebulizer treatments, Robitussin, and pulmonary toilet as patient was able to tolerate. She did not require steroid therapy for COPD during this admission. Patient's blood cultures were negative at 5 days; urine culture did show Pseudom onas echinosis and Enterococcus faecalis (adequately treated with the above- mentioned antibiotic's). The patient gradually improved and has been weaned off of supplemental oxygen. She did have a modified barium swallow study done; no evidence of aspiration. Speech therapy evaluation and recommendations are for continued mechanical soft diet with thin liquids and aspiration precautions. The patient is now medically stable for discharge; to return to [facility] where she was undergoing rehabilitation for her recent right hip and right humerus fractures. The patient should follow-up with her primary care provider within 1 week. Keep previously scheduled appointment with orthopedics. Take medications as prescribed. Regular/mechanical soft diet with aspiration precautions. Return to emergency department as needed for concerning symptoms. Physical Exam Vital Signs: Temp Pulse Resp BP Pulse Ox 98.3 F 98 17 117/63 93 07/20/19 08:04 07/20/19 08:04 07/20/19 08:04 07/20/19 08:04 07/20/19 08:04 Pulse Oximeter Continuous Start: 07/14/19 09:20 Freq: RTQ4 Status: Active Protocol: Document 07/20/19 08:00 [facility] (Rec: 07/20/19 08:43 [facility] [id number]) Pulse Oximetry Assessment Oxygen Saturation (92-100) 95 Oxygen Delivery Method Room Air Fraction of Inspired Oxygen (FIO2) 21 Equipment Usage Equipment in Use Continuous SpO2 Machine # 5 Intake & Output 07/19/19 07/20/19 07/21/19 06:59 06:59 06:59 Intake Total 1020 1140 Output Total 1375 200 Balance -355 940 Weight 43.6 kg 43.3 kg General appearance: PRESENT: no acute distress, thin, well-developed Head exam: PRESENT: atraumatic, normocephalic Eye exam: PRESENT: conjunctiva pink, EOMI, PERRLA. ABSENT: scleral icterus Ear exam: PRESENT: normal external ear exam Mouth exam: PRESENT: moist, tongue midline Neck exam: ABSENT: carotid bruit, JVD, lymphadenopathy, thyromegaly Respiratory exam: PRESENT: clear to auscultation anthony, decreased breath sounds - bibasilar; poor inspiratory effort (does not follow directions/participate in exam), symmetrical, unlabored, other - room air. ABSENT: rales, rhonchi, wheezes Cardiovascular exam: PRESENT: RRR, +S1, +S2. ABSENT: diastolic murmur, rubs, systolic murmur Pulses: PRESENT: normal dorsalis pedis pul Vascular exam: PRESENT: normal capillary refill GI/Abdominal exam: PRESENT: normal bowel sounds, soft. ABSENT: distended, guarding, mass, organolmegaly, rebound, tenderness Rectal exam: PRESENT: deferred Extremities exam: ABSENT: calf tenderness, clubbing, full ROM, pedal edema Musculoskeletal exam: PRESENT: other - Right upper extremity to sling; recent right hip repair Neurological exam: PRESENT: alert, awake, CN II-XII grossly intact, aphasic, other - At baseline; nonverbal, does not follow directions. ABSENT: motor sensory deficit Psychiatric exam: PRESENT: appropriate affect, normal mood. ABSENT: homicidal ideation, suicidal ideation Skin exam: PRESENT: dry, intact, warm. ABSENT: cyanosis, rash Results Laboratory Results: WBC 12.4 10^3/uL (4.0-10.5) H 07/19/19 03:53 RBC 3.19 10^6/uL (3.72-5.28) L 07/19/19 03:53 Hgb 9.8 g/dL (12.0-15.5) L 07/19/19 03:53 Hct 29.7 % (36.0-47.0) L 07/19/19 03:53 MCV 93 fl (80-97) 07/19/19 03:53 MCH 30.7 pg (27.0-33.4) 07/19/19 03:53 MCHC 33.0 g/dL (32.0-36.0) 07/19/19 03:53 RDW 14.1 % (11.5-14.0) H 07/19/19 03:53 Plt Count 362 10^3/uL (150-450) 07/19/19 03:53 Lymph % (Auto) 13.5 % (13-45) 07/17/19 05:15 [place] % (Auto) 11.0 % (3-13) 07/17/19 05:15 Eos % (Auto) 4.2 % (0-6) 07/17/19 05:15 Baso % (Auto) 0.6 % (0-2) 07/17/19 05:15 Absolute Neuts (auto) 6.7 10^3/uL (1.7-8.2) 07/17/19 05:15 Absolute Lymphs (auto) 1.3 10^3/uL (0.5-4.7) 07/17/19 05:15 Absolute Monos (auto) 1.0 10^3/uL (0.1-1.4) 07/17/19 05:15 Absolute Eos (auto) 0.4 10^3/uL (0.0-0.6) 07/17/19 05:15 Absolute Basos (auto) 0.1 10^3/uL (0.0-0.2) 07/17/19 05:15 Seg Neutrophils % 70.7 % (42-78) 07/17/19 05:15 PT 12.8 SEC (11.4-15.4) 07/14/19 04:50 INR 0.96 07/14/19 04:50 APTT 31.7 SEC (23.5-35.8) 07/14/19 04:50 Carbonic Acid 1.21 mmol/L (1.05-1.35) 07/14/19 14:45 HCO3/H2CO3 Ratio 20:1 07/14/19 14:45 ABG pH 7.41 (7.35-7.45) 07/14/19 14:45 ABG pCO2 40.2 mmHg (35-45) 07/14/19 14:45 ABG pO2 132.4 mmHg (80-100) H 07/14/19 14:45 ABG HCO3 25.0 mmol/L (20-24) H 07/14/19 14:45 ABG Total CO2 26.3 mmol/L (21-25) H 07/14/19 14:45 ABG O2 Saturation 98.7 % (94-98) H 07/14/19 14:45 ABG Base Excess 0.4 mmol/L 07/14/19 14:45 FiO2 40% 07/14/19 14:45 Sodium 133.7 mmol/L (137-145) L 07/19/19 03:53 Potassium 4.5 mmol/L (3.6-5.0) 07/19/19 03:53 Chloride 100 mmol/L (98-107) 07/19/19 03:53 Carbon Dioxide 24 mmol/L (22-30) 07/19/19 03:53 Anion Gap 10 (5-19) 07/19/19 03:53 BUN 19 mg/dL (7-20) 07/19/19 03:53 Creatinine 0.84 mg/dL (0.52-1.25) 07/19/19 03:53 Est GFR ( Amer) > 60 (>60) 07/19/19 03:53 Est GFR (MDRD) Non-Af > 60 (>60) 07/19/19 03:53 Glucose 133 mg/dL (75-110) H 07/19/19 03:53 Lactic Acid 0.9 mmol/L (0.7-2.1) 07/14/19 05:36 Calcium 9.0 mg/dL (8.4-10.2) 07/19/19 03:53 Magnesium 1.9 mg/dL (1.6-2.3) 07/17/19 05:15 Total Bilirubin 0.9 mg/dL (0.2-1.3) 07/14/19 04:50 Direct Bilirubin 0.2 mg/dL (0.0-0.4) 07/14/19 04:50 Neonat Total Bilirubin Not Reportable 07/14/19 04:50 Neonat Direct Bilirubin Not Reportable 07/14/19 04:50 Neonat Indirect Bili Not Reportable 07/14/19 04:50 AST 33 U/L (14-36) 07/14/19 04:50 ALT 14 U/L (<35) 07/14/19 04:50 Alkaline Phosphatase 94 U/L (38-126) 07/14/19 04:50 Troponin I 0.267 ng/mL 07/14/19 04:50 Total Protein 6.2 g/dL (6.3-8.2) L 07/14/19 04:50 Albumin 3.1 g/dL (3.5-5.0) L 07/14/19 04:50 Prealbumin 9.8 mg/dL (17.6-36.0) L 07/17/19 05:15 Urine Color YELLOW 07/14/19 06:47 Urine Appearance SLIGHTLY-CLOUDY 07/14/19 06:47 Urine pH 7.0 (5.0-9.0) 07/14/19 06:47 Ur Specific [place] 1.014 07/14/19 06:47 Urine Protein 30 mg/dL (NEGATIVE) H 07/14/19 06:47 Urine Glucose (UA) NEGATIVE mg/dL (NEGATIVE) 07/14/19 06:47 Urine Ketones NEGATIVE mg/dL (NEGATIVE) 07/14/19 06:47 Urine Blood SMALL (NEGATIVE) H 07/14/19 06:47 Urine Nitrite POSITIVE (NEGATIVE) H 07/14/19 06:47 Urine Bilirubin NEGATIVE (NEGATIVE) 07/14/19 06:47 Urine Urobilinogen NEGATIVE mg/dL (<2.0) 07/14/19 06:47 Ur Leukocyte Esterase LARGE (NEGATIVE) H 07/14/19 06:47 Urine WBC (Auto) 75 /HPF 07/14/19 06:47 Urine RBC (Auto) 10 /HPF 07/14/19 06:47 Urine Bacteria (Auto) TRACE /HPF 07/14/19 06:47 Squamous Epi Cells Auto <1 /HPF 07/14/19 06:47 Urine Mucus (Auto) RARE /LPF 07/14/19 06:47 Urine Ascorbic Acid NEGATIVE (NEGATIVE) 07/14/19 06:47 07/14/19 04:50 Troponin I 0.267 Impressions: Chest X-Ray 07/14/19 04:55 IMPRESSION: 1. New volume loss in the left lung base concerning for an infectious or inflammatory process and possible small left pleural effusion. 2. Mild chronic fibrotic changes versus acute inflammatory changes in the right lung base. 3. Chronic pleural parenchymal scarring in the left lung apex. 4. Hyperinflation of the lungs. 5. Acute displaced fracture through the right humeral neck and diffuse osteopenia Chest X-Ray 07/19/19 00:00 IMPRESSION: 1. Emphysematous change with improved left basilar aeration. 2. Pleuroparenchymal change at the left lung apex, stable from recent prior but increased from more remote priors. Findings may represent infection or chronic scarring although although underlying lesion is not excluded. Consider CT for further characterization. 3. Unchanged right surgical neck humerus fracture. Modified Barium Swallow 07/19/19 00:00 IMPRESSION: NO EVIDENCE OF PENETRATION OR ASPIRATION. PLEASE SEE SPEECH PATHOLOGIST REPORT FOR OTHER FINDINGS AND RECOMMENDATIONS. Plan Plan of Treatment: Return to SNF for short term rehab. Follow up with PCP within 1 week. Take medications as prescribed. Return to the emergency department as needed for concerning symptoms. Stroke Is this a Stroke Patient?: No Acute Heart Failure - Is this a Heart Failure Patient?: No
== END 2019-07-20 19:03 | DRG 193 ==
LOC: ER 04:47 → EH 08:28 → 3S 12:10
PROVIDERS: ADMIT Hospitalist; ATTEND Hospitalist
PROC: 3E0234Z Introduction of Serum, Toxoid and Vaccine into Muscle, Percutaneous Approach (ICD-10-PCS; principal; 2019-07-20)
DX: J18.9 Pneumonia, unspecified organism (principal); S72.141A Displaced intertrochanteric fracture of right femur, initial encounter for closed fracture; J96.02 Acute respiratory failure with hypercapnia; J96.01 Acute respiratory failure with hypoxia; E43 Unspecified severe protein-calorie malnutrition; S42.221A 2-part displaced fracture of surgical neck of right humerus, initial encounter for closed fracture; I69.351 Hemiplegia and hemiparesis following cerebral infarction affecting right dominant side; Z68.1 Body mass index [BMI] 19.9 or less, adult; I10 Essential (primary) hypertension; J43.9 Emphysema, unspecified; F03.90 Unspecified dementia, unspecified severity, without behavioral disturbance, psychotic disturbance, mood disturbance, and anxiety; I69.320 Aphasia following cerebral infarction; W18.39XA Other fall on same level, initial encounter; Y93.89 Activity, other specified; Y92.098 Other place in other non-institutional residence as the place of occurrence of the external cause; Z23 Encounter for immunization
CPT/HCPCS: 36415; 36600; 71045; 74230; 80048; 80053; 81001; 82803; 83605; 83735; 84134; 84484; 85025; 85027; 85610; 85730; 87040; 87086; 87088; 87186; 90686; 93005; 93010; 94640; 94660; 94667; 94668; 94762; 94799; 96365; 96367; 99285; J0456; J0696; J1644; J2543; J3490; J7060; J7620